=== PATIENT | male | born 1935 | race Caucasian/White ===

== ENCOUNTER 2017-02-16 17:35 | Inpatient (IN) | payer MEDICARE ==
[2017-02-16] MEDS: BUDESONIDE 0.5 MG/2 ML NEBU INHALATION SCH (20:48)
[2017-02-16] MEDS: IPRATROPIUM-ALBUTEROL 3 ML NEB INHALATION SCH (20:48)
[2017-02-16] MEDS: MORPHINE SULFATE 2 MG/ML SYRINGE IVP PRN (22:01)
[2017-02-16] MEDS: AMPICILLIN-SULBACTAM 1.5 GM in SODIUM CHLORIDE 0.9% 50 ML IVPB SCH (23:38)
[2017-02-16] MEDS ORDERED: LISINOPRIL 2.5 MG TAB PO SCH (23:45)
[2017-02-17] MEDS: oxyCODONE-APAP 5-325MG 1 EACH TAB PO PRN ×3 (00:27→14:47)
[2017-02-17] MEDS: METOPROLOL TARTRATE 50 MG TAB PO SCH ×3 (01:00→22:00)
[2017-02-17] MEDS: ATORVASTATIN 10 MG TAB PO SCH ×2 (01:01→22:00)
[2017-02-17] MEDS: MORPHINE SULFATE 2 MG/ML SYRINGE IVP PRN ×2 (03:51→11:17)
[2017-02-17 06:02] LABS: Basophils % (A) 0 %; CH 32.1; CHCM 33.6; Eosinophils # (A) 0.1 k/uL (0-0.7); Eosinophils % (A) 1 %; HCT 27.4 % (39.0-53.0); HDW 2.57; HGB 9.2 gm/dL (13.0-17.5); Luc # (Auto) 0.11; Luc % (Auto) 1; Lymphocytes # (A) 1.2 k/uL (1.0-4.8); Lymphocytes % (A) 11 %; MCH 32.2 pg (25.0-35.0); MCHC 33.5 g/dL (31.0-37.0); Mean Platelet Volume 7.8; Monocytes # (A) 0.9 k/uL (0-1.0); Monocytes % (A) 8 %; Neutrophils # (A) 8.5 k/uL (1.3-7.7); Neutrophils % (A) 79 %; RBC 2.86 m/uL (4.30-5.90); RDW 13.5 % (11.5-15.5); WBC 10.8 k/uL (3.8-10.6); WBC (Perox) 10.77
[2017-02-17 06:15] LABS: Anion Gap 4 mmol/L; Blood Urea Nitrogen 28 mg/dL (9-20); Calcium 8.6 mg/dL (8.4-10.2); Carbon Dioxide 31 mmol/L (22-30); Chloride 101 mmol/L (98-107); Glucose 85 mg/dL (74-99); Magnesium 1.6 mg/dL (1.6-2.3); Non-African American GFR(MDRD) 58 (>60 ml/min/1.73 sqM); Phosphorous 3.1 mg/dL (2.5-4.5); Potassium 3.8 mmol/L (3.5-5.1); Sodium 136 mmol/L (137-145)
[2017-02-17 06:27] LABS: Glucose,Whole Blood 91 mg/dL (75-99)
[2017-02-17] MEDS: INSULIN LISPRO (humaLOG) 300 UNIT/3 ML VIAL SQ SCH ×4 (06:52→22:01)
[2017-02-17] MEDS: BUDESONIDE 0.5 MG/2 ML NEBU INHALATION SCH ×2 (07:58→20:16)
[2017-02-17] MEDS: IPRATROPIUM-ALBUTEROL 3 ML NEB INHALATION SCH ×4 (07:59→20:16)
[2017-02-17] MEDS: LIDOCAINE 5% PATCH TOPICAL SCH (08:54)
[2017-02-17] MEDS: AMPICILLIN-SULBACTAM 1.5 GM in SODIUM CHLORIDE 0.9% 50 ML IVPB SCH ×3 (08:54→23:12)
[2017-02-17] MEDS: methylPREDNISolone SOD SUCCI 40 MG/ML 1 ML VIAL IV SCH ×2 (08:55→22:01)
[2017-02-17] MEDS: LISINOPRIL 5 MG TAB PO SCH ×2 (08:55→22:00)
[2017-02-17] MEDS ORDERED: ENOXAPARIN 40 MG/0.4 ML SYRINGE SQ SCH (09:00)
--- NOTE | 2017-02-17 09:45 | XR ---
EXAMINATION TYPE: XR chest 2V DATE OF EXAM: 02/17/2017 9:25 AM COMPARISON: NONE HISTORY: Pneumothorax. TECHNIQUE: Frontal and lateral views of the chest are obtained. FINDINGS: There is right-sided small pneumothorax estimated approximately 15%. There is small right- sided pleural fluid collection or hydropneumothorax noted. There is patchy bibasilar atelectasis. No mediastinal shift is seen. The cardiac silhouette size is within normal limits. There are multiple di splaced posterior lateral right rib fractures. Flail chest is suspected with at least 3 consecutive r ibs fractured in 2 or more locations. There is partial visualization of surgical change in the mid eli mbar spine. IMPRESSION: Small right hydropneumothorax estimated 15%. No mediastinal shift. Bibasilar atelectasis is noted. Flail chest appearance strongly suspected. Results communicated to patient's nurse via telephone. Small right pneumothorax is noted on transfer from outside institution.
[2017-02-17] MEDS ORDERED: DEXTROSE 50%-WATER 50 ML SYRINGE IVP ONE (11:58)
[2017-02-17 12:16] LABS: Glucose,Whole Blood 65 mg/dL (75-99)
[2017-02-17 12:22] LABS: Glucose,Whole Blood 73 mg/dL (75-99)
[2017-02-17] MEDS: DEXTROSE 5% IN WATER 1,000 ML IV SCH (12:29)
--- NOTE | 2017-02-17 13:59 | P.CNPUL ---
History of Present Illness Consult date: 02/17/17 Reason for consult: pneumothorax Chief complaint: Pneumothorax History of present illness: This is an 81-year-old male who was transferred to [facility] from [facility]. The patient was admitted on 02/09/2017. He had a fall at home and had multiple right-sided rib fractures with flail chest. The patient underwent DTs during his hospital stay there. He is currently awake and alert and oriented. The patient did have a right-sided pneumothorax after which a pigtail catheter was placed. With improvement of the pneumothorax. After the catheter was removed the pneumothorax recurred. The patient was subsequently transferred to [facility] for thoracic surgery evaluation for possible pleurodesis. Review of Systems All systems: negative Past Medical History Past Medical History: COPD, GERD/Reflux, Renal Disease, Respiratory Disorder History of Any Multi-Drug Resistant Organisms: None Reported Past Surgical History: Back Surgery, Orthopedic Surgery Additional Past Surgical History / Comment(s): 5 back surgies, b/L shoulder surgies, Past Anesthesia/Blood Transfusion Reactions: No Reported Reaction Past Psychological History: No Psychological Hx Reported Smoking Status: Current every day smoker Past Alcohol Use History: Abuse Past Drug Use History: None Reported - Past Family History Father Family Medical History: No Reported History Mother Family Medical History: Unable to Obtain Medications and Allergies Home Medications Medication Instructions Recorded Confirmed Type Albuterol Inhaler [Ventolin Hfa 1 - 2 puff INHALATION RT-Q6H PRN 02/16/17 History Inhaler] Amitriptyline HCl [Elavil] 100 mg PO HS 02/16/17 02/16/17 History Lisinopril [Zestril] 5 mg PO BID 02/16/17 02/16/17 History Metoprolol Tartrate [Lopressor] 50 mg PO BID 02/16/17 02/16/17 History Omeprazole 40 mg PO DAILY 02/16/17 02/16/17 History Simvastatin [Zocor] 20 mg PO HS 02/16/17 02/16/17 History Terazosin HCl [Hytrin] 10 mg PO HS 02/16/17 02/16/17 History oxyCODONE-APAP 10-325MG [Percocet 1 tab PO Q4H PRN 02/16/17 02/16/17 History 10-325 mg] Allergies Allergy/AdvReac Type Severity Reaction Status Date / Time No Known Allergies Allergy Unverified 02/16/17 19:59 Physical Exam Osteopathic Statement: *. No significant issues noted on an osteopathic structural exam other than those noted in the History and Physical/Consult. Vitals: Vital Signs Temp Pulse Pulse Resp BP BP Pulse Ox 02/17/17 11:21 98.8 F 68 14 172/87 96 02/17/17 08:20 68 02/17/17 08:05 68 96 02/17/17 08:00 98.8 F 68 16 144/81 95 02/17/17 04:00 99.2 F 67 18 194/91 211/93 98 02/17/17 00:00 100.1 F H 78 18 195/89 96 02/16/17 20:49 80 02/16/17 20:39 80 02/16/17 20:13 100.0 F H 84 18 199/91 97 Intake and Output 02/16/17 02/17/17 02/17/17 22:59 06:59 14:59 Intake Total 50 Output Total 1175 100 Balance -1125 -100 Intake: Intake, IV Titration 50 Amount Ampicillin-Sulbactam 1.5 50 gm In Sodium Chloride 0.9 % 50 ml @ 100 mls/hr IVPB Q8HR [facility] Rx#:[id number] Output: Urine 1175 100 Other: Voiding Method Urinal Urinal # Bowel Movements 0 Weight 65.6 kg 58 kg Gen.: Patient is alert and oriented 3, no acute distress Cardiovascular: Regular rate and rhythm, S1/S2 Lungs: Coarse breath sounds bilaterally Abdomen: Soft nontender nondistended positive bowel sounds Extremities: No edema Results - Laboratory Findings CBC and BMP: 02/17/17 05:44 02/17/17 05:44 Abnormal lab findings: Abnormal Labs 02/17/17 02/17/17 02/17/17 05:44 05:44 11:55 WBC 10.8 H RBC 2.86 L Hgb 9.2 L Hct 27.4 L Neutrophils # 8.5 H Sodium 136 L Carbon Dioxide 31 H BUN 28 H POC Glucose (mg/dL) 65 L 02/17/17 12:18 WBC RBC Hgb Hct Neutrophils # Sodium Carbon Dioxide BUN POC Glucose (mg/dL) 73 L - Diagnostic Findings Chest x-ray: report reviewed, image reviewed Assessment and Plan Plan: Status post fall with multiple right-sided rib fractures Flail chest Right [place]-pneumothorax Acute exacerbation of COPD Acute hypoxic respiratory failure Aspiration pneumonia, now improving Elevated right hemidiaphragm Chronic kidney disease stage III Alcoholism Active tobacco abuse Anemia Hyponatremia O2 to maintain saturation greater than or equal to 90% Pain control Consult thoracic surgery for possible pleurodesis Consideration for possible rib plating Pulmicort Steroid taper Duo nebs PT and OT Incentive spirometry and pulmonary hygiene GI and DVT prophylaxis Thank you for this consultation we'll continue to follow along
--- NOTE | 2017-02-17 15:44 | P.GSCN ---
History of Present Illness Consult date: 02/17/17 Reason for Consult: right hydropneumothorax status post right sided rib fractures Requesting physician: Marbin Garcia History of present illness: patient is an 81 years old gentleman transferred from [facility]. He was admitted there on 02/09/2017 status post mechanical fall at home with resultant multiple right-sided rib fractures. Patient at some point required a right-sided pigtail catheter for a right-sided pneumothorax with good expansion of the lung, however the right pneumothorax reformed after removing the catheter and patient was transferred to [facility] for further management. Patient clinically is stable. His O2 saturation is anywhere between 94-96% on 3 L. His vitals are stable with slight elevated blood pressure. He is giving a good cough without excessive pain. He is using his incentive spirometer with a level at around 800 mL at this point. Review of Systems - Cardiovascular Reports dyspnea on exertion - Respiratory Reports cough, Reports dyspnea, Reports pain on inspiration - Gastrointestinal Reports heartburn - Musculoskeletal Reports gait dysfunction - Neurological Reports balance difficulties Past Medical History Past Medical History: COPD, GERD/Reflux, Renal Disease, Respiratory Disorder History of Any Multi-Drug Resistant Organisms: None Reported Past Surgical History: Back Surgery, Orthopedic Surgery Additional Past Surgical History / Comment(s): 5 back surgies, b/L shoulder surgies, Past Anesthesia/Blood Transfusion Reactions: No Reported Reaction Past Psychological History: No Psychological Hx Reported Smoking Status: Current every day smoker Past Alcohol Use History: Abuse Past Drug Use History: None Reported - Past Family History Father Family Medical History: No Reported History Mother Family Medical History: Unable to Obtain Medications and Allergies Home Medications Medication Instructions Recorded Confirmed Type Albuterol Inhaler [Ventolin Hfa 1 - 2 puff INHALATION RT-Q6H PRN 02/16/17 History Inhaler] Amitriptyline HCl [Elavil] 100 mg PO HS 02/16/17 02/16/17 History Lisinopril [Zestril] 5 mg PO BID 02/16/17 02/16/17 History Metoprolol Tartrate [Lopressor] 50 mg PO BID 02/16/17 02/16/17 History Omeprazole 40 mg PO DAILY 02/16/17 02/16/17 History Simvastatin [Zocor] 20 mg PO HS 02/16/17 02/16/17 History Terazosin HCl [Hytrin] 10 mg PO HS 02/16/17 02/16/17 History oxyCODONE-APAP 10-325MG [Percocet 1 tab PO Q4H PRN 02/16/17 02/16/17 History 10-325 mg] Allergies Allergy/AdvReac Type Severity Reaction Status Date / Time No Known Allergies Allergy Unverified 02/16/17 19:59 Surgical - Exam Vital Signs Temp Pulse Resp BP Pulse Ox 100.0 F H 84 18 199/91 97 02/16/17 20:13 02/16/17 20:13 02/16/17 20:13 02/16/17 20:13 02/16/17 20:13 - General no distress - Respiratory right: dullness - Cardiovascular Heart Sounds: normal: S1, S2 - Abdomen Abdomen: soft, non tender, no guarding, no rigid, no rebound - Genitourinary deferred - Rectum deferred - Musculoskeletal uses a cane to walk Results - Labs 02/17/17 05:44 02/17/17 05:44 Abnormal Lab Results - Last 24 Hours (Table) 02/17/17 02/17/17 02/17/17 Range/Units 05:44 05:44 11:55 WBC 10.8 H (3.8-10.6) k/uL RBC 2.86 L (4.30-5.90) m/uL Hgb 9.2 L (13.0-17.5) gm/dL Hct 27.4 L (39.0-53.0) % Neutrophils # 8.5 H (1.3-7.7) k/uL Sodium 136 L (137-145) mmol/L Carbon Dioxide 31 H (22-30) mmol/L BUN 28 H (9-20) mg/dL POC Glucose (mg/dL) 65 L (75-99) mg/dL 02/17/17 Range/Units 12:18 WBC (3.8-10.6) k/uL RBC (4.30-5.90) m/uL Hgb (13.0-17.5) gm/dL Hct (39.0-53.0) % Neutrophils # (1.3-7.7) k/uL Sodium (137-145) mmol/L Carbon Dioxide (22-30) mmol/L BUN (9-20) mg/dL POC Glucose (mg/dL) 73 L (75-99) mg/dL Diabetes panel 02/17/17 Range/Units 05:44 Sodium 136 L (137-145) mmol/L Potassium 3.8 (3.5-5.1) mmol/L Chloride 101 (98-107) mmol/L Carbon Dioxide 31 H (22-30) mmol/L BUN 28 H (9-20) mg/dL Creatinine 1.20 (0.66-1.25) mg/dL Glucose 85 (74-99) mg/dL Calcium 8.6 (8.4-10.2) mg/dL Calcium panel 02/17/17 Range/Units 05:44 Calcium 8.6 (8.4-10.2) mg/dL Phosphorus 3.1 (2.5-4.5) mg/dL Pituitary panel 02/17/17 Range/Units 05:44 Sodium 136 L (137-145) mmol/L Potassium 3.8 (3.5-5.1) mmol/L Chloride 101 (98-107) mmol/L Carbon Dioxide 31 H (22-30) mmol/L BUN 28 H (9-20) mg/dL Creatinine 1.20 (0.66-1.25) mg/dL Glucose 85 (74-99) mg/dL Calcium 8.6 (8.4-10.2) mg/dL Adrenal panel 02/17/17 Range/Units 05:44 Sodium 136 L (137-145) mmol/L Potassium 3.8 (3.5-5.1) mmol/L Chloride 101 (98-107) mmol/L Carbon Dioxide 31 H (22-30) mmol/L BUN 28 H (9-20) mg/dL Creatinine 1.20 (0.66-1.25) mg/dL Glucose 85 (74-99) mg/dL Calcium 8.6 (8.4-10.2) mg/dL - Imaging Chest x-ray: report reviewed, image reviewed Assessment and Plan Plan: 81 years old gentleman active smoker status post mechanical fall on 02/09/2017 with resultant multiple right-sided rib fractures. Currently there is a right pneumothorax with some right-sided effusion status post removal of pigtail catheter. It is relatively comfortable on low oxygen more than 1 week after his fall and see no indication for rib fixation. As far as the right hydropneumothorax, I would with a repeat x-ray tomorrow and make a decision accordingly. Meanwhile patient should continue using his incentive spirometer along with medical therapy to optimize his lungs. We'll be following the patient closely with you. Thank you for the privilege of this consult
[2017-02-17 16:52] LABS: Glucose,Whole Blood 149 mg/dL (75-99)
--- NOTE | 2017-02-17 17:10 | P.HPIM ---
History of Present Illness H&P Date: 02/17/17 81-year-old gentleman who was admitted to Dr. Atkinson's service wasn't seen in cross coverage at [facility]. Patient apparently had sustained a fall as well as rib fractures noted on the right side initially thereafter patient was noted to have a pneumothorax on the right side. He shouldn't was started on a Thora vent which was discontinued on 02/15/2017. A repeat chest x- ray after removal of the catheter did not note any pneumothorax. Patient was seen on my service on 02/16/2017 appeared to have some difficulty breathing. Up obtained a repeat chest x-ray was noted to have a 15-20% pneumothorax. Patient was also having significant amount of pain with no significant progression after 5 days patient was triaged to [facility] for evaluation by thoracic surgeon. Today patient appears to be doing well states that his breathing is stable denies having headaches, blurry vision, nausea, vomiting, diarrhea. Off note patient's reason for fall was attribute it to a mechanical reason and patient also having a significant amount of alcohol intake. Review of Systems All systems: negative (Noted in HPI) Past Medical History Past Medical History: COPD, GERD/Reflux, Renal Disease, Respiratory Disorder History of Any Multi-Drug Resistant Organisms: None Reported Past Surgical History: Back Surgery, Orthopedic Surgery Additional Past Surgical History / Comment(s): 5 back surgies, b/L shoulder surgies, Past Anesthesia/Blood Transfusion Reactions: No Reported Reaction Past Psychological History: No Psychological Hx Reported Smoking Status: Current every day smoker Past Alcohol Use History: Abuse Past Drug Use History: None Reported - Past Family History Father Family Medical History: No Reported History Mother Family Medical History: Unable to Obtain Medications and Allergies Home Medications Medication Instructions Recorded Confirmed Type Albuterol Inhaler [Ventolin Hfa 1 - 2 puff INHALATION RT-Q6H PRN 02/16/17 History Inhaler] Amitriptyline HCl [Elavil] 100 mg PO HS 02/16/17 02/16/17 History Lisinopril [Zestril] 5 mg PO BID 02/16/17 02/16/17 History Metoprolol Tartrate [Lopressor] 50 mg PO BID 02/16/17 02/16/17 History Omeprazole 40 mg PO DAILY 02/16/17 02/16/17 History Simvastatin [Zocor] 20 mg PO HS 02/16/17 02/16/17 History Terazosin HCl [Hytrin] 10 mg PO HS 02/16/17 02/16/17 History oxyCODONE-APAP 10-325MG [Percocet 1 tab PO Q4H PRN 02/16/17 02/16/17 History 10-325 mg] Allergies Allergy/AdvReac Type Severity Reaction Status Date / Time No Known Allergies Allergy Unverified 02/16/17 19:59 Physical Exam Vitals: Vital Signs Temp Pulse Pulse Resp BP BP Pulse Ox 02/17/17 16:11 76 02/17/17 16:01 80 02/17/17 15:27 98.8 F 91 16 148/74 94 L 02/17/17 11:21 98.8 F 68 14 172/87 96 02/17/17 08:20 68 02/17/17 08:05 68 96 02/17/17 08:00 98.8 F 68 16 144/81 95 02/17/17 04:00 99.2 F 67 18 194/91 211/93 98 02/17/17 00:00 100.1 F H 78 18 195/89 96 02/16/17 20:49 80 02/16/17 20:39 80 02/16/17 20:13 100.0 F H 84 18 199/91 97 Intake and Output 02/17/17 02/17/17 02/17/17 06:59 14:59 22:59 Intake Total 50 200 Output Total 1175 600 100 Balance -1125 -400 -100 Intake: Intake, IV Titration 50 200 Amount Ampicillin-Sulbactam 1.5 50 50 gm In Sodium Chloride 0.9 % 50 ml @ 100 mls/hr IVPB Q8HR [facility] Rx#:[id number] Dextrose 5% in Water 1, 150 000 ml @ 75 mls/hr IV . [id number] [facility] Rx#:[id number] Output: Urine 1175 600 100 Other: Voiding Method Urinal Urinal Urinal # Bowel Movements 0 Weight 58 kg Physical exam Gen. appearance oriented 3 in no distress Neck is supple no JVD Lungs diminished breath sounds no significant wheezing rhonchi or crackles Heart S1-S2 heard regular rate and rhythm no murmurs appreciated Abdomen is soft nontender no organomegaly bowel sounds are intact Neurologically cranial nerves II-12 grossly intact no focal motor or sensory deficits noted Unstable gait Skin no abnormalities appreciated Results CBC & Chem 7: 02/17/17 05:44 02/17/17 05:44 Labs: Abnormal Lab Results - Last 24 Hours (Table) 02/17/17 02/17/17 02/17/17 Range/Units 05:44 05:44 11:55 WBC 10.8 H (3.8-10.6) k/uL RBC 2.86 L (4.30-5.90) m/uL Hgb 9.2 L (13.0-17.5) gm/dL Hct 27.4 L (39.0-53.0) % Neutrophils # 8.5 H (1.3-7.7) k/uL Sodium 136 L (137-145) mmol/L Carbon Dioxide 31 H (22-30) mmol/L BUN 28 H (9-20) mg/dL POC Glucose (mg/dL) 65 L (75-99) mg/dL 02/17/17 02/17/17 Range/Units 12:18 16:45 WBC (3.8-10.6) k/uL RBC (4.30-5.90) m/uL Hgb (13.0-17.5) gm/dL Hct (39.0-53.0) % Neutrophils # (1.3-7.7) k/uL Sodium (137-145) mmol/L Carbon Dioxide (22-30) mmol/L BUN (9-20) mg/dL POC Glucose (mg/dL) 73 L 149 H (75-99) mg/dL Thrombosis Risk Factor Assmnt - Choose All That Apply Any of the Below Risk Factors Present?: Yes Each Factor Represents 1 point: Abnormal pulmonary function (COPD), Medical pt on bed rest Each Risk Factor Represents 3 Points: Age 75 years or older Other congenital or acquired thrombophilia - If yes, enter type in comment: No Each Risk Factor Represents 5 Points: Multiple trauma (< 1 month) Thrombosis Risk Factor Assessment Total Risk Factor Score: 10 Thrombosis Risk Factor Assessment Level: High Risk Assessment and Plan Plan: Right-sided pneumothorax secondary to a traumatic fall causing right-sided rib fractures #2 history of hypertension #3 alcohol abuse. #4 CK D stage III #5 COPD #6 GERD #7 chronic opioid dependency #8 acute tracheobronchitis with some suspicion for an aspiration pneumonia Plan Discussed the case with the CT surgery and the pulmonology team. Continue ongoing care will continue with antibiotics. Patient's blood pressure medications were appropriately reconciled. In regards to patient's alcohol use will obtain a Folic acid and B12 levels as well PT OT should be consulted tomorrow. Will continue monitoring as per discussion with the thoracic surgery Repeat labs in a.m. DVT prophylaxis.
[2017-02-17] MEDS: HEPARIN SODIUM,PORCINE 5,000 UNIT/ML 1 ML VIAL SQ SCH ×2 (17:43→23:13)
[2017-02-17 21:42] LABS: Glucose,Whole Blood 200 mg/dL (75-99)
[2017-02-18] MEDS: DEXTROSE 5% IN WATER 1,000 ML IV SCH ×2 (02:34→15:45)
[2017-02-18 06:37] LABS: Glucose,Whole Blood 125 mg/dL (75-99)
[2017-02-18] MEDS: INSULIN LISPRO (humaLOG) 300 UNIT/3 ML VIAL SQ SCH ×4 (06:37→21:18)
[2017-02-18] MEDS: PANTOPRAZOLE 40 MG TABLET PO SCH (06:43)
[2017-02-18 07:13] LABS: Basophils % (A) 0 %; CH 31.9; CHCM 32.9; Eosinophils % (A) 0 %; HCT 28.8 % (39.0-53.0); HGB 9.4 gm/dL (13.0-17.5); Luc % (Auto) 1; Lymphocytes # (A) 0.7 k/uL (1.0-4.8); Lymphocytes % (A) 7 %; MCH 31.9 pg (25.0-35.0); MCHC 32.7 g/dL (31.0-37.0); MCV 97.4 fL (80.0-100.0); Mean Platelet Volume 7.1; Monocytes # (A) 0.6 k/uL (0-1.0); Monocytes % (A) 6 %; Neutrophils # (A) 8.6 k/uL (1.3-7.7); Neutrophils % (A) 86 %; RBC 2.96 m/uL (4.30-5.90); RDW 13.5 % (11.5-15.5); WBC (Perox) 10.14
[2017-02-18 07:22] LABS: ALT 28 U/L (21-72); AST 22 U/L (17-59); Alkaline Phosphatase 50 U/L (38-126); Anion Gap 9 mmol/L; Blood Urea Nitrogen 31 mg/dL (9-20); Calcium 8.6 mg/dL (8.4-10.2); Carbon Dioxide 28 mmol/L (22-30); Chloride 99 mmol/L (98-107); Glucose 113 mg/dL (74-99); Non-African American GFR(MDRD) >60 (>60 ml/min/1.73 sqM); Potassium 4.2 mmol/L (3.5-5.1); Sodium 136 mmol/L (137-145); Total Bilirubin 0.7 mg/dL (0.2-1.3); Total Protein 5.9 g/dL (6.3-8.2)
--- NOTE | 2017-02-18 07:27 | XR ---
EXAMINATION TYPE: XR chest 2V DATE OF EXAM: 02/18/2017 6:30 AM COMPARISON: 02/17/2017 HISTORY: Shortness of breath TECHNIQUE: Frontal and lateral views of the chest are obtained. FINDINGS: Right-sided pneumothorax persists and appears to have enlarged in the interval. Measurement from the chest wall to the pleural alignment currently is 3.3 cm versus 1.8 cm previously. Multiple right-sided ribs noted which are displaced both reflect flail chest. No evidence for infiltrate. Right-sided basilar atelectasis noted. Heart size is stable. Mediastinal structures are stable and grossly unremarkable. No evidence for hilar prominence. Degenerative changes dorsal spine. IMPRESSION: 1. Progression of right-sided pneumothorax estimated at 20-25%. 2. Multiple right-sided rib fractures with flail chest appearance. A Yellow message has been communicated to Linda Ramirez via the [employer] Critical Result system on 02/18/2017 7:24 AM, Message ID [id number].
--- NOTE | 2017-02-18 08:01 | P.PN ---
Subjective Principal diagnosis: pneumothorax This is a continue progress note an 81-year-old white male essentially transferred from [facility] with history of trauma resulting in rib fractures. Possible flail chest was considered. He seems stable at this time. He would like to go home. He has an underlying history of DJD with COPD otherwise. Objective - Vital Signs Vital signs: Vital Signs Temp 99.5 F 02/17/17 20:00 Pulse 98 02/18/17 04:00 Resp 20 02/18/17 04:00 BP 181/97 02/18/17 04:00 Pulse Ox 96 02/18/17 04:00 Intake & Output 02/17/17 02/18/17 02/18/17 18:59 06:59 18:59 Intake Total 200 Output Total 700 450 Balance -500 -450 Weight 58 kg Intake: Intake, IV Titration 200 Amount Ampicillin-Sulbactam 1.5 50 gm In Sodium Chloride 0.9 % 50 ml @ 100 mls/hr IVPB Q8HR [facility] Rx#:[id number] Dextrose 5% in Water 1, 150 000 ml @ 75 mls/hr IV . [id number] [facility] Rx#:[id number] Output: Urine 700 450 Other: Voiding Method Urinal # Bowel Movements 0 - Constitutional General appearance: Present: thin - EENT Eyes: Absent: abnormal pupil - Respiratory Respiratory: bilateral: diminished - Cardiovascular Rhythm: regular - Gastrointestinal General gastrointestinal: Present: soft. Absent: tenderness - Integumentary Integumentary: Absent: cyanotic - Labs CBC & Chem 7: 02/18/17 06:36 02/18/17 06:36 Labs: Abnormal Lab Results - Last 24 Hours (Table) 02/17/17 02/17/17 02/17/17 Range/Units 11:55 12:18 16:45 RBC (4.30-5.90) m/uL Hgb (13.0-17.5) gm/dL Hct (39.0-53.0) % Neutrophils # (1.3-7.7) k/uL Lymphocytes # (1.0-4.8) k/uL Sodium (137-145) mmol/L BUN (9-20) mg/dL Glucose (74-99) mg/dL POC Glucose (mg/dL) 65 L 73 L 149 H (75-99) mg/dL Total Protein (6.3-8.2) g/dL Albumin (3.5-5.0) g/dL 02/17/17 02/18/17 02/18/17 Range/Units 21:13 06:33 06:36 RBC 2.96 L (4.30-5.90) m/uL Hgb 9.4 L (13.0-17.5) gm/dL Hct 28.8 L (39.0-53.0) % Neutrophils # 8.6 H (1.3-7.7) k/uL Lymphocytes # 0.7 L (1.0-4.8) k/uL Sodium (137-145) mmol/L BUN (9-20) mg/dL Glucose (74-99) mg/dL POC Glucose (mg/dL) 200 H 125 H (75-99) mg/dL Total Protein (6.3-8.2) g/dL Albumin (3.5-5.0) g/dL 02/18/17 Range/Units 06:36 RBC (4.30-5.90) m/uL Hgb (13.0-17.5) gm/dL Hct (39.0-53.0) % Neutrophils # (1.3-7.7) k/uL Lymphocytes # (1.0-4.8) k/uL Sodium 136 L (137-145) mmol/L BUN 31 H (9-20) mg/dL Glucose 113 H (74-99) mg/dL POC Glucose (mg/dL) (75-99) mg/dL Total Protein 5.9 L (6.3-8.2) g/dL Albumin 3.2 L (3.5-5.0) g/dL Assessment and Plan (1) Pneumothorax Status: Acute (2) Rib fracture Status: Acute (3) Opiate dependence Status: Acute (4) COPD (chronic obstructive pulmonary disease) Status: Acute (5) DJD (degenerative joint disease) Status: Acute Plan: await decision from thoracic surgery for treatment. Continue to follow with pulmonology. See orders otherwise. Time with Patient: Greater than 30
[2017-02-18] MEDS: METOPROLOL TARTRATE 50 MG TAB PO SCH ×2 (08:57→21:35)
[2017-02-18] MEDS: LIDOCAINE 5% PATCH TOPICAL SCH (08:57)
[2017-02-18] MEDS: LISINOPRIL 5 MG TAB PO SCH ×2 (08:58→21:35)
[2017-02-18] MEDS: HEPARIN SODIUM,PORCINE 5,000 UNIT/ML 1 ML VIAL SQ SCH ×2 (08:58→15:52)
[2017-02-18] MEDS: methylPREDNISolone SOD SUCCI 40 MG/ML 1 ML VIAL IV SCH ×2 (08:58→21:35)
[2017-02-18] MEDS: BUDESONIDE 0.5 MG/2 ML NEBU INHALATION SCH ×2 (09:03→21:10)
[2017-02-18] MEDS: IPRATROPIUM-ALBUTEROL 3 ML NEB INHALATION SCH ×4 (09:03→21:10)
[2017-02-18] MEDS: oxyCODONE-APAP 5-325MG 1 EACH TAB PO PRN (09:21)
--- NOTE | 2017-02-18 10:55 | P.PN ---
Subjective Principal diagnosis: Right pneumothorax Patient seen and examined. Patient states he does not feel well today. He states he is having more shortness of breath. He is unable to cough and expectorate his sputum. He states his pain is "extremely bad." Objective - Vital Signs Vital signs: Vital Signs Temp 97.3 F L 02/18/17 08:00 Pulse 96 02/18/17 09:28 Resp 20 02/18/17 08:00 BP 192/100 02/18/17 08:00 Pulse Ox 94 L 02/18/17 08:00 Intake & Output 02/17/17 02/18/17 02/18/17 18:59 06:59 18:59 Intake Total 200 50 Output Total 700 450 Balance -500 -450 50 Weight 58 kg Intake: Intake, IV Titration 200 50 Amount Ampicillin-Sulbactam 1.5 50 50 gm In Sodium Chloride 0.9 % 50 ml @ 100 mls/hr IVPB Q8HR [facility] Rx#:[id number] Dextrose 5% in Water 1, 150 000 ml @ 75 mls/hr IV . [id number] [facility] Rx#:[id number] Output: Urine 700 450 Other: Voiding Method Urinal Urinal # Bowel Movements 0 - Exam Gen.: Patient is alert and oriented 3, no acute distress Cardiovascular: Regular rate and rhythm, S1/S2 Lungs: Coarse breath sounds bilaterally Abdomen: Soft nontender nondistended positive bowel sounds Extremities: No edema - Labs CBC & Chem 7: 02/18/17 06:36 02/18/17 06:36 Labs: Abnormal Lab Results - Last 24 Hours (Table) 02/17/17 02/17/17 02/17/17 Range/Units 11:55 12:18 16:45 RBC (4.30-5.90) m/uL Hgb (13.0-17.5) gm/dL Hct (39.0-53.0) % Neutrophils # (1.3-7.7) k/uL Lymphocytes # (1.0-4.8) k/uL Sodium (137-145) mmol/L BUN (9-20) mg/dL Glucose (74-99) mg/dL POC Glucose (mg/dL) 65 L 73 L 149 H (75-99) mg/dL Total Protein (6.3-8.2) g/dL Albumin (3.5-5.0) g/dL 02/17/17 02/18/17 02/18/17 Range/Units 21:13 06:33 06:36 RBC 2.96 L (4.30-5.90) m/uL Hgb 9.4 L (13.0-17.5) gm/dL Hct 28.8 L (39.0-53.0) % Neutrophils # 8.6 H (1.3-7.7) k/uL Lymphocytes # 0.7 L (1.0-4.8) k/uL Sodium (137-145) mmol/L BUN (9-20) mg/dL Glucose (74-99) mg/dL POC Glucose (mg/dL) 200 H 125 H (75-99) mg/dL Total Protein (6.3-8.2) g/dL Albumin (3.5-5.0) g/dL 02/18/17 Range/Units 06:36 RBC (4.30-5.90) m/uL Hgb (13.0-17.5) gm/dL Hct (39.0-53.0) % Neutrophils # (1.3-7.7) k/uL Lymphocytes # (1.0-4.8) k/uL Sodium 136 L (137-145) mmol/L BUN 31 H (9-20) mg/dL Glucose 113 H (74-99) mg/dL POC Glucose (mg/dL) (75-99) mg/dL Total Protein 5.9 L (6.3-8.2) g/dL Albumin 3.2 L (3.5-5.0) g/dL Assessment and Plan Plan: Status post fall with multiple right-sided rib fractures Flail chest Right [place]-pneumothorax Acute exacerbation of COPD Acute hypoxic respiratory failure Aspiration pneumonia, now improving Elevated right hemidiaphragm Chronic kidney disease stage III Alcoholism Active tobacco abuse Anemia Hyponatremia O2 to maintain saturation greater than or equal to 90% Pain control Thoracic surgery for possible pleurodesis Consideration for possible rib plating Pulmicort Steroid taper Duo nebs PT and OT Incentive spirometry and pulmonary hygiene GI and DVT prophylaxis
[2017-02-18] MEDS: AMPICILLIN-SULBACTAM 1.5 GM in SODIUM CHLORIDE 0.9% 50 ML IVPB SCH ×2 (11:28→17:34)
[2017-02-18 11:38] LABS: Glucose,Whole Blood 81 mg/dL (75-99)
[2017-02-18] MEDS: MORPHINE SULFATE 2 MG/ML SYRINGE IVP PRN ×3 (11:38→21:36)
--- NOTE | 2017-02-18 12:44 | P.PN ---
Subjective Principal diagnosis: Right hydropneumothorax, status post right sided rib fractures, status post right pleural chest tube removal at [facility]. Patient currently sitting up in bed in no apparent distress. States he feels no significant shortness of breath. Objective - Vital Signs Vital signs: Vital Signs Temp 97.3 F L 02/18/17 08:00 Pulse 96 02/18/17 09:28 Resp 20 02/18/17 08:00 BP 192/100 02/18/17 08:00 Pulse Ox 94 L 02/18/17 08:00 Intake & Output 02/17/17 02/18/17 02/18/17 18:59 06:59 18:59 Intake Total 200 50 Output Total 700 450 201 Balance -500 -450 -151 Weight 58 kg Intake: Intake, IV Titration 200 50 Amount Ampicillin-Sulbactam 1.5 50 50 gm In Sodium Chloride 0.9 % 50 ml @ 100 mls/hr IVPB Q8HR [facility] Rx#:[id number] Dextrose 5% in Water 1, 150 000 ml @ 75 mls/hr IV . [id number] [facility] Rx#:[id number] Output: Urine 700 450 200 Stool 1 Other: Voiding Method Urinal Urinal # Bowel Movements 0 - Constitutional General appearance: Present: cooperative, no acute distress - Respiratory Details: Lungs sounds diminished bilaterally. Respirations even, nonlabored. Currently on 3 L nasal cannula with oxygen saturations in the mid to high 90s. Able to achieve 500 mL on incentive spirometry. - Cardiovascular Details: S1, S2 present. Regular rate and rhythm, normal sinus rhythm on telemetry. No edema present. - Gastrointestinal Gastrointestinal Comment(s): Abdomen soft, nontender, nondistended. Active bowel sounds 4 quadrants. Tolerating diet. - Genitourinary Genitourinary Comment(s): Voiding clear, yellow urine. - Musculoskeletal Musculoskeletal: Present: generalized weakness, strength equal bilaterally - Psychiatric Psychiatric: Present: A&O x's 3, appropriate affect, intact judgment & insight - Allied health notes Allied health notes reviewed: nursing - Labs CBC & Chem 7: 02/18/17 06:36 02/18/17 06:36 Labs: Abnormal Lab Results - Last 24 Hours (Table) 02/17/17 02/17/17 02/18/17 Range/Units 16:45 21:13 06:33 RBC (4.30-5.90) m/uL Hgb (13.0-17.5) gm/dL Hct (39.0-53.0) % Neutrophils # (1.3-7.7) k/uL Lymphocytes # (1.0-4.8) k/uL Sodium (137-145) mmol/L BUN (9-20) mg/dL Glucose (74-99) mg/dL POC Glucose (mg/dL) 149 H 200 H 125 H (75-99) mg/dL Total Protein (6.3-8.2) g/dL Albumin (3.5-5.0) g/dL 02/18/17 02/18/17 Range/Units 06:36 06:36 RBC 2.96 L (4.30-5.90) m/uL Hgb 9.4 L (13.0-17.5) gm/dL Hct 28.8 L (39.0-53.0) % Neutrophils # 8.6 H (1.3-7.7) k/uL Lymphocytes # 0.7 L (1.0-4.8) k/uL Sodium 136 L (137-145) mmol/L BUN 31 H (9-20) mg/dL Glucose 113 H (74-99) mg/dL POC Glucose (mg/dL) (75-99) mg/dL Total Protein 5.9 L (6.3-8.2) g/dL Albumin 3.2 L (3.5-5.0) g/dL - Imaging and Cardiology Chest x-ray: report reviewed, image reviewed Assessment and Plan (1) Pneumothorax, right Status: Acute (2) Tobacco dependence Status: Acute (3) Rib fracture Status: Acute Plan: 1. Sequential chest x-rays reviewed. Patient is in no distress. Will continue to monitor, no surgical intervention at this time. 2. Encourage incentive spirometry use. 3. Encourage smoking cessation. 4. Increase activity, ambulate in hallway. 5. GI for/DVT prophylaxis. 6. Antibiotic/steroid management per pulmonology. 7. Comorbid medical conditions to be treated per primary service. 8. Repeat chest x-ray in the morning. Time with Patient: Greater than 30
[2017-02-18 16:48] LABS: Glucose,Whole Blood 108 mg/dL (75-99)
--- NOTE | 2017-02-18 17:08 | P.GSCN ---
History of Present Illness Consult date: 02/18/17 Reason for Consult: Flail chest History of present illness: This 81-year-old male admitted to Dr. Atkinson service. Patient was transferred from [facility]. Apparently he sustained a fall and had a pneumothorax the right chest with multiple rib fractures suggestive of a flail chest. Patient was transferred to [facility]. He was originally admitted to Dr. Atkinson service. Cardiac surgery was consult as well as internal medicine. Patient is currently resting in bed. He states he has right chest wall pain. His initial injury was sustained when he fell in the bathroom. It is unclear if he hit his chest against the toilet. Review of Systems - Constitutional Reports as per HPI Past Medical History Past Medical History: COPD, GERD/Reflux, Renal Disease, Respiratory Disorder History of Any Multi-Drug Resistant Organisms: None Reported Past Surgical History: Back Surgery, Orthopedic Surgery Additional Past Surgical History / Comment(s): 5 back surgies, b/L shoulder surgies, Past Anesthesia/Blood Transfusion Reactions: No Reported Reaction Past Psychological History: No Psychological Hx Reported Smoking Status: Current every day smoker Past Alcohol Use History: Abuse Past Drug Use History: None Reported - Past Family History Father Family Medical History: No Reported History Mother Family Medical History: Unable to Obtain Medications and Allergies Home Medications Medication Instructions Recorded Confirmed Type Albuterol Inhaler [Ventolin Hfa 1 - 2 puff INHALATION RT-Q6H PRN 02/16/17 History Inhaler] Amitriptyline HCl [Elavil] 100 mg PO HS 02/16/17 02/16/17 History Lisinopril [Zestril] 5 mg PO BID 02/16/17 02/16/17 History Metoprolol Tartrate [Lopressor] 50 mg PO BID 02/16/17 02/16/17 History Omeprazole 40 mg PO DAILY 02/16/17 02/16/17 History Simvastatin [Zocor] 20 mg PO HS 02/16/17 02/16/17 History Terazosin HCl [Hytrin] 10 mg PO HS 02/16/17 02/16/17 History oxyCODONE-APAP 10-325MG [Percocet 1 tab PO Q4H PRN 02/16/17 02/16/17 History 10-325 mg] Allergies Allergy/AdvReac Type Severity Reaction Status Date / Time No Known Allergies Allergy Unverified 02/16/17 19:59 Surgical - Exam Vital Signs Temp Pulse Resp BP Pulse Ox 100.0 F H 84 18 199/91 97 02/16/17 20:13 02/16/17 20:13 02/16/17 20:13 02/16/17 20:13 02/16/17 20:13 - General well developed, no distress - Eyes PERRL - ENT normal pinna - Neck no masses - Respiratory tender right chest wall normal expansion - Cardiovascular Rhythm: regular - Abdomen Abdomen: soft, non tender Results - Labs 02/18/17 06:36 02/18/17 06:36 Abnormal Lab Results - Last 24 Hours (Table) 02/17/17 02/18/17 02/18/17 Range/Units 21:13 06:33 06:36 RBC 2.96 L (4.30-5.90) m/uL Hgb 9.4 L (13.0-17.5) gm/dL Hct 28.8 L (39.0-53.0) % Neutrophils # 8.6 H (1.3-7.7) k/uL Lymphocytes # 0.7 L (1.0-4.8) k/uL Sodium (137-145) mmol/L BUN (9-20) mg/dL Glucose (74-99) mg/dL POC Glucose (mg/dL) 200 H 125 H (75-99) mg/dL Total Protein (6.3-8.2) g/dL Albumin (3.5-5.0) g/dL 02/18/17 02/18/17 Range/Units 06:36 16:31 RBC (4.30-5.90) m/uL Hgb (13.0-17.5) gm/dL Hct (39.0-53.0) % Neutrophils # (1.3-7.7) k/uL Lymphocytes # (1.0-4.8) k/uL Sodium 136 L (137-145) mmol/L BUN 31 H (9-20) mg/dL Glucose 113 H (74-99) mg/dL POC Glucose (mg/dL) 108 H (75-99) mg/dL Total Protein 5.9 L (6.3-8.2) g/dL Albumin 3.2 L (3.5-5.0) g/dL Diabetes panel 02/18/17 Range/Units 06:36 Sodium 136 L (137-145) mmol/L Potassium 4.2 (3.5-5.1) mmol/L Chloride 99 (98-107) mmol/L Carbon Dioxide 28 (22-30) mmol/L BUN 31 H (9-20) mg/dL Creatinine 1.04 (0.66-1.25) mg/dL Glucose 113 H (74-99) mg/dL Calcium 8.6 (8.4-10.2) mg/dL AST 22 (17-59) U/L ALT 28 (21-72) U/L Alkaline Phosphatase 50 (38-126) U/L Total Protein 5.9 L (6.3-8.2) g/dL Albumin 3.2 L (3.5-5.0) g/dL Calcium panel 02/18/17 Range/Units 06:36 Calcium 8.6 (8.4-10.2) mg/dL Albumin 3.2 L (3.5-5.0) g/dL Pituitary panel 02/18/17 Range/Units 06:36 Sodium 136 L (137-145) mmol/L Potassium 4.2 (3.5-5.1) mmol/L Chloride 99 (98-107) mmol/L Carbon Dioxide 28 (22-30) mmol/L BUN 31 H (9-20) mg/dL Creatinine 1.04 (0.66-1.25) mg/dL Glucose 113 H (74-99) mg/dL Calcium 8.6 (8.4-10.2) mg/dL Adrenal panel 02/18/17 Range/Units 06:36 Sodium 136 L (137-145) mmol/L Potassium 4.2 (3.5-5.1) mmol/L Chloride 99 (98-107) mmol/L Carbon Dioxide 28 (22-30) mmol/L BUN 31 H (9-20) mg/dL Creatinine 1.04 (0.66-1.25) mg/dL Glucose 113 H (74-99) mg/dL Calcium 8.6 (8.4-10.2) mg/dL Total Bilirubin 0.7 (0.2-1.3) mg/dL AST 22 (17-59) U/L ALT 28 (21-72) U/L Alkaline Phosphatase 50 (38-126) U/L Total Protein 5.9 L (6.3-8.2) g/dL Albumin 3.2 L (3.5-5.0) g/dL - Imaging Chest x-ray: report reviewed Assessment and Plan Plan: Fall with multiple right rib fractures and right hemopneumothorax. Patient is being followed by cardiovascular thoracic surgery and pulmonology. He may require reinsertion of his chest tube.
[2017-02-18 20:46] LABS: Glucose,Whole Blood 128 mg/dL (75-99)
[2017-02-18] MEDS: ATORVASTATIN 10 MG TAB PO SCH (21:35)
[2017-02-19] MEDS: HEPARIN SODIUM,PORCINE 5,000 UNIT/ML 1 ML VIAL SQ SCH ×4 (00:01→23:51)
[2017-02-19] MEDS: AMPICILLIN-SULBACTAM 1.5 GM in SODIUM CHLORIDE 0.9% 50 ML IVPB SCH ×5 (00:05→23:49)
[2017-02-19] MEDS: MORPHINE SULFATE 2 MG/ML SYRINGE IVP PRN ×6 (01:46→23:51)
[2017-02-19] MEDS: DEXTROSE 5% IN WATER 1,000 ML IV SCH ×2 (03:56→19:46)
[2017-02-19 06:43] LABS: Basophils % (A) 0 %; CH 31.2; CHCM 31.7; Eosinophils % (A) 0 %; HCT 26.3 % (39.0-53.0); HDW 2.45; HGB 8.2 gm/dL (13.0-17.5); Luc # (Auto) 0.15; Luc % (Auto) 1; Lymphocytes # (A) 0.6 k/uL (1.0-4.8); Lymphocytes % (A) 5 %; MCH 30.8 pg (25.0-35.0); MCHC 31.1 g/dL (31.0-37.0); MCV 99.1 fL (80.0-100.0); Mean Platelet Volume 6.8; Monocytes # (A) 0.7 k/uL (0-1.0); Monocytes % (A) 6 %; Neutrophils # (A) 9.5 k/uL (1.3-7.7); Neutrophils % (A) 87 %; RBC 2.65 m/uL (4.30-5.90); RDW 13.6 % (11.5-15.5); WBC 10.8 k/uL (3.8-10.6); WBC (Perox) 11.27
[2017-02-19] MEDS: INSULIN LISPRO (humaLOG) 300 UNIT/3 ML VIAL SQ SCH ×4 (06:52→20:03)
[2017-02-19 06:53] LABS: Anion Gap 8 mmol/L; Blood Urea Nitrogen 28 mg/dL (9-20); Calcium 8.4 mg/dL (8.4-10.2); Carbon Dioxide 25 mmol/L (22-30); Chloride 101 mmol/L (98-107); Glucose 117 mg/dL (74-99); Non-African American GFR(MDRD) >60 (>60 ml/min/1.73 sqM); Potassium 4.5 mmol/L (3.5-5.1); Sodium 134 mmol/L (137-145)
[2017-02-19] MEDS: PANTOPRAZOLE 40 MG TABLET PO SCH (06:53)
[2017-02-19 06:58] LABS: Glucose,Whole Blood 120 mg/dL (75-99)
--- NOTE | 2017-02-19 07:48 | XR ---
EXAMINATION TYPE: XR chest 2V DATE OF EXAM: 02/19/2017 7:23 AM COMPARISON: Chest x-ray from yesterday. HISTORY: Pneumothorax progress study. TECHNIQUE: Frontal and lateral views of the chest are obtained. FINDINGS: There is persistent moderate right-sided pneumothorax felt continued increased in size as is more prominent laterally versus prior. There is persistent right-sided pleural fluid component als o more prominent. There is increasing right basilar opacity consistent with worsening atelectasis and /or infiltrate. There is persistent patchy left basilar atelectasis and/or infiltrate. No mediastinal shift is seen. Cardiac silhouette size is stable and within normal limits without reflect thoracic a leobardo. Slight S-shaped scoliosis is present. Multiple right-sided rib fractures redemonstrated. IMPRESSION: Right-sided hydropneumothorax continued to increase in size estimated approximately 35%. Worsening right basilar atelectasis and/or infiltrate is noted. A Yellow message has been communicated to Linda Ramirez via the [facility] Result system on 02/19/2017 7:45 AM, Message ID [id number].
--- NOTE | 2017-02-19 08:21 | P.PN ---
Subjective Principal diagnosis: Pneumothorax continuing care This is a continue present 81-year-old white male essentially admitted status post fall with multiple fractures and pneumothorax. Chest x-ray shows increasing size of 35% volume. Question need to reinsert chest tube today. Appreciate surgery with thoracic/cardiac arrest with surgery consult. Objective - Vital Signs Vital signs: Vital Signs Temp 98.4 F 02/19/17 04:00 Pulse 73 02/19/17 04:00 Resp 20 02/19/17 04:00 BP 179/77 02/19/17 04:00 Pulse Ox 97 02/19/17 04:00 Intake & Output 02/18/17 02/19/17 02/19/17 18:59 06:59 18:59 Intake Total 287 Output Total 451 325 Balance -164 -325 Weight 58 kg 55.9 kg Intake: Intake, IV Titration 50 Amount Ampicillin-Sulbactam 1.5 50 gm In Sodium Chloride 0.9 % 50 ml @ 100 mls/hr IVPB Q8HR [facility] Rx#:[id number] Oral 237 Output: Urine 450 325 Stool 1 Other: Voiding Method Urinal # Voids 1 - Constitutional General appearance: Present: average body habitus, no acute distress - Respiratory Respiratory: bilateral: rhonchi - Cardiovascular Rhythm: irregularly irregular Heart sounds: normal: S1, S2 - Gastrointestinal General gastrointestinal: Present: soft. Absent: tenderness - Labs CBC & Chem 7: 02/19/17 05:47 02/19/17 05:47 Labs: Abnormal Lab Results - Last 24 Hours (Table) 02/18/17 02/18/17 02/19/17 Range/Units 16:31 20:45 05:47 WBC 10.8 H (3.8-10.6) k/uL RBC 2.65 L (4.30-5.90) m/uL Hgb 8.2 L (13.0-17.5) gm/dL Hct 26.3 L (39.0-53.0) % Neutrophils # 9.5 H (1.3-7.7) k/uL Lymphocytes # 0.6 L (1.0-4.8) k/uL Sodium (137-145) mmol/L BUN (9-20) mg/dL Glucose (74-99) mg/dL POC Glucose (mg/dL) 108 H 128 H (75-99) mg/dL 02/19/17 02/19/17 Range/Units 05:47 06:49 WBC (3.8-10.6) k/uL RBC (4.30-5.90) m/uL Hgb (13.0-17.5) gm/dL Hct (39.0-53.0) % Neutrophils # (1.3-7.7) k/uL Lymphocytes # (1.0-4.8) k/uL Sodium 134 L (137-145) mmol/L BUN 28 H (9-20) mg/dL Glucose 117 H (74-99) mg/dL POC Glucose (mg/dL) 120 H (75-99) mg/dL Assessment and Plan (1) Pneumothorax Status: Acute (2) Rib fracture Status: Acute (3) Opiate dependence Status: Acute (4) COPD (chronic obstructive pulmonary disease) Status: Acute (5) DJD (degenerative joint disease) Status: Acute Plan: Continue to follow. Again, question need for chest tube insertion. Time with Patient: Less than 30
[2017-02-19] MEDS ORDERED: LIDOCAINE 2% INJ 20 MG/ML (20 ML MDV) ONE (08:39)
[2017-02-19] MEDS: IPRATROPIUM-ALBUTEROL 3 ML NEB INHALATION SCH ×4 (08:45→19:18)
[2017-02-19] MEDS: BUDESONIDE 0.5 MG/2 ML NEBU INHALATION SCH ×2 (08:45→19:18)
--- NOTE | 2017-02-19 09:44 | XR ---
EXAMINATION TYPE: XR chest 1V portable DATE OF EXAM: 02/19/2017 9:37 AM CLINICAL HISTORY: Post Thora vent chest tube placement. TECHNIQUE: Single AP portable upright view of the chest is obtained. COMPARISON: Chest x-ray from earlier today FINDINGS: There is interval placement of small caliber chest tube projecting towards right apex with reexpansion of right lung. There is persistent right basilar opacity felt to reflect small to modera te-sized right pleural fluid collection and associated right basilar atelectasis and/or infiltrate. F ryao chest with multiple rib fractures mid lung level and at least 2 points is redemonstrated. Left l chelsie is clear. Cardiac silhouette size is difficult to assess is silhouetting of right heart border re indira present. No mediastinal shift is clearly seen. There is atherosclerotic change in aortic knob. There is anterior fusion plate in the lower cervical spine. IMPRESSION: Interval placement of small caliber chest tube with reexpansion of right lung, no sizable pneumothorax is evident. There is persistent small to moderate-sized right pleural effusion or fluid collection, possible hemothorax with associated right basilar atelectasis and/or infiltrate and mult iple right-sided rib fractures all redemonstrated.
[2017-02-19] MEDS: methylPREDNISolone SOD SUCCI 40 MG/ML 1 ML VIAL IV SCH ×2 (10:03→20:36)
[2017-02-19] MEDS: LISINOPRIL 5 MG TAB PO SCH ×2 (10:04→20:36)
[2017-02-19] MEDS: oxyCODONE-APAP 5-325MG 1 EACH TAB PO PRN (10:06)
[2017-02-19] MEDS: METOPROLOL TARTRATE 50 MG TAB PO SCH ×2 (10:06→20:36)
[2017-02-19] MEDS: LIDOCAINE 5% PATCH TOPICAL SCH (10:08)
[2017-02-19 12:10] LABS: Glucose,Whole Blood 107 mg/dL (75-99)
--- NOTE | 2017-02-19 13:17 | P.PN ---
Progress Note - Text The patient is resting comfortably in his bed. He had a thoracotomy then placed earlier this morning. His chest x-ray shows resolution of his pneumothorax. On exam his vital signs are stable. His right chest wall is tender. His abdomen is soft nontender. Full chest with right-sided pneumothorax. The pneumothorax appears to resolve with the thoracentesis system. Patient will be monitored by cardiothoracic surgery service.
--- NOTE | 2017-02-19 15:54 | P.PN ---
Subjective Principal diagnosis: Right hydropneumothorax, status post right sided rib fractures, status post right pleural chest tube removal at [facility]. Placement of right pleural thoravent this morning secondary to increasing pneumothorax Patient currently sitting up in bed in no apparent distress. States he feels no significant shortness of breath. Objective - Vital Signs Vital signs: Vital Signs Temp 98.4 F 02/19/17 04:00 Pulse 72 02/19/17 12:00 Resp 16 02/19/17 12:00 BP 153/70 02/19/17 12:00 Pulse Ox 100 02/19/17 12:00 Intake & Output 02/18/17 02/19/17 02/19/17 18:59 06:59 18:59 Intake Total 287 180 Output Total 451 525 2 Balance -164 -345 -2 Weight 58 kg 55.9 kg 55.9 kg Intake: Intake, IV Titration 50 Amount Ampicillin-Sulbactam 1.5 50 gm In Sodium Chloride 0.9 % 50 ml @ 100 mls/hr IVPB Q8HR [facility] Rx#:[id number] Oral 237 180 Output: Urine 450 525 Stool 1 2 Other: Voiding Method Urinal Urinal # Voids 1 1 - Constitutional General appearance: Present: cooperative, no acute distress - Respiratory Details: Lungs sounds diminished bilaterally, right greater than left. Respirations even , nonlabored. Currently on 3 L nasal cannula with oxygen saturation 97%. Did have right pleural thoravent placed today with [facility] connected to -20 cm continuous wall suction. - Cardiovascular Details: S1, S2 present. Regular rate and rhythm, normal sinus rhythm on telemetry. - Gastrointestinal Gastrointestinal Comment(s): Abdomen soft, nontender, nondistended. Active bowel sounds 4 quadrants. Tolerating diet. - Genitourinary Genitourinary Comment(s): Continues to void clear, yellow urine. - Musculoskeletal Musculoskeletal: Present: generalized weakness - Psychiatric Psychiatric: Present: A&O x's 3, appropriate affect, intact judgment & insight - Allied health notes Allied health notes reviewed: nursing - Labs CBC & Chem 7: 02/19/17 05:47 02/19/17 05:47 Labs: Abnormal Lab Results - Last 24 Hours (Table) 02/18/17 02/18/17 02/19/17 Range/Units 16:31 20:45 05:47 WBC 10.8 H (3.8-10.6) k/uL RBC 2.65 L (4.30-5.90) m/uL Hgb 8.2 L (13.0-17.5) gm/dL Hct 26.3 L (39.0-53.0) % Neutrophils # 9.5 H (1.3-7.7) k/uL Lymphocytes # 0.6 L (1.0-4.8) k/uL Sodium (137-145) mmol/L BUN (9-20) mg/dL Glucose (74-99) mg/dL POC Glucose (mg/dL) 108 H 128 H (75-99) mg/dL 02/19/17 02/19/17 02/19/17 Range/Units 05:47 06:49 11:41 WBC (3.8-10.6) k/uL RBC (4.30-5.90) m/uL Hgb (13.0-17.5) gm/dL Hct (39.0-53.0) % Neutrophils # (1.3-7.7) k/uL Lymphocytes # (1.0-4.8) k/uL Sodium 134 L (137-145) mmol/L BUN 28 H (9-20) mg/dL Glucose 117 H (74-99) mg/dL POC Glucose (mg/dL) 120 H 107 H (75-99) mg/dL - Imaging and Cardiology Chest x-ray: report reviewed, image reviewed Assessment and Plan (1) Pneumothorax, right Status: Acute (2) Tobacco dependence Status: Acute (3) Rib fracture Status: Acute Plan: 1. Sequential chest x-rays reviewed. Increasing pneumothorax. Right pleural pleura vent placed this morning. Repeat chest x-ray in the morning. If significant drainage continues, will consult interventional radiology for thoracentesis. 2. Encourage incentive spirometry use. 3. Encourage smoking cessation. 4. Increase activity, but to chair. 5. GI for/DVT prophylaxis. 6. Antibiotic/steroid management per pulmonology. 7. Comorbid medical conditions to be treated per primary service. 8. More recommendations as patient progresses. Time with Patient: Greater than 30
[2017-02-19 17:13] LABS: Glucose,Whole Blood 75 mg/dL (75-99)
[2017-02-19 19:25] LABS: Glucose,Whole Blood 96 mg/dL (75-99)
--- NOTE | 2017-02-19 19:36 | PN ---
DATE OF SERVICE: 02/19/2017 Patient is an 81-year-old male who is seen sitting up in bed. Patient is awake and alert. Thoracic Surgery did put a chest tube back in this morning for recurring right pneumothorax. Patient is still complaining of problems with pain to that rib area. He is not short of breath at rest. Patient is afebrile, hemodynamically stable, in no acute distress. On physical exam, vital signs are temperature 98.4, heart rate 72, respiratory rate 16, blood pressure 153/70. Oxygen saturation is 100% on 5 L oxygen via nasal cannula. HEENT: Head is normocephalic, atraumatic. NECK: Supple. Trachea is midline. LUNGS: Decreased breath sounds HEART: S1, S2 heard. Not tachycardic. ABDOMEN: Soft. Bowel sounds are heard. EXTREMITIES: No edema. NEUROLOGIC: Patient is awake, alert, oriented. LABS: White count is 10.8, hemoglobin 8.2, hematocrit 26.3 with 329,000 platelets. Sodium is 134, potassium 4.5, chloride 101. CO2 is 25. Anion gap is 8. BUN is 28, creatinine 0.99. Glucose is 117. Calcium is 8.4. Chest x-ray done status post chest tube showed interval placement of small-caliber chest tube with re-expansion of right lung. No sizable pneumothorax is evident. There is persistent small- to moderate-sized right pleural effusion or fluid collection, possible hemothorax, with associated right basilar atelectasis and/or infiltrate, and multiple right-sided rib fractures redemonstrated. ASSESSMENT: 1. Status post fall with multiple right-sided rib fractures. 2. Flail chest. 3. Right hydropneumothorax, status post chest tube placement. 4. Acute exacerbation of chronic obstructive pulmonary disease. 5. Acute hypoxic respiratory failure. 6. Aspiration pneumonia, now improving. 7. Elevated right hemidiaphragm. 8. Chronic kidney disease, stage III. 9. Alcoholism. 10. Active tobacco abuse. 11. Anemia. 12. Hyponatremia. PLAN: Continue oxygen to maintain saturations greater than or equal to 90%. Continue current medications, which have been reviewed. Continue pain control. Continue recommendations and chest tube per Thoracic Surgery. Continue bronchodilators and aerosolized steroids with steroid taper. Continue PT and OT. Continue incentive spirometry with pulmonary hygiene. Continue GI and DVT prophylaxis. We will follow patient closely with you, making further changes as necessary.
[2017-02-19] MEDS: ATORVASTATIN 10 MG TAB PO SCH (20:36)
[2017-02-19 21:27] LABS: Glucose,Whole Blood 85 mg/dL (75-99)
[2017-02-20] MEDS: MORPHINE SULFATE 2 MG/ML SYRINGE IVP PRN ×3 (02:25→17:08)
[2017-02-20 06:30] LABS: Glucose,Whole Blood 108 mg/dL (75-99)
[2017-02-20] MEDS: INSULIN LISPRO (humaLOG) 300 UNIT/3 ML VIAL SQ SCH ×4 (06:32→21:21)
[2017-02-20] MEDS: DEXTROSE 5% IN WATER 1,000 ML IV SCH ×2 (06:32→21:47)
[2017-02-20] MEDS: PANTOPRAZOLE 40 MG TABLET PO SCH (06:35)
[2017-02-20] MEDS: IPRATROPIUM-ALBUTEROL 3 ML NEB INHALATION SCH ×4 (07:21→21:11)
[2017-02-20] MEDS: BUDESONIDE 0.5 MG/2 ML NEBU INHALATION SCH ×2 (07:21→21:11)
--- NOTE | 2017-02-20 08:25 | XR ---
EXAMINATION TYPE: XR chest 1V portable DATE OF EXAM: 02/20/2017 7:21 AM Comparison: 02/19/2017 Clinical History: 81-year-old male follow-up pneumothorax Findings: Right heart margin obscured by adjacent pleural parenchymal disease. Right-sided pleural drain is pre sent with the moderate right pleural effusion and adjacent right basilar opacity. Right posterior six th and seventh rib fractures are again demonstrated. There is interval development of a right apical and lateral pneumothorax estimated at 15%. ACDF hardware. Strandy atelectasis at the left base. Subcu taneous emphysema along the right hemithorax. Impression: 1. Right-sided rib fractures with continued moderate right pleural effusion with adjacent atelectasis and/or consolidation. 2. A small right-sided pleural catheter remains in place with interval development of a small right a pical and lateral pneumothorax. Findings called to nurse Mckeon on 6SEL at 8:22 AM.
--- NOTE | 2017-02-20 08:34 | P.PN ---
Subjective Principal diagnosis: Pneumothorax. Rib fractures. This is a continue progress note a 1-year-old white male essentially status post fall resulting in multiple fractures and pneumothorax. X-ray yesterday did show increasing pneumothorax status post chest tube removal. The patient had pleuravent then placed. The patient is otherwise stable. Chest x-ray this morning is pending. Question need for thoracentesis and more invasive procedure secondary to element of COPD, probable blebs are noted Objective - Vital Signs Vital signs: Vital Signs Temp 99.0 F 02/20/17 04:00 Pulse 80 02/20/17 07:36 Resp 18 02/20/17 04:00 BP 182/83 02/20/17 04:00 Pulse Ox 100 02/20/17 04:00 Intake & Output 02/19/17 02/20/17 02/20/17 18:59 06:59 18:59 Intake Total 100 Output Total 568 1325 Balance -568 -1325 100 Weight 55.9 kg 57.2 kg Intake: Oral 100 Output: Chest Tube Drainage 190 Thora-Vent Right Upper 190 Anterior Chest Urine 375 1325 Stool 3 Other: Voiding Method Urinal # Voids 1 1 - Constitutional General appearance: Absent: average body habitus - Respiratory Respiratory: bilateral: diminished - Cardiovascular Heart sounds: normal: S1, S2 - Gastrointestinal General gastrointestinal: Absent: tenderness - Psychiatric Psychiatric: Present: A&O x's 3 - Labs CBC & Chem 7: 02/19/17 05:47 02/19/17 05:47 Labs: Abnormal Lab Results - Last 24 Hours (Table) 02/19/17 02/20/17 Range/Units 11:41 06:28 POC Glucose (mg/dL) 107 H 108 H (75-99) mg/dL Assessment and Plan (1) Pneumothorax Status: Acute (2) Rib fracture Status: Acute (3) Opiate dependence Status: Acute (4) COPD (chronic obstructive pulmonary disease) Status: Acute (5) DJD (degenerative joint disease) Status: Acute Plan: Worsening pneumothorax. COPD. Await hopeful improvement with replacement tube. Appreciate thoracic input. See orders otherwise Time with Patient: Less than 30
[2017-02-20] MEDS: LISINOPRIL 5 MG TAB PO SCH (09:00)
[2017-02-20] MEDS: methylPREDNISolone SOD SUCCI 40 MG/ML 1 ML VIAL IV SCH (09:00)
[2017-02-20] MEDS: HEPARIN SODIUM,PORCINE 5,000 UNIT/ML 1 ML VIAL SQ SCH ×2 (09:00→20:15)
[2017-02-20] MEDS: LIDOCAINE 5% PATCH TOPICAL SCH (09:00)
[2017-02-20] MEDS: METOPROLOL TARTRATE 50 MG TAB PO SCH ×2 (09:00→21:20)
[2017-02-20 11:24] LABS: Basophils % (A) 0 %; CH 31.5; CHCM 31.6; Eosinophils % (A) 0 %; HCT 23.2 % (39.0-53.0); HGB 7.2 gm/dL (13.0-17.5); Luc # (Auto) 0.14; Luc % (Auto) 2; Lymphocytes # (A) 0.4 k/uL (1.0-4.8); Lymphocytes % (A) 4 %; MCH 31.2 pg (25.0-35.0); MCHC 31.1 g/dL (31.0-37.0); MCV 100.1 fL (80.0-100.0); Mean Platelet Volume 6.7; Monocytes # (A) 0.4 k/uL (0-1.0); Monocytes % (A) 4 %; Neutrophils # (A) 8.5 k/uL (1.3-7.7); Neutrophils % (A) 91 %; RBC 2.32 m/uL (4.30-5.90); RDW 13.8 % (11.5-15.5); WBC 9.4 k/uL (3.8-10.6); WBC (Perox) 10.04
[2017-02-20 11:35] LABS: Glucose,Whole Blood 163 mg/dL (75-99)
[2017-02-20 11:41] LABS: INR 1.1 (<1.1); Prothrombin Time 10.8 sec (9.0-12.0)
[2017-02-20 11:42] LABS: Anion Gap 5 mmol/L; Blood Urea Nitrogen 26 mg/dL (9-20); Carbon Dioxide 30 mmol/L (22-30); Chloride 100 mmol/L (98-107); Glucose 198 mg/dL (74-99); Non-African American GFR(MDRD) >60 (>60 ml/min/1.73 sqM); Potassium 3.9 mmol/L (3.5-5.1); Sodium 135 mmol/L (137-145)
[2017-02-20] MEDS: AMPICILLIN-SULBACTAM 1.5 GM in SODIUM CHLORIDE 0.9% 50 ML IVPB SCH (12:35)
--- NOTE | 2017-02-20 13:41 | P.PN ---
Subjective Principal diagnosis: Pneumothorax Patient seen and examined. Patient states his breathing is better today. He is feeling good overall. He is still having pain. He is sitting in bed eating lunch. Objective - Vital Signs Vital signs: Vital Signs Temp 99.0 F 02/20/17 04:00 Pulse 76 02/20/17 12:20 Resp 18 02/20/17 04:00 BP 182/83 02/20/17 04:00 Pulse Ox 100 02/20/17 04:00 Intake & Output 02/19/17 02/20/17 02/20/17 18:59 06:59 18:59 Intake Total 300 Output Total 568 1325 325 Balance -568 -1325 -25 Weight 55.9 kg 57.2 kg Intake: Oral 300 Output: Chest Tube Drainage 190 Thora-Vent Right Upper 190 Anterior Chest Urine 375 1325 325 Stool 3 Other: Voiding Method Urinal # Voids 1 1 - Exam Gen.: Patient is alert and oriented 3, no acute distress Cardiovascular: Regular rate and rhythm, S1/S2 Lungs: Coarse breath sounds bilaterally, right thoravent in place Abdomen: Soft nontender nondistended positive bowel sounds Extremities: No edema - Labs CBC & Chem 7: 02/20/17 11:08 02/20/17 11:08 Labs: Abnormal Lab Results - Last 24 Hours (Table) 02/20/17 02/20/17 02/20/17 Range/Units 06:28 11:08 11:08 RBC 2.32 L (4.30-5.90) m/uL Hgb 7.2 L (13.0-17.5) gm/dL Hct 23.2 L (39.0-53.0) % MCV 100.1 H (80.0-100.0) fL Neutrophils # 8.5 H (1.3-7.7) k/uL Lymphocytes # 0.4 L (1.0-4.8) k/uL Sodium 135 L (137-145) mmol/L BUN 26 H (9-20) mg/dL Glucose 198 H (74-99) mg/dL POC Glucose (mg/dL) 108 H (75-99) mg/dL Calcium 8.0 L (8.4-10.2) mg/dL 02/20/17 Range/Units 11:33 RBC (4.30-5.90) m/uL Hgb (13.0-17.5) gm/dL Hct (39.0-53.0) % MCV (80.0-100.0) fL Neutrophils # (1.3-7.7) k/uL Lymphocytes # (1.0-4.8) k/uL Sodium (137-145) mmol/L BUN (9-20) mg/dL Glucose (74-99) mg/dL POC Glucose (mg/dL) 163 H (75-99) mg/dL Calcium (8.4-10.2) mg/dL Assessment and Plan Plan: Status post fall with multiple right-sided rib fractures Flail chest Right [place]-pneumothorax Acute exacerbation of COPD Acute hypoxic respiratory failure Aspiration pneumonia, now improving Elevated right hemidiaphragm Chronic kidney disease stage III Alcoholism Active tobacco abuse Anemia Hyponatremia O2 to maintain saturation greater than or equal to 90% Pain control Thoravent per thoracic surgery Pulmicort Steroid taper Duo nebs PT and OT Incentive spirometry and pulmonary hygiene GI and DVT prophylaxis
[2017-02-20 16:36] LABS: Glucose,Whole Blood 114 mg/dL (75-99)
[2017-02-20] MEDS: amLODIPine 5 MG TAB PO SCH (16:43)
--- NOTE | 2017-02-20 16:52 | P.PN ---
<Ernie Dorado L - Last Filed: 02/20/17 16:30> Progress Note - Text CV Surgery Nursing Principal diagnosis: Right hydropneumothorax, status post right sided rib fractures, status post right pleural chest tube removal at [facility]. S/P day #1 Placement of right pleural thoravent, secondary to increasing pneumothorax. Patient awake and alert, no distress noted, no specific complaints. Positive subcutaneous emphysema to his right chest Vital Signs: Afebrile Vital Signs - 24 hr 02/19/17 02/20/17 02/20/17 20:00 00:00 04:00 Temperature 99.5 F 99.0 F Pulse Rate Pulse Rate [ 84 69 71 Pulse Oximetery ] Respiratory 18 20 18 Rate Blood Pressure 182/86 182/83 [Left Arm] Blood Pressure 190/90 [Right Arm] O2 Sat by Pulse 93 L 98 100 Oximetry 02/20/17 02/20/17 02/20/17 07:21 07:36 08:00 Temperature Pulse Rate 72 80 Pulse Rate [ 68 Pulse Oximetery ] Respiratory 18 Rate Blood Pressure 136/89 [Left Arm] Blood Pressure [Right Arm] O2 Sat by Pulse 92 L Oximetry 02/20/17 02/20/17 02/20/17 12:00 12:13 12:20 Temperature Pulse Rate 76 76 Pulse Rate [ 56 L Pulse Oximetery ] Respiratory 18 Rate Blood Pressure 198/86 [Left Arm] Blood Pressure [Right Arm] O2 Sat by Pulse 85 L Oximetry 02/20/17 02/20/17 15:10 15:24 Temperature Pulse Rate 72 72 Pulse Rate [ Pulse Oximetery ] Respiratory 16 Rate Blood Pressure [Left Arm] Blood Pressure [Right Arm] O2 Sat by Pulse Oximetry Labs: Short CBC 02/20/17 Range/Units 11:08 WBC 9.4 (3.8-10.6) k/uL Hgb 7.2 L (13.0-17.5) gm/dL Hct 23.2 L (39.0-53.0) % Plt Count 279 (150-450) k/uL Neutrophils # 8.5 H (1.3-7.7) k/uL BMP 02/20/17 11:08 Sodium 135 L Potassium 3.9 Chloride 100 Carbon Dioxide 30 BUN 26 H Creatinine 1.08 Glucose 198 H Calcium 8.0 L PT/INR, D-dimer PT 10.8 sec (9.0-12.0) 02/20/17 11:08 INR 1.1 (<1.1) 02/20/17 11:08 IV Fluids: D5W at 75 mL per hour. Lungs: Scattered rhonchi throughout, diminished right lower lobe. Respirations are symmetrical and unlabored. Positive subcutaneous emphysema to his right chest. O2 sat: 94% on 4 L nasal cannula. I/S: 750 mL, reviewed with the patient important of using his incentive spirometry every hour while awake. The patient did give a good return demonstration on his incentive spirometry. Heart: S1S2, regular rhythm and rate, negative for S3, gallop or murmur. Remote telemetry showing normal sinus rhythm at 73. Abdomen: Soft, Positive bowel sounds present in all 4 quadrants, CBGs: 85-163 g/dL in the last 24 hours U/O: Adequate. 1325 mL output in the last hours. Chest tubes: Right anterior chest Thoravent intact, intermittent air leak. Draining serosanguineous drainage. 480 mL output in the last 24 hours. 24 hr Total: Intake & Output 02/18/17 02/19/17 02/20/17 02/21/17 06:59 06:59 06:59 06:59 Intake Total 200 467 300 Output Total 0385 194 2386 326 Balance -950 -509 -1893 -26 Weight 58 kg 55.9 kg 57.2 kg Active Medications Albuterol/Ipratropium (Duoneb 0.5 Mg-3 Mg/3 Ml Soln) 3 ml INHALATION RT-QID PRN PRN Reason: Shortness Of Breath Or Wheezing Albuterol/Ipratropium (Duoneb 0.5 Mg-3 Mg/3 Ml Soln) 3 ml INHALATION RT-QID [facility] Last Admin: 02/20/17 15:10 Dose: 3 ml Amlodipine Besylate (Norvasc) 5 mg PO DAILY [facility] Atorvastatin Calcium (Lipitor) 10 mg PO HS [facility] Last Admin: 02/19/17 20:36 Dose: 10 mg Budesonide (Pulmicort) 0.5 mg INHALATION RT-BID [facility] Last Admin: 02/20/17 07:21 Dose: 0.5 mg Heparin Sodium (Porcine) (Heparin) 5,000 unit SQ Q8HR [facility] Last Admin: 02/20/17 09:00 Dose: 5,000 unit Ampicillin Sodium/Sulbactam (Sodium 1.5 gm/ Sodium Chloride) 50 mls @ 100 mls/ hr IVPB Q8HR [facility] Last Admin: 02/20/17 12:35 Dose: 100 mls/hr Dextrose/Water (Dextrose 5%-Water Iv Soln) 1,000 mls @ 75 mls/hr IV .[id number] [facility] Last Admin: 02/20/17 06:32 Dose: Not Given Insulin Human Lispro (Humalog) 0 unit SQ ACHS [facility] PRN Reason: Protocol Last Admin: 02/20/17 12:54 Dose: 3 unit Lidocaine (Lidoderm) 1 patch TOPICAL DAILY [facility] Last Admin: 02/20/17 09:00 Dose: 1 patch Lisinopril (Zestril) 10 mg PO BID [facility] Metoprolol Tartrate (Lopressor) 50 mg PO BID [facility] Last Admin: 02/20/17 09:00 Dose: 50 mg Morphine Sulfate (Morphine Sulfate (Inj)) 2 mg IVP Q2H PRN PRN Reason: Pain Last Admin: 02/20/17 12:46 Dose: 2 mg Oxycodone/Acetaminophen (Percocet 5-325) 1 each PO Q4HR PRN PRN Reason: Pain Last Admin: 02/19/17 10:06 Dose: 1 each Pantoprazole Sodium (Protonix) 40 mg PO AC-BRKFST [facility] Last Admin: 02/20/17 06:35 Dose: 40 mg Prednisone () 60 mg PO DAILY [facility] Plan: 1. Right pleural Thoravent draining serosanguineous drainage. Thoravent to Pleur-evac and low continuous suction. This a.m.'s x-ray demonstrates 15% right pneumothorax and a moderate right pleural effusion. Interventional radiology will be consult for a right thoracentesis. 2. Encourage incentive spirometry use. 3. His heparin subcutaneous will be placed on hold at this time and he will be transfused for 1 unit of packed red blood cells for hemoglobin of 7.2. 4. Increase activity as tolerated with assistance. 5. GI for/DVT prophylaxis. 6. Antibiotic/steroid management per pulmonology. 7. Comorbid medical conditions to be treated per primary service. 8. More recommendations as patient progresses. <Des Lange - Last Filed: 02/20/17 16:57> Progress Note - Text The patient was seen and examined. I agree with the above assessment and plan. His thoravent continues to drain bloody fluid. His hemoglobin this afternoon was 7.2. We will transfuse 1 unit of blood. We will see if interventional radiology can Ultrasound his right chest and place a drain if appropriate.
--- NOTE | 2017-02-20 17:21 | US ---
EXAMINATION TYPE: US CHEST DATE OF EXAM: 02/20/2017 5:02 PM COMPARISON: X-ray February 20, 2017 CLINICAL HISTORY: right pneumothorax/pleural effusion with markings . EXAM MEASUREMENTS: Right Pleural Effusion fluid pocket: 2.8 cm free fluid area Right skin to fluid thickness: 2.8 cm Left Pleural Effusion fluid pocket: no pleural effusion is seen Right chest was not marked as complex fluid area seen by US with small free fluid area measured both superior and inferior posterior chest. Pulmonologists are able to review the images in the patient?s EMR. IMPRESSION: RIGHT PLEURAL EFFUSION.
[2017-02-20 21:00] LABS: Glucose,Whole Blood 136 mg/dL (75-99)
[2017-02-20] MEDS: LISINOPRIL 10 MG TAB PO SCH (21:20)
[2017-02-20] MEDS: ATORVASTATIN 10 MG TAB PO SCH (21:20)
[2017-02-20] MEDS: oxyCODONE-APAP 5-325MG 1 EACH TAB PO PRN (21:54)
[2017-02-21] MEDS: AMPICILLIN-SULBACTAM 1.5 GM in SODIUM CHLORIDE 0.9% 50 ML IVPB SCH ×4 (01:36→23:08)
[2017-02-21] MEDS: oxyCODONE-APAP 5-325MG 1 EACH TAB PO PRN ×4 (03:12→20:05)
[2017-02-21 06:09] LABS: Glucose,Whole Blood 77 mg/dL (75-99)
[2017-02-21] MEDS: DEXTROSE 5% IN WATER 1,000 ML IV SCH ×2 (06:26→20:53)
[2017-02-21] MEDS: PANTOPRAZOLE 40 MG TABLET PO SCH (06:27)
[2017-02-21] MEDS: INSULIN LISPRO (humaLOG) 300 UNIT/3 ML VIAL SQ SCH ×4 (06:27→21:12)
[2017-02-21 06:31] LABS: Anion Gap 5 mmol/L; Blood Urea Nitrogen 25 mg/dL (9-20); Calcium 8.7 mg/dL (8.4-10.2); Carbon Dioxide 30 mmol/L (22-30); Chloride 101 mmol/L (98-107); Glucose 89 mg/dL (74-99); Magnesium 1.7 mg/dL (1.6-2.3); Non-African American GFR(MDRD) >60 (>60 ml/min/1.73 sqM); Potassium 3.9 mmol/L (3.5-5.1); Sodium 136 mmol/L (137-145)
[2017-02-21 07:17] LABS: Basophils % (A) 0 %; CH 31.7; CHCM 32.7; Eosinophils # (A) 0.1 k/uL (0-0.7); Eosinophils % (A) 1 %; HCT 28.2 % (39.0-53.0); HDW 3.04; Luc # (Auto) 0.16; Luc % (Auto) 2; Lymphocytes # (A) 1.4 k/uL (1.0-4.8); Lymphocytes % (A) 13 %; MCH 32.2 pg (25.0-35.0); MCV 97.6 fL (80.0-100.0); Mean Platelet Volume 6.7; Monocytes # (A) 0.7 k/uL (0-1.0); Monocytes % (A) 6 %; Neutrophils # (A) 8.1 k/uL (1.3-7.7); Neutrophils % (A) 78 %; RBC 2.89 m/uL (4.30-5.90); RDW 14.8 % (11.5-15.5); WBC 10.4 k/uL (3.8-10.6); WBC (Perox) 10.22
[2017-02-21 07:19] LABS: HGB 9.3 gm/dL (13.0-17.5)
--- NOTE | 2017-02-21 07:47 | XR ---
EXAMINATION TYPE: XR chest 1V portable DATE OF EXAM: 02/21/2017 7:32 AM HISTORY: Shortness of breath. COMPARISON: 03/19/2017 TECHNIQUE: Single view of the chest is submitted. FINDINGS: Right basilar pleural catheter is in place. There is been reexpansion of the right lung with improvem ent in previously noted pneumothorax. Suspect tiny right apical component. There is continued subcuta neous emphysema along the right chest wall. The left lung is clear. Right-sided rib fractures again s een. Elevation right hemidiaphragm. Demonstrated are scattered senescent parenchymal change. The heart is stable. Hilar and mediastinal structures are within normal limits. Degenerative changes are seen of the dorsal spine. IMPRESSION: 1. There is been reexpansion of the right lung with improvement in previously noted pneumothorax. [place] spect tiny right apical component.
--- NOTE | 2017-02-21 08:08 | P.PN ---
Subjective Principal diagnosis: Pneumothorax. Rib fractures. This is a continue progress note an 81-year-old white male essentially admitted for rib fracture and recurrent pneumothorax. Interventional radiology has been consulted for thoracentesis. Appreciate pulmonology and thoracic vascular input. He sitting comfortably oriented mental pain is noted. Objective - Vital Signs Vital signs: Vital Signs Temp 98.6 F 02/21/17 03:44 Pulse 59 L 02/21/17 03:44 Resp 16 02/21/17 03:44 BP 154/75 02/21/17 03:44 Pulse Ox 94 L 02/21/17 03:44 Intake & Output 02/20/17 02/21/17 02/21/17 18:59 06:59 18:59 Intake Total 360 1710 Output Total 817 880 Balance -457 830 Weight 56.2 kg Intake: IV 1400 0.9% NS @ 75 mL/hr 1200 Ampicillin-Sulbactam 1.5 200 gm In Sodium Chloride 0.9 % 50 ml @ 100 mls/hr IVPB Q8HR [facility] Rx#:[id number] Oral 360 Blood Product 310 Rc As-3 Unit 310 [id number] Output: Chest Tube Drainage 490 130 Thora-Vent Right Upper 490 130 Anterior Chest Urine 325 750 Stool 2 Other: Voiding Method Urinal Urinal - Constitutional General appearance: Present: thin - EENT Eyes: Absent: abnormal pupil - Respiratory Respiratory: bilateral: rhonchi - Cardiovascular Rhythm: irregularly irregular Heart sounds: normal: S1, S2 - Gastrointestinal General gastrointestinal: Present: soft. Absent: tenderness - Labs CBC & Chem 7: 02/21/17 05:22 02/21/17 05:22 Labs: Abnormal Lab Results - Last 24 Hours (Table) 02/20/17 02/20/17 02/20/17 Range/Units 11:08 11:08 11:33 RBC 2.32 L (4.30-5.90) m/uL Hgb 7.2 L (13.0-17.5) gm/dL Hct 23.2 L (39.0-53.0) % MCV 100.1 H (80.0-100.0) fL Neutrophils # 8.5 H (1.3-7.7) k/uL Lymphocytes # 0.4 L (1.0-4.8) k/uL Sodium 135 L (137-145) mmol/L BUN 26 H (9-20) mg/dL Glucose 198 H (74-99) mg/dL POC Glucose (mg/dL) 163 H (75-99) mg/dL Calcium 8.0 L (8.4-10.2) mg/dL Crossmatch 02/20/17 02/20/17 02/20/17 Range/Units 16:33 16:53 20:59 RBC (4.30-5.90) m/uL Hgb (13.0-17.5) gm/dL Hct (39.0-53.0) % MCV (80.0-100.0) fL Neutrophils # (1.3-7.7) k/uL Lymphocytes # (1.0-4.8) k/uL Sodium (137-145) mmol/L BUN (9-20) mg/dL Glucose (74-99) mg/dL POC Glucose (mg/dL) 114 H 136 H (75-99) mg/dL Calcium (8.4-10.2) mg/dL Crossmatch See Detail 02/21/17 02/21/17 Range/Units 05:22 05:22 RBC 2.89 L (4.30-5.90) m/uL Hgb 9.3 L D (13.0-17.5) gm/dL Hct 28.2 L (39.0-53.0) % MCV (80.0-100.0) fL Neutrophils # 8.1 H (1.3-7.7) k/uL Lymphocytes # (1.0-4.8) k/uL Sodium 136 L (137-145) mmol/L BUN 25 H (9-20) mg/dL Glucose (74-99) mg/dL POC Glucose (mg/dL) (75-99) mg/dL Calcium (8.4-10.2) mg/dL Crossmatch Assessment and Plan (1) Pneumothorax Status: Acute (2) Rib fracture Status: Acute (3) Opiate dependence Status: Acute (4) COPD (chronic obstructive pulmonary disease) Status: Acute (5) DJD (degenerative joint disease) Status: Acute Plan: Await radiology input. Continue current treatment otherwise. We'll continue to follow with consultants. Check CBC and CMP in a.m. Time with Patient: Less than 30
[2017-02-21] MEDS: IPRATROPIUM-ALBUTEROL 3 ML NEB INHALATION SCH ×4 (08:36→19:38)
[2017-02-21] MEDS: BUDESONIDE 0.5 MG/2 ML NEBU INHALATION SCH ×2 (08:36→19:38)
[2017-02-21] MEDS: LISINOPRIL 10 MG TAB PO SCH ×2 (09:47→20:05)
[2017-02-21] MEDS: METOPROLOL TARTRATE 50 MG TAB PO SCH ×2 (09:47→20:05)
[2017-02-21] MEDS: amLODIPine 5 MG TAB PO SCH (09:47)
[2017-02-21] MEDS: predniSONE 20 MG TAB PO SCH (09:47)
[2017-02-21] MEDS: LIDOCAINE 5% PATCH TOPICAL SCH (09:47)
--- NOTE | 2017-02-21 10:06 | P.PN ---
Progress Note - Text CV Surgery Nursing Principal diagnosis: Right hydropneumothorax, status post right sided rib fractures, status post right pleural chest tube removal at [facility]. S/P day #2 Placement of right pleural thoravent, secondary to increasing pneumothorax. Patient awake and alert, no distress noted, no specific complaints. Positive subcutaneous emphysema to his right chest. The patient is oriented [address] Reoriented patient to time. Vital Signs: Afebrile Vital Signs - 24 hr 02/20/17 02/20/17 02/20/17 12:00 12:13 12:20 Temperature Pulse Rate 76 76 Pulse Rate [ 56 L Pulse Oximetery ] Respiratory 18 Rate Blood Pressure Blood Pressure 198/86 [Left Arm] O2 Sat by Pulse 85 L Oximetry 02/20/17 02/20/17 02/20/17 15:10 15:24 16:00 Temperature Pulse Rate 72 72 Pulse Rate [ 80 Pulse Oximetery ] Respiratory 16 16 Rate Blood Pressure Blood Pressure 186/92 [Left Arm] O2 Sat by Pulse 100 Oximetry 02/20/17 02/20/17 02/20/17 20:00 21:12 21:22 Temperature 98.9 F Pulse Rate 80 80 Pulse Rate [ 78 Pulse Oximetery ] Respiratory 16 Rate Blood Pressure Blood Pressure 164/75 [Left Arm] O2 Sat by Pulse 100 Oximetry 02/20/17 02/20/17 02/20/17 21:44 21:54 22:24 Temperature 97.8 F 99 F 98.1 F Pulse Rate 88 90 62 Pulse Rate [ Pulse Oximetery ] Respiratory 16 18 16 Rate Blood Pressure 185/84 153/81 153/76 Blood Pressure [Left Arm] O2 Sat by Pulse 100 100 100 Oximetry 02/21/17 02/21/17 02/21/17 01:26 03:44 08:00 Temperature 97.3 F L 98.6 F 98.0 F Pulse Rate 59 L Pulse Rate [ 59 L 88 Pulse Oximetery ] Respiratory 18 16 20 Rate Blood Pressure 177/71 Blood Pressure 154/75 169/105 [Left Arm] O2 Sat by Pulse 100 94 L 98 Oximetry 02/21/17 02/21/17 08:36 08:46 Temperature Pulse Rate 88 88 Pulse Rate [ Pulse Oximetery ] Respiratory Rate Blood Pressure Blood Pressure [Left Arm] O2 Sat by Pulse Oximetry Labs: Short CBC 02/20/17 02/21/17 Range/Units 11:08 05:22 WBC 9.4 10.4 (3.8-10.6) k/uL Hgb 7.2 L 9.3 L D (13.0-17.5) gm/dL Hct 23.2 L 28.2 L (39.0-53.0) % Plt Count 279 293 (150-450) k/uL Neutrophils # 8.5 H 8.1 H (1.3-7.7) k/uL BMP 02/20/17 02/21/17 11:08 05:22 Sodium 135 L 136 L Potassium 3.9 3.9 Chloride 100 101 Carbon Dioxide 30 30 BUN 26 H 25 H Creatinine 1.08 1.00 Glucose 198 H 89 Calcium 8.0 L 8.7 Lungs: Coarse rhonchi throughout, diminished bilateral bases right greater than left. Respirations are symmetrical and unlabored. Patient has positive subcu emphysema to his right chest. O2 sat: 94% on 4 L nasal cannula. I/S: 750 mL, reviewed with the patient important of using his incentive spirometry every hour while awake. The patient did give a good return demonstration on his incentive spirometry but will need further coaching and encouragement. Heart: S1S2, regular rhythm and rate, negative for S3, gallop or murmur. Remote telemetry showing normal sinus rhythm heart rate 89. Abdomen: Soft, Positive bowel sounds present in all 4 quadrants. CBGs: 77-136 kg/dL in the last 24 hours. U/O: Adequate, 800 mL output in the last 8 hours. Chest Tubes: Right chest Thoravent in place without air leak. Remains to [place] drainage system, draining thin serosanguineous drainage. 190 mL output the last 8 hours, 370 mL output in the last 24 hours. 24 hr Total: Intake & Output 02/19/17 02/20/17 02/21/17 02/22/17 06:59 06:59 06:59 06:59 Intake Total 467 9210 180 Output Total 704 2267 6791 953 Balance -509 -6420 373 -491 Weight 55.9 kg 57.2 kg 56.2 kg Active Medications Albuterol/Ipratropium (Duoneb 0.5 Mg-3 Mg/3 Ml Soln) 3 ml INHALATION RT-QID PRN PRN Reason: Shortness Of Breath Or Wheezing Albuterol/Ipratropium (Duoneb 0.5 Mg-3 Mg/3 Ml Soln) 3 ml INHALATION RT-QID [facility] Last Admin: 02/21/17 08:36 Dose: 3 ml Amlodipine Besylate (Norvasc) 5 mg PO DAILY [facility] Last Admin: 02/21/17 09:47 Dose: 5 mg Atorvastatin Calcium (Lipitor) 10 mg PO HS [facility] Last Admin: 02/20/17 21:20 Dose: 10 mg Budesonide (Pulmicort) 0.5 mg INHALATION RT-BID [facility] Last Admin: 02/21/17 08:36 Dose: 0.5 mg Ampicillin Sodium/Sulbactam (Sodium 1.5 gm/ Sodium Chloride) 50 mls @ 100 mls/ hr IVPB Q8HR [facility] Last Admin: 02/21/17 09:43 Dose: 100 mls/hr Dextrose/Water (Dextrose 5%-Water Iv Soln) 1,000 mls @ 75 mls/hr IV .[id number] [facility] Last Admin: 02/21/17 06:26 Dose: 75 mls/hr Insulin Human Lispro (Humalog) 0 unit SQ ACHS [facility] PRN Reason: Protocol Last Admin: 02/21/17 06:27 Dose: Not Given Lidocaine (Lidoderm) 1 patch TOPICAL DAILY [facility] Last Admin: 02/21/17 09:47 Dose: 1 patch Lisinopril (Zestril) 10 mg PO BID [facility] Last Admin: 02/21/17 09:47 Dose: 10 mg Metoprolol Tartrate (Lopressor) 50 mg PO BID [facility] Last Admin: 02/21/17 09:47 Dose: 50 mg Morphine Sulfate (Morphine Sulfate (Inj)) 2 mg IVP Q2H PRN PRN Reason: Pain Last Admin: 02/20/17 17:08 Dose: 2 mg Oxycodone/Acetaminophen (Percocet 5-325) 1 each PO Q4HR PRN PRN Reason: Pain Last Admin: 02/21/17 03:12 Dose: 1 each Pantoprazole Sodium (Protonix) 40 mg PO AC-BRKFST [facility] Last Admin: 02/21/17 06:27 Dose: 40 mg Prednisone () 60 mg PO DAILY [facility] Last Admin: 02/21/17 09:47 Dose: 60 mg Plan: 1. Right pleural Thoravent draining serosanguineous drainage. Thoravent will remain to Pleur-evac and low continuous suction. 2. Encourage incentive spirometry use every hour while awake. 3. His heparin subcutaneous will be restarted this a.m. 4. Increase activity as tolerated with assistance. 5. GI for/DVT prophylaxis. 6. Antibiotic/steroid management per pulmonology. 7. Comorbid medical conditions to be treated per primary service. 8. CBC, BMP and chest x-ray in a.m. 9. More recommendations as patient progresses.
[2017-02-21] MEDS: MAGNESIUM SULFATE-D5W PMX 1 GM in DEXTROSE/WATER 1 100ML.BAG IVPB SCH ×2 (10:32→11:39)
--- NOTE | 2017-02-21 11:49 | CDI ---
In responding to this query, please exercise your independent professional judgment. The [facility] Coding Staff and Clinical Documentation Specialists appreciate your assistance in clarifying documentation, maintaining compliance with coding guidelines, accurately documenting patients condition and capturing severity of illness. The fact that a question is asked does not imply that any particular answer is desired or expected. Communication forms are a method of clarifying documentation and are not made part of the Legal Health Record. Thank you in advance for your clarification. Last Revision, August 2015 David Becerril [address] [facility] [place] [address] Documentation Clarification Form Date: 02/21/2017 11:39:00 AM From: Nieves Silva RN, CDS Admit Date: 02/16/2017 7:27:00 PM Patient Name: Antony Jacob Visit Number: [id number] Dr. Giuseppe Atkinson, Patient admitted for Right Pneumothorax from fall. Chest tube inserted on 02/19/17 A diagnosis of anemia lacks specificity to accurately reflect your patients severity of condition and clarification is needed. Patient history/risk factors: Clinical Indicators: H/H 7.2/23.2 on 02/20/17, post transfusion o H/H 9.3/28. Anemia documented in Pulmonary note on 02/19/17 Treatment: 1 Unit Packed /red Blood Cells In order to capture the severity of condition, please clarify the type of anemia and etiology if known: Acute blood loss anemia Iron deficiency anemia Anemia of chronic kidney disease Unable to determine Other, please specify Please document in your progress notes and discharge summary in order to capture severity of illness and risk of mortality. Include clinical findings that support your diagnosis. FYI: Press F11 to launch patient chart. Place X here if this finding has no clinical significance, is not applicable or if you are not able to provide any additional documentation. RAJ
[2017-02-21 11:55] LABS: Glucose,Whole Blood 104 mg/dL (75-99)
[2017-02-21] MEDS: HEPARIN SODIUM,PORCINE 5,000 UNIT/ML 1 ML VIAL SQ SCH ×2 (16:24→23:05)
[2017-02-21 17:01] LABS: Glucose,Whole Blood 174 mg/dL (75-99)
--- NOTE | 2017-02-21 17:14 | PN ---
DATE OF SERVICE: 02/21/2017 Patient is an 81-year-old male who is status post chest tube for reccurring pneumothorax after multiple rib fractures. Patient is sitting up in bed. He is awake and alert. Denies any worsening shortness of breath or pain. Patient is afebrile, hemodynamically stable, in no acute distress. On physical exam, vital signs are temperature 98.1, heart rate 76, respiratory rate 16. Blood pressure is on the high side at 179/80. Oxygen saturations are 94% on 4 L oxygen via nasal cannula. HEENT: Head is normocephalic, atraumatic. NECK: Supple. Trachea is midline. LUNGS: Coarse breath sounds on the right, decreased at the right base. Left lung sounds clear. HEART: S1 and S2 are heard, irregular, which may be leading to an irregular blood pressure as well. Recommend they check that manually. ABDOMEN: Soft. Bowel sounds are heard. EXTREMITIES: No edema. NEUROLOGIC: Patient is awake and alert. LABS: White count is 10.4, hemoglobin 9.3, hematocrit 28.2 with 293,000 platelets. Sodium is 136, potassium 3.9, chloride 101. CO2 is 30. Anion gap is 5. BUN is 25, creatinine 1.0. Glucose is 89. Calcium is 8.7. Magnesium is 1.7. Chest x-ray done this a.m. shows re-expansion of the right lung with improvement in previously noted pneumothorax; suspect tiny right apical component. IMPRESSION: 1. Status post fall with multiple right-sided rib fractures. 2. Flail chest. 3. Right hydropneumothorax. 4. Acute exacerbation of chronic obstructive pulmonary disease. 5. Acute hypoxic respiratory failure. 6. Aspiration pneumonia, improving. 7. Elevated right hemidiaphragm. 8. Chronic kidney disease, stage III. 9. Alcoholism. 10. Active tobacco abuse. 11. Anemia. 12. Hyponatremia. PLAN: Continue oxygen to maintain saturations greater than or equal to 90%. Continue with pain control. Continue Thora-Vent per Thoracic Surgery. Continue bronchodilators and aerosolized steroids with steroid taper. Continue incentive spirometry and pulmonary hygiene. Continue GI and DVT prophylaxis. Will follow patient closely with you, making further changes as necessary.
[2017-02-21] MEDS: MORPHINE SULFATE 2 MG/ML SYRINGE IVP PRN (17:50)
[2017-02-21] MEDS: ATORVASTATIN 10 MG TAB PO SCH (20:05)
[2017-02-21 21:07] LABS: Glucose,Whole Blood 133 mg/dL (75-99)
[2017-02-21] MEDS ORDERED: MAGNESIUM HYDROXIDE 2,400 MG/10 ML CUP PO PRN (21:21)
[2017-02-22] MEDS: oxyCODONE-APAP 5-325MG 1 EACH TAB PO PRN ×4 (04:49→18:51)
[2017-02-22] MEDS: INSULIN LISPRO (humaLOG) 300 UNIT/3 ML VIAL SQ SCH ×4 (06:42→21:14)
[2017-02-22] MEDS: PANTOPRAZOLE 40 MG TABLET PO SCH (06:44)
[2017-02-22 06:53] LABS: Glucose,Whole Blood 67 mg/dL (75-99)
[2017-02-22 07:00] LABS: Glucose,Whole Blood 45 mg/dL (75-99)
[2017-02-22 07:25] LABS: CH 31.4; CHCM 32.3; HCT 26.5 % (39.0-53.0); HDW 2.93; HGB 8.4 gm/dL (13.0-17.5); MCH 30.9 pg (25.0-35.0); MCHC 31.6 g/dL (31.0-37.0); MCV 97.9 fL (80.0-100.0); Mean Platelet Volume 6.8; RDW 14.4 % (11.5-15.5); WBC 12.1 k/uL (3.8-10.6)
[2017-02-22 07:32] LABS: ALT 33 U/L (21-72); AST 20 U/L (17-59); Alkaline Phosphatase 46 U/L (38-126); Anion Gap 5 mmol/L; Blood Urea Nitrogen 26 mg/dL (9-20); Calcium 8.1 mg/dL (8.4-10.2); Carbon Dioxide 30 mmol/L (22-30); Chloride 101 mmol/L (98-107); Glucose 95 mg/dL (74-99); Non-African American GFR(MDRD) >60 (>60 ml/min/1.73 sqM); Potassium 4.1 mmol/L (3.5-5.1); Sodium 136 mmol/L (137-145); Total Bilirubin 0.5 mg/dL (0.2-1.3); Total Protein 5.2 g/dL (6.3-8.2)
[2017-02-22 07:38] LABS: Glucose,Whole Blood 94 mg/dL (75-99)
[2017-02-22] MEDS: AMPICILLIN-SULBACTAM 1.5 GM in SODIUM CHLORIDE 0.9% 50 ML IVPB SCH ×3 (07:39→23:13)
[2017-02-22] MEDS: DOCUSATE 100 MG CAP PO SCH (07:43)
[2017-02-22] MEDS: predniSONE 20 MG TAB PO SCH (07:43)
[2017-02-22] MEDS: HEPARIN SODIUM,PORCINE 5,000 UNIT/ML 1 ML VIAL SQ SCH ×3 (07:43→23:13)
[2017-02-22] MEDS: amLODIPine 5 MG TAB PO SCH (07:43)
[2017-02-22] MEDS: LIDOCAINE 5% PATCH TOPICAL SCH (07:43)
[2017-02-22] MEDS: LISINOPRIL 10 MG TAB PO SCH ×2 (07:44→21:12)
[2017-02-22] MEDS: METOPROLOL TARTRATE 50 MG TAB PO SCH ×2 (07:44→21:13)
--- NOTE | 2017-02-22 07:55 | P.PN ---
Subjective Principal diagnosis: This is a continue progress note for continuing care. This is a continue pressure 81-year-old white male with known history of atrial fibrillation and COPD who had status post fall with pneumothorax. Reexpansion long after reinsertion of chest tube has been done. The patient is stabilizing. He states minimal pain. Objective - Vital Signs Vital signs: Vital Signs Temp 99.1 F 02/22/17 04:00 Pulse 62 02/22/17 04:00 Resp 16 02/22/17 04:00 BP 171/74 02/22/17 05:43 Pulse Ox 100 02/22/17 04:00 Intake & Output 02/21/17 02/22/17 02/22/17 18:59 06:59 18:59 Intake Total 1670 1300 Output Total 1523 1170 Balance 147 130 Weight 55.9 kg Intake: IV 950 1300 0.9% NS @ 75 mL/hr 900 1200 Ampicillin-Sulbactam 1.5 50 100 gm In Sodium Chloride 0.9 % 50 ml @ 100 mls/hr IVPB Q8HR [facility] Rx#:[id number] Intake, IV Titration 200 Amount Magnesium Sulfate-D5w Pmx 200 1 gm In Dextrose/Water 1 100ml.bag @ 100 mls/hr IVPB Q1H [facility] Rx#: [id number] Oral 520 Output: Chest Tube Drainage 170 70 Thora-Vent Right Upper 170 70 Anterior Chest Urine 1350 1100 Stool 3 Other: Voiding Method Urinal # Voids 1 2 - Constitutional General appearance: Present: thin - Neck Neck: Absent: lymphadenopathy - Respiratory Respiratory: bilateral: rhonchi - Cardiovascular Rhythm: regular Heart sounds: normal: S1, S2 - Gastrointestinal General gastrointestinal: Present: soft. Absent: tenderness - Neurologic Neurologic: Present: CNII-XII intact - Musculoskeletal Musculoskeletal: Present: generalized weakness - Psychiatric Psychiatric: Present: A&O x's 3 - Labs CBC & Chem 7: 02/21/17 05:22 02/21/17 05:22 Labs: Abnormal Lab Results - Last 24 Hours (Table) 02/21/17 02/21/17 02/21/17 Range/Units 11:46 16:57 21:05 POC Glucose (mg/dL) 104 H 174 H 133 H (75-99) mg/dL 02/22/17 02/22/17 Range/Units 06:33 06:58 POC Glucose (mg/dL) 67 L 45 L (75-99) mg/dL Assessment and Plan (1) Pneumothorax Status: Acute (2) Rib fracture Status: Acute (3) Opiate dependence Status: Acute (4) COPD (chronic obstructive pulmonary disease) Status: Acute (5) DJD (degenerative joint disease) Status: Acute Plan: We'll continue to follow. Hopeful chest tube removal per thoracic vascular surgery. Otherwise we'll continue to follow. Prognosis is guarded secondary to his multiple comorbidities who Dr. Chowdhury's group was covering for the weekend. If his pneumothorax is stabilizing, hopefully we can discharge in next 24-48 hours Time with Patient: Less than 30
[2017-02-22] MEDS ORDERED: BISACODYL 10 MG SUPP RECTAL STA (08:28)
[2017-02-22] MEDS: BUDESONIDE 0.5 MG/2 ML NEBU INHALATION SCH ×2 (08:41→19:43)
[2017-02-22] MEDS: IPRATROPIUM-ALBUTEROL 3 ML NEB INHALATION SCH ×4 (08:42→19:43)
[2017-02-22] MEDS: DEXTROSE 5% IN WATER 1,000 ML IV SCH (10:01)
--- NOTE | 2017-02-22 11:17 | P.PN ---
Subjective Principal diagnosis: Right hydropneumothorax, status post right sided rib fractures, status post right pleural chest tube removal at [facility]. POD #3 placement of right pleural thoravent secondary to increasing pneumothorax Patient currently sitting up in bed in no apparent distress. Denies significant shortness of breath. Objective - Vital Signs Vital signs: Vital Signs Temp 97.8 F 02/22/17 07:52 Pulse 72 02/22/17 08:55 Resp 20 02/22/17 07:53 BP 172/98 02/22/17 07:52 Pulse Ox 95 02/22/17 07:52 Intake & Output 02/21/17 02/22/17 02/22/17 18:59 06:59 18:59 Intake Total 1670 1300 180 Output Total 1523 1170 325 Balance 147 130 -145 Weight 55.9 kg Intake: IV 950 1300 0.9% NS @ 75 mL/hr 900 1200 Ampicillin-Sulbactam 1.5 50 100 gm In Sodium Chloride 0.9 % 50 ml @ 100 mls/hr IVPB Q8HR [facility] Rx#:[id number] Intake, IV Titration 200 Amount Magnesium Sulfate-D5w Pmx 200 1 gm In Dextrose/Water 1 100ml.bag @ 100 mls/hr IVPB Q1H [facility] Rx#: [id number] Oral 520 180 Output: Chest Tube Drainage 170 70 50 Thora-Vent Right Upper 170 70 50 Anterior Chest Urine 1350 1100 275 Stool 3 Other: Voiding Method Urinal Urinal # Voids 1 2 1 # Bowel Movements 1 - Constitutional General appearance: Present: cooperative, no acute distress - Respiratory Details: Lung sounds diminished marlena, coarse breath sounds on the right. Resp even/non- labored, currently on 4 LNC with O2 sats 100%. Able to achieve 750 ml on IS. Right thoravent w/ 60 ml bloody drainage overnight, 190 ml in last 24 hours. No air leak present. - Cardiovascular Details: S1/S2 present. Reg rate/rhythm, NSR on telemetry. No edema present. - Gastrointestinal Gastrointestinal Comment(s): Abd soft/NT/ND. Active BS. Frank diet. - Musculoskeletal Musculoskeletal: Present: strength equal bilaterally - Psychiatric Psychiatric: Present: A&O x's 3, appropriate affect, intact judgment & insight - Allied health notes Allied health notes reviewed: nursing - Labs CBC & Chem 7: 02/22/17 07:06 02/22/17 07:06 Labs: Abnormal Lab Results - Last 24 Hours (Table) 02/21/17 02/21/17 02/21/17 Range/Units 11:46 16:57 21:05 WBC (3.8-10.6) k/uL RBC (4.30-5.90) m/uL Hgb (13.0-17.5) gm/dL Hct (39.0-53.0) % Sodium (137-145) mmol/L BUN (9-20) mg/dL POC Glucose (mg/dL) 104 H 174 H 133 H (75-99) mg/dL Calcium (8.4-10.2) mg/dL Total Protein (6.3-8.2) g/dL Albumin (3.5-5.0) g/dL 02/22/17 02/22/17 02/22/17 Range/Units 06:33 06:58 07:06 WBC (3.8-10.6) k/uL RBC (4.30-5.90) m/uL Hgb (13.0-17.5) gm/dL Hct (39.0-53.0) % Sodium 136 L (137-145) mmol/L BUN 26 H (9-20) mg/dL POC Glucose (mg/dL) 67 L 45 L (75-99) mg/dL Calcium 8.1 L (8.4-10.2) mg/dL Total Protein 5.2 L (6.3-8.2) g/dL Albumin 2.7 L (3.5-5.0) g/dL 02/22/17 Range/Units 07:06 WBC 12.1 H (3.8-10.6) k/uL RBC 2.70 L (4.30-5.90) m/uL Hgb 8.4 L (13.0-17.5) gm/dL Hct 26.5 L (39.0-53.0) % Sodium (137-145) mmol/L BUN (9-20) mg/dL POC Glucose (mg/dL) (75-99) mg/dL Calcium (8.4-10.2) mg/dL Total Protein (6.3-8.2) g/dL Albumin (3.5-5.0) g/dL - Imaging and Cardiology Chest x-ray: report reviewed, image reviewed Assessment and Plan (1) Pneumothorax, right Status: Acute (2) Tobacco dependence Status: Acute (3) Rib fracture Status: Acute Plan: 1. CT placed to water seal. Repeat CXR in AM. 2. Encourage incentive spirometry use. 3. Encourage smoking cessation. 4. Increase activity, but to chair. 5. GI for/DVT prophylaxis. 6. Antibiotic/steroid management per pulmonology. 7. Comorbid medical conditions to be treated per primary service. 8. More recommendations as patient progresses. Time with Patient: Greater than 30
[2017-02-22] MEDS: MORPHINE SULFATE 2 MG/ML SYRINGE IVP PRN (11:31)
[2017-02-22 12:04] LABS: Glucose,Whole Blood 97 mg/dL (75-99)
--- NOTE | 2017-02-22 12:59 | P.PN ---
Subjective Principal diagnosis: Right pneumothorax Patient seen and examined. Patient states he is still having right-sided pain especially when he moves. The patient states his breathing is much better. Objective - Vital Signs Vital signs: Vital Signs Temp 98.5 F 02/22/17 11:39 Pulse 76 02/22/17 11:39 Resp 18 02/22/17 11:39 BP 178/69 02/22/17 11:39 Pulse Ox 97 02/22/17 11:39 Intake & Output 02/21/17 02/22/17 02/22/17 18:59 06:59 18:59 Intake Total 1670 1300 180 Output Total 1523 1170 326 Balance 147 130 -146 Weight 55.9 kg 55.9 kg Intake: IV 950 1300 0.9% NS @ 75 mL/hr 900 1200 Ampicillin-Sulbactam 1.5 50 100 gm In Sodium Chloride 0.9 % 50 ml @ 100 mls/hr IVPB Q8HR [facility] Rx#:[id number] Intake, IV Titration 200 Amount Magnesium Sulfate-D5w Pmx 200 1 gm In Dextrose/Water 1 100ml.bag @ 100 mls/hr IVPB Q1H [facility] Rx#: [id number] Oral 520 180 Output: Chest Tube Drainage 170 70 50 Thora-Vent Right Upper 170 70 50 Anterior Chest Urine 1350 1100 275 Stool 3 1 Other: Voiding Method Urinal Urinal # Voids 1 2 1 # Bowel Movements 1 - Exam Gen.: Patient is alert and oriented 3, no acute distress Cardiovascular: Regular rate and rhythm, S1/S2 Lungs: Coarse breath sounds bilaterally, right thoravent in place Abdomen: Soft nontender nondistended positive bowel sounds Extremities: No edema - Labs CBC & Chem 7: 02/22/17 07:06 02/22/17 07:06 Labs: Abnormal Lab Results - Last 24 Hours (Table) 02/21/17 02/21/17 02/22/17 Range/Units 16:57 21:05 06:33 WBC (3.8-10.6) k/uL RBC (4.30-5.90) m/uL Hgb (13.0-17.5) gm/dL Hct (39.0-53.0) % Sodium (137-145) mmol/L BUN (9-20) mg/dL POC Glucose (mg/dL) 174 H 133 H 67 L (75-99) mg/dL Calcium (8.4-10.2) mg/dL Total Protein (6.3-8.2) g/dL Albumin (3.5-5.0) g/dL 02/22/17 02/22/17 02/22/17 Range/Units 06:58 07:06 07:06 WBC 12.1 H (3.8-10.6) k/uL RBC 2.70 L (4.30-5.90) m/uL Hgb 8.4 L (13.0-17.5) gm/dL Hct 26.5 L (39.0-53.0) % Sodium 136 L (137-145) mmol/L BUN 26 H (9-20) mg/dL POC Glucose (mg/dL) 45 L (75-99) mg/dL Calcium 8.1 L (8.4-10.2) mg/dL Total Protein 5.2 L (6.3-8.2) g/dL Albumin 2.7 L (3.5-5.0) g/dL Assessment and Plan Plan: Status post fall with multiple right-sided rib fractures Flail chest Right [place]-pneumothorax - complex Acute exacerbation of COPD Acute hypoxic respiratory failure Aspiration pneumonia, now improving Elevated right hemidiaphragm Chronic kidney disease stage III Alcoholism Active tobacco abuse Anemia Hyponatremia O2 to maintain saturation greater than or equal to 90% Pain control Thoravent per thoracic surgery Pulmicort Steroid taper Duo nebs PT and OT Incentive spirometry and pulmonary hygiene GI and DVT prophylaxis
--- NOTE | 2017-02-22 16:41 | XR ---
EXAMINATION TYPE: XR chest 1V portable DATE OF EXAM: 02/22/2017 7:23 AM HISTORY: pneumothorax/ Thoravent. REFERENCE: Previous study dated 02/21/2017. FINDINGS: There is significant subcutaneous emphysema on the right. There is a pleural drain in place on the right. No definite pneumothorax is seen this time. There is volume loss in the right lung. Th ere is atelectasis at the left lung base. Heart size is obscured. I suspect small, bilateral effusion s. IMPRESSION: 1. NO EVIDENCE OF PNEUMOTHORAX THIS TIME. 2. VOLUME LOSS, RIGHT LUNG. 3. I SUSPECT SMALL, BILATERAL EFFUSIONS
[2017-02-22 17:23] LABS: Glucose,Whole Blood 183 mg/dL (75-99)
[2017-02-22 20:45] LABS: Glucose,Whole Blood 219 mg/dL (75-99)
[2017-02-22] MEDS: ATORVASTATIN 10 MG TAB PO SCH (21:12)
[2017-02-23] MEDS: DEXTROSE 5% IN WATER 1,000 ML IV SCH ×2 (00:01→16:30)
[2017-02-23 02:24] LABS: Glucose,Whole Blood 66 mg/dL (75-99)
[2017-02-23 02:28] LABS: Glucose,Whole Blood 75 mg/dL (75-99)
[2017-02-23] MEDS: oxyCODONE-APAP 5-325MG 1 EACH TAB PO PRN ×4 (03:48→23:22)
[2017-02-23] MEDS: INSULIN LISPRO (humaLOG) 300 UNIT/3 ML VIAL SQ SCH ×4 (06:28→21:25)
[2017-02-23] MEDS: PANTOPRAZOLE 40 MG TABLET PO SCH (06:30)
[2017-02-23 06:35] LABS: Glucose,Whole Blood 86 mg/dL (75-99)
[2017-02-23] MEDS: AMPICILLIN-SULBACTAM 1.5 GM in SODIUM CHLORIDE 0.9% 50 ML IVPB SCH ×3 (07:46→23:23)
[2017-02-23] MEDS: MORPHINE SULFATE 2 MG/ML SYRINGE IVP PRN (07:46)
[2017-02-23] MEDS: LIDOCAINE 5% PATCH TOPICAL SCH (07:47)
[2017-02-23] MEDS: HEPARIN SODIUM,PORCINE 5,000 UNIT/ML 1 ML VIAL SQ SCH ×3 (07:47→23:23)
[2017-02-23] MEDS: predniSONE 20 MG TAB PO SCH (07:48)
[2017-02-23] MEDS: DOCUSATE 100 MG CAP PO SCH (07:48)
[2017-02-23] MEDS: LISINOPRIL 10 MG TAB PO SCH ×2 (07:48→20:42)
[2017-02-23] MEDS: amLODIPine 5 MG TAB PO SCH (07:48)
[2017-02-23] MEDS: METOPROLOL TARTRATE 50 MG TAB PO SCH ×2 (07:48→20:42)
--- NOTE | 2017-02-23 08:41 | XR ---
EXAMINATION TYPE: XR chest 1V portable DATE OF EXAM: 02/23/2017 7:17 AM COMPARISON: Prior chest x-ray 22 Feb 2017 HISTORY: Chest tube TECHNIQUE: Single frontal view of the chest is obtained. FINDINGS: Right-sided thoracic vent tubing is in place, there is subcutaneous emphysema which may be somewhat improved. Patient is rotated. Bibasilar increased density is noted. No sizable pneumothorax . Cardiac mediastinal silhouette, pulmonary vascularity and denisse not significantly changed. IMPRESSION: Rotated exam. Right lower lobe atelectasis and effusion. Minimal left basilar atelectasi s.
[2017-02-23] MEDS: BUDESONIDE 0.5 MG/2 ML NEBU INHALATION SCH ×2 (10:02→20:34)
[2017-02-23] MEDS: IPRATROPIUM-ALBUTEROL 3 ML NEB INHALATION SCH ×4 (10:02→20:34)
--- NOTE | 2017-02-23 11:31 | P.PN ---
<Ernie Dorado - Last Filed: 02/23/17 11:15> Progress Note - Text CV Surgery Nursing Principal diagnosis: Right hydropneumothorax, status post right sided rib fractures, status post right pleural chest tube removal at [facility]. Status post day #4 placement of right pleural thoravent secondary to increasing pneumothorax Patient awake and alert, no distress noted, no specific complaints. Vital Signs: Afebrile Vital Signs - 24 hr 02/22/17 02/22/17 02/22/17 11:21 11:39 12:15 Temperature 98.5 F Pulse Rate 72 Pulse Rate [ 89 76 Pulse Oximetery ] Respiratory 20 18 Rate Blood Pressure 178/69 [Left Arm] Blood Pressure [Right Arm] O2 Sat by Pulse 97 Oximetry 02/22/17 02/22/17 02/22/17 12:25 15:38 15:53 Temperature Pulse Rate 84 80 76 Pulse Rate [ Pulse Oximetery ] Respiratory Rate Blood Pressure [Left Arm] Blood Pressure [Right Arm] O2 Sat by Pulse Oximetry 02/22/17 02/22/17 02/22/17 16:00 19:45 19:55 Temperature 98.1 F Pulse Rate 68 72 Pulse Rate [ 63 Pulse Oximetery ] Respiratory 18 Rate Blood Pressure 141/80 [Left Arm] Blood Pressure [Right Arm] O2 Sat by Pulse 98 Oximetry 02/22/17 02/23/17 02/23/17 20:00 00:00 04:00 Temperature 98.1 F 97.3 F L 98.7 F Pulse Rate Pulse Rate [ 88 60 75 Pulse Oximetery ] Respiratory 18 18 18 Rate Blood Pressure 145/73 165/73 [Left Arm] Blood Pressure 135/72 [Right Arm] O2 Sat by Pulse 99 95 97 Oximetry 02/23/17 02/23/17 07:40 07:41 Temperature 98.5 F Pulse Rate Pulse Rate [ 78 78 Pulse Oximetery ] Respiratory 20 20 Rate Blood Pressure 152/86 [Left Arm] Blood Pressure [Right Arm] O2 Sat by Pulse 99 Oximetry Labs: No new labs this a.m. IV Fluids: D5 W at 75 mL per hour. Lungs: Scattered rhonchi throughout, diminished bilateral bases right greater than left. Respirations are symmetrical and unlabored. O2 sat: 99% on 2 L nasal cannula. I/S: 750 mL, reviewed with the patient important of using his incentive spirometry every hour while awake. The patient did give a good return demonstration on his incentive spirometry with but will need a lot of coaching with his incentive spirometry. Heart: S1S2, regular rhythm and rate, negative for S3, gallop or murmur. Remote telemetry showing normal sinus rhythm heart rate 62. Right anterior chest Thoravent intact, some serous fluid leaking around insertion site. No airleak noted. 30 mL of output in the last 8 hours, 140 mL output in the last 24 hours. Abdomen: Soft, Positive bowel sounds present in all 4 quadrant. CBGs: 75-219 mg/dL in the last 24 hours. U/O: Adequate, 24 hr Total: Intake & Output 02/21/17 02/22/17 02/23/17 02/24/17 06:59 06:59 06:59 06:59 Intake Total 2070 2970 1430 1060 Output Total 1697 2693 1137 100 Balance 373 277 293 960 Weight 56.2 kg 55.9 kg 56.2 kg Active Medications Albuterol/Ipratropium (Duoneb 0.5 Mg-3 Mg/3 Ml Soln) 3 ml INHALATION RT-QID PRN PRN Reason: Shortness Of Breath Or Wheezing Albuterol/Ipratropium (Duoneb 0.5 Mg-3 Mg/3 Ml Soln) 3 ml INHALATION RT-QID [facility] Last Admin: 02/23/17 10:02 Dose: Not Given Amlodipine Besylate (Norvasc) 5 mg PO DAILY [facility] Last Admin: 02/23/17 07:48 Dose: 5 mg Atorvastatin Calcium (Lipitor) 10 mg PO HS [facility] Last Admin: 02/22/17 21:12 Dose: 10 mg Budesonide (Pulmicort) 0.5 mg INHALATION RT-BID [facility] Last Admin: 02/23/17 10:02 Dose: Not Given Docusate Sodium (Colace) 100 mg PO DAILY [facility] Last Admin: 02/23/17 07:48 Dose: 100 mg Heparin Sodium (Porcine) (Heparin) 5,000 unit SQ Q8HR [facility] Last Admin: 02/23/17 07:47 Dose: 5,000 unit Ampicillin Sodium/Sulbactam (Sodium 1.5 gm/ Sodium Chloride) 50 mls @ 100 mls/ hr IVPB Q8HR [facility] Last Admin: 02/23/17 07:46 Dose: 100 mls/hr Dextrose/Water (Dextrose 5%-Water Iv Soln) 1,000 mls @ 75 mls/hr IV .[id number] [facility] Last Admin: 02/23/17 00:01 Dose: 75 mls/hr Insulin Human Lispro (Humalog) 0 unit SQ ACHS [facility] PRN Reason: Protocol Last Admin: 02/23/17 06:28 Dose: Not Given Lidocaine (Lidoderm) 1 patch TOPICAL DAILY [facility] Last Admin: 02/23/17 07:47 Dose: 1 patch Lisinopril (Zestril) 10 mg PO BID [facility] Last Admin: 02/23/17 07:48 Dose: 10 mg Magnesium Hydroxide (Milk Of Magnesia) 2,400 mg PO ONCE PRN PRN Reason: Constipation Last Admin: 02/21/17 23:05 Dose: 2,400 mg Metoprolol Tartrate (Lopressor) 50 mg PO BID [facility] Last Admin: 02/23/17 07:48 Dose: 50 mg Morphine Sulfate (Morphine Sulfate (Inj)) 2 mg IVP Q2H PRN PRN Reason: Pain Last Admin: 02/23/17 07:46 Dose: 2 mg Oxycodone/Acetaminophen (Percocet 5-325) 1 each PO Q4HR PRN PRN Reason: Pain Last Admin: 02/23/17 11:18 Dose: 1 each Pantoprazole Sodium (Protonix) 40 mg PO [id number]-[id number] [facility] Last Admin: 02/23/17 06:30 Dose: 40 mg Prednisone () 60 mg PO DAILY [facility] Last Admin: 02/23/17 07:48 Dose: 60 mg Plan: 1. CT placed to water seal yesterday 02/22/2017, we will clamp his Thoravent today and repeat CXR in AM. 2. Encourage incentive spirometry use. 3. Encourage smoking cessation. 4. Increase activity, but to chair. 5. GI for/DVT prophylaxis. 6. Antibiotic/steroid management per pulmonology. 7. Comorbid medical conditions to be treated per primary service. 8. More recommendations as patient progresses. <Des Lange - Last Filed: 02/23/17 14:41> Progress Note - Text The patient was seen and examined. I agree with the above assessment and plan. Chest x-ray was reviewed. Lung appears to be expanded. Right hemidiaphragm is elevated as seen on the previous studies. He may have a small residual effusion. His Thoravent is currently clamped. We'll obtain a follow up chest x -ray in the morning.
[2017-02-23 12:09] LABS: Glucose,Whole Blood 111 mg/dL (75-99)
--- NOTE | 2017-02-23 16:57 | PN ---
He was seen on 02/23/2017. He continues to have some shortness of breath and pain in his right chest. On physical examination, respiratory rate is 20, pulse rate of 90, temperature 98.3, blood pressure 179/94, O2 sat on room air is 94%. HEENT is unremarkable. Chest reveals decreased breath sounds on the right with chest tube in place. Cardiovascular system reveals an S1, S2. Abdomen is soft. There is no pedal edema. IMPRESSION AT THIS TIME: Right sided flail chest with multiple rib fractures and pneumothorax. At this point in time, continue chest tube with close cardiothoracic surgery followup. Consult Dr. Helio Jacobo from physical medicine and rehab as he is quite weak and may benefit from inpatient rehab. Continue incentive spirometry. Increase his activity level. His prognosis at this time is fair.
--- NOTE | 2017-02-23 16:57 | P.PN ---
Subjective 81-year-old gentleman is admitted to the hospital after sustaining a fall causing a pneumothorax patient was transferred from [facility] to this facility. Patient has had a thoravent place in the right second intercostal space. Today patient states he is able to ambulate. is currently off suction Take his pain is controlled denies having any new complaints Objective - Vital Signs Vital signs: Vital Signs Temp 97.1 F L 02/23/17 16:00 Pulse 76 02/23/17 16:00 Resp 18 02/23/17 16:00 BP 160/83 02/23/17 16:00 Pulse Ox 97 02/23/17 16:00 Intake & Output 02/22/17 02/23/17 02/23/17 18:59 06:59 18:59 Intake Total 1380 50 1140 Output Total 1077 60 800 Balance 303 -10 340 Weight 55.9 kg 56.2 kg 56.2 kg Intake: IV 50 1000 Ampicillin-Sulbactam 1.5 50 100 gm In Sodium Chloride 0.9 % 50 ml @ 100 mls/hr IVPB Q8HR [facility] Rx#:[id number] Dextrose 5% in Water 1, 900 000 ml @ 75 mls/hr IV . [id number] [facility] Rx#:[id number] Intake, IV Titration 1000 Amount Ampicillin-Sulbactam 1.5 100 gm In Sodium Chloride 0.9 % 50 ml @ 100 mls/hr IVPB Q8HR [facility] Rx#:[id number] Dextrose 5% in Water 1, 900 000 ml @ 75 mls/hr IV . [id number] [facility] Rx#:[id number] Oral 380 140 Output: Chest Tube Drainage 50 60 100 Thora-Vent Right Upper 50 60 100 Anterior Chest Urine 1025 700 Stool 2 Other: Voiding Method Urinal Urinal Urinal # Voids 1 1 # Bowel Movements 1 - Exam Lungs air movement is appreciated diminished breath sounds on the right no rhonchi or wheezing or crackles Heart S1-S2 heard regular rate and rhythm no murmurs appreciated Abdomen is soft nontender organomegaly Lower extremities no edema noted At is atraumatic normal self the pupils equal round and reactive light and accommodation - Labs CBC & Chem 7: 02/22/17 07:06 02/22/17 07:06 Labs: Abnormal Lab Results - Last 24 Hours (Table) 02/22/17 02/22/1717 Range/Units 17:19 20:25 02:05 POC Glucose (mg/dL) 183 H 219 H 66 L (75-99) mg/dL 02/23/17 Range/Units 11:52 POC Glucose (mg/dL) 111 H (75-99) mg/dL Assessment and Plan Plan: Right-sided pneumothorax secondary to a traumatic fall causing right-sided rib fractures #2 history of hypertension #3 alcohol abuse. #4 CKD stage III #5 COPD #6 GERD #7 chronic opioid dependency #8 acute tracheobronchitis Plan Current management. Currently off suction continue pain control Bowel care. Breathing treatments Oral steroids DVT prophylaxis.
[2017-02-23 16:59] LABS: Glucose,Whole Blood 156 mg/dL (75-99)
[2017-02-23] MEDS: ATORVASTATIN 10 MG TAB PO SCH (20:42)
[2017-02-23 21:08] LABS: Glucose,Whole Blood 173 mg/dL (75-99)
[2017-02-24 02:58] LABS: Glucose,Whole Blood 89 mg/dL (75-99)
[2017-02-24] MEDS: oxyCODONE-APAP 5-325MG 1 EACH TAB PO PRN ×4 (05:01→21:49)
[2017-02-24] MEDS: DEXTROSE 5% IN WATER 1,000 ML IV SCH ×2 (05:03→18:22)
[2017-02-24] MEDS: INSULIN LISPRO (humaLOG) 300 UNIT/3 ML VIAL SQ SCH ×4 (06:23→21:52)
[2017-02-24 06:29] LABS: Glucose,Whole Blood 79 mg/dL (75-99)
[2017-02-24] MEDS: PANTOPRAZOLE 40 MG TABLET PO SCH (06:42)
[2017-02-24] MEDS: IPRATROPIUM-ALBUTEROL 3 ML NEB INHALATION SCH ×4 (08:25→20:17)
[2017-02-24] MEDS: BUDESONIDE 0.5 MG/2 ML NEBU INHALATION SCH ×2 (08:25→20:17)
--- NOTE | 2017-02-24 08:35 | XR ---
EXAMINATION TYPE: XR chest 1V portable DATE OF EXAM: 02/24/2017 7:09 AM COMPARISON: 02/23/2017 HISTORY: Pneumothorax TECHNIQUE: Single frontal view of the chest is obtained. FINDINGS: Right-sided thoracostomy tube has been repositioned with its distal tip angulated towards t he right cardiophrenic angle. There is right hemidiaphragm elevation. Multiple right rib fractures ar e noted with a moderate degree of right chest wall subcutaneous emphysema. No sizable residual pneumo thorax. Minimal left basilar atelectasis is again noted. IMPRESSION: 1. Repositioning of the thoracostomy tube/pleural drain with no sizable residual pneumothorax visuali zed. 2. Multiple right rib fractures and unchanged moderate subcutaneous emphysema on the right chest wall . 3. Right hemidiaphragm elevation and bibasilar atelectasis, similar in degree to the prior exam.
[2017-02-24] MEDS: AMPICILLIN-SULBACTAM 1.5 GM in SODIUM CHLORIDE 0.9% 50 ML IVPB SCH ×3 (09:00→23:40)
[2017-02-24] MEDS: predniSONE 20 MG TAB PO SCH (09:00)
[2017-02-24] MEDS: LIDOCAINE 5% PATCH TOPICAL SCH (09:00)
[2017-02-24] MEDS: amLODIPine 5 MG TAB PO SCH (09:01)
[2017-02-24] MEDS: METOPROLOL TARTRATE 50 MG TAB PO SCH ×2 (09:01→21:49)
[2017-02-24] MEDS: LISINOPRIL 10 MG TAB PO SCH ×2 (09:01→21:49)
[2017-02-24] MEDS: DOCUSATE 100 MG CAP PO SCH (09:01)
[2017-02-24] MEDS: HEPARIN SODIUM,PORCINE 5,000 UNIT/ML 1 ML VIAL SQ SCH ×3 (09:01→23:41)
--- NOTE | 2017-02-24 11:13 | P.PN ---
<Ernie Dorado - Last Filed: 02/24/17 11:04> Progress Note - Text CV Surgery Nursing Principal diagnosis: Right hydropneumothorax, status post right sided rib fractures, status post right pleural chest tube removal at [facility]. Status post day #5 placement of right pleural thoravent secondary to increasing pneumothorax Patient awake and alert, no distress noted, no specific complaints. Patient states he ambulated in the hallway with assistance chest her day 2 Vital Signs: Afebrile Vital Signs - 24 hr 02/23/17 02/23/17 02/23/17 11:24 11:50 12:00 Temperature 98.3 F Pulse Rate 74 76 Pulse Rate [ 90 Pulse Oximetery ] Respiratory 20 Rate Blood Pressure [Left Arm] Blood Pressure 179/94 [Right Arm] O2 Sat by Pulse 94 L Oximetry 02/23/17 02/23/17 02/23/17 15:41 15:52 16:00 Temperature 97.1 F L Pulse Rate 78 78 Pulse Rate [ 76 Pulse Oximetery ] Respiratory 18 Rate Blood Pressure [Left Arm] Blood Pressure 160/83 [Right Arm] O2 Sat by Pulse 97 Oximetry 02/23/17 02/23/17 02/23/17 20:00 20:34 20:48 Temperature 98.2 F Pulse Rate 80 82 Pulse Rate [ 85 Pulse Oximetery ] Respiratory 18 Rate Blood Pressure 137/74 [Left Arm] Blood Pressure [Right Arm] O2 Sat by Pulse 96 Oximetry 02/24/17 02/24/17 02/24/17 00:00 04:00 08:00 Temperature 98.4 F 98.0 F 97.6 F Pulse Rate Pulse Rate [ 64 86 90 Pulse Oximetery ] Respiratory 18 18 16 Rate Blood Pressure 169/78 159/83 163/84 [Left Arm] Blood Pressure [Right Arm] O2 Sat by Pulse 98 98 95 Oximetry 02/24/17 02/24/17 02/24/17 08:25 08:36 11:04 Temperature Pulse Rate 80 80 Pulse Rate [ 90 Pulse Oximetery ] Respiratory 16 16 Rate Blood Pressure [Left Arm] Blood Pressure [Right Arm] O2 Sat by Pulse 93 L Oximetry Labs: No new lab results. IV Fluids: D5W 75 mL per hour. Lungs: Few scattered crackles throughout, diminished bilateral bases right greater than left. Positive subcutaneous emphysema to his right chest. Respirations are symmetrical and unlabored. O2 sat: 93% on room air. I/S: 750 mL, reviewed with the patient important of using his incentive spirometry every hour while awake. The patient did give a good return demonstration on his incentive spirometry. Heart: S1S2, regular rhythm and rate, negative for S3, gallop or murmur. Remote telemetry showing normal sinus rhythm heart rate 85. Right anterior chest Thoravent intact. The Thoravent was clamped the last 24 hours. It drained 50 mL of thin serosanguineous drainage in the last 24 hours, prior to it being clamped. The Thoravent was unclamped this a.m. with no airleak noted. No drainage noted after the Thoravent was unclamped. Scattered ecchymosis to his right chest and right lower abdomen. Abdomen: Soft, Positive bowel sounds present in all 4 quadrants. Last bowel movement was on 02/22/2017. CBGs: 79-173 mg/dL in the last 24 hours. U/O: Adequate. 24 hr Total: Intake & Output 02/22/17 02/23/17 02/24/17 02/25/17 06:59 06:59 06:59 06:59 Intake Total 2970 1430 2115 100 Output Total 2693 1137 4750 1 Balance 277 293 -2635 99 Weight 55.9 kg 56.2 kg 56.3 kg Active Medications Albuterol/Ipratropium (Duoneb 0.5 Mg-3 Mg/3 Ml Soln) 3 ml INHALATION RT-QID PRN PRN Reason: Shortness Of Breath Or Wheezing Albuterol/Ipratropium (Duoneb 0.5 Mg-3 Mg/3 Ml Soln) 3 ml INHALATION RT-QID [facility] Last Admin: 02/24/17 08:25 Dose: 3 ml Amlodipine Besylate (Norvasc) 5 mg PO DAILY [facility] Last Admin: 02/24/17 09:01 Dose: 5 mg Atorvastatin Calcium (Lipitor) 10 mg PO [facility] Last Admin: 02/23/17 20:42 Dose: 10 mg Budesonide (Pulmicort) 0.5 mg INHALATION RT-BID [facility] Last Admin: 02/24/17 08:25 Dose: 0.5 mg Docusate Sodium (Colace) 100 mg PO DAILY [facility] Last Admin: 02/24/17 09:01 Dose: 100 mg Heparin Sodium (Porcine) (Heparin) 5,000 unit SQ Q8HR [facility] Last Admin: 02/24/17 09:01 Dose: 5,000 unit Ampicillin Sodium/Sulbactam (Sodium 1.5 gm/ Sodium Chloride) 50 mls @ 100 mls/ hr IVPB Q8HR [facility] Last Admin: 02/24/17 09:00 Dose: 100 mls/hr Dextrose/Water (Dextrose 5%-Water Iv Soln) 1,000 mls @ 75 mls/hr IV .[id number] [facility] Last Admin: 02/24/17 05:03 Dose: Not Given Insulin Human Lispro (Humalog) 0 unit SQ ACHS [facility] PRN Reason: Protocol Last Admin: 02/24/17 06:23 Dose: Not Given Lidocaine (Lidoderm) 1 patch TOPICAL DAILY [facility] Last Admin: 02/24/17 09:00 Dose: 1 patch Lisinopril (Zestril) 10 mg PO BID [facility] Last Admin: 02/24/17 09:01 Dose: 10 mg Magnesium Hydroxide (Milk Of Magnesia) 2,400 mg PO ONCE PRN PRN Reason: Constipation Last Admin: 02/21/17 23:05 Dose: 2,400 mg Metoprolol Tartrate (Lopressor) 50 mg PO BID [facility] Last Admin: 02/24/17 09:01 Dose: 50 mg Morphine Sulfate (Morphine Sulfate (Inj)) 2 mg IVP Q2H PRN PRN Reason: Pain Last Admin: 02/23/17 07:46 Dose: 2 mg Oxycodone/Acetaminophen (Percocet 5-325) 1 each PO Q4HR PRN PRN Reason: Pain Last Admin: 02/24/17 09:00 Dose: 1 each Pantoprazole Sodium (Protonix) 40 mg PO AC-BRKFST [facility] Last Admin: 02/24/17 06:42 Dose: 40 mg Prednisone () 60 mg PO DAILY [facility] Last Admin: 02/24/17 09:00 Dose: 60 mg Plan: 1. The Thoravent will be discontinued today repeat chest x-ray in 1 hour after removal and repeat chest x-ray in the a.m. 2. Encourage incentive spirometry use every hour while awake. 3. Encourage smoking cessation. 4. Increase activity, ambulating in the hallway with assistance. 5. GI for/DVT prophylaxis. 6. Antibiotic/steroid management per pulmonology. 7. Comorbid medical conditions to be treated per primary service. 8. More recommendations as patient progresses. Right chest Thoravent removed without incident, dressing applied with using 4 x 4 gauze, 4 x 4 impregnated Vaseline gauze and secured with tape. <Des Lange - Last Filed: 02/24/17 16:03> Progress Note - Text The patient was seen and examined. I agree with the above assessment and plan. His thoravent was removed without incident. Follow-up chest x-ray does not reveal any obvious pneumothorax. We will repeat a chest x-ray in the morning.
--- NOTE | 2017-02-24 11:41 | P.PN ---
Subjective 81-year-old gentleman is admitted to the hospital after sustaining a fall causing a pneumothorax patient was transferred from [facility] to this facility. Patient has had a thoravent place in the right second intercostal space. Today patient states he is able to ambulate. is currently off suction Take his pain is controlled denies having any new complaints 02/24/2017 No new overnight events. Patient denies having any chest pain headaches blurry vision nausea vomiting is tolerating diet Objective - Vital Signs Vital signs: Vital Signs Temp 97.0 F L 02/24/17 11:10 Pulse 84 02/24/17 11:10 Resp 16 02/24/17 11:10 BP 176/93 02/24/17 11:10 Pulse Ox 95 02/24/17 11:10 Intake & Output 02/23/17 02/24/17 02/24/17 18:59 06:59 18:59 Intake Total 1140 975 100 Output Total 2150 2600 1 Balance -1010 -1625 99 Weight 56.2 kg 56.3 kg Intake: IV 1000 875 Ampicillin-Sulbactam 1.5 100 50 gm In Sodium Chloride 0.9 % 50 ml @ 100 mls/hr IVPB Q8HR [facility] Rx#:[id number] Dextrose 5% in Water 1, 900 825 000 ml @ 75 mls/hr IV . [id number] [facility] Rx#:[id number] Oral 140 100 100 Output: Chest Tube Drainage 100 Thora-Vent Right Upper 100 Anterior Chest Urine 2050 2600 Stool 1 Other: Voiding Method Urinal Urinal Urinal # Voids 1 3 - Exam Lungs air movement is appreciated diminished breath sounds on the right no rhonchi or wheezing or crackles ThoraVAC is removed Heart S1-S2 heard regular rate and rhythm no murmurs appreciated Abdomen is soft nontender organomegaly Lower extremities no edema noted HEad atraumatic normal self the pupils equal round and reactive light and accommodation Skin large bruise on the right flank - Labs CBC & Chem 7: 02/22/17 07:06 02/22/17 07:06 Labs: Abnormal Lab Results - Last 24 Hours (Table) 02/23/17 02/23/17 02/23/17 Range/Units 11:52 16:45 21:07 POC Glucose (mg/dL) 111 H 156 H 173 H (75-99) mg/dL Assessment and Plan Plan: Right-sided pneumothorax secondary to a traumatic fall causing right-sided rib fractures #2 history of hypertension #3 alcohol abuse. #4 CKD stage III #5 COPD #6 GERD #7 chronic opioid dependency #8 acute tracheobronchitis Plan Repeat chest x-ray. Patient be seen by Dr. Atkinson tomorrow would benefit from likely a discharged to a rehab/residential Bowel care. Breathing treatments Oral steroids DVT prophylaxis.
[2017-02-24 12:18] LABS: Glucose,Whole Blood 117 mg/dL (75-99)
--- NOTE | 2017-02-24 12:26 | PN ---
DATE OF SERVICE: 02/24/2017 He has been hemodynamically stable. He is less short of breath. On physical examination, blood pressure 176/93, respiratory rate 16, pulse 84, temperature 97. O2 sat on room air is 95%. HEENT is unremarkable. Chest reveals right chest tube in place. Decreased breath sounds at the right side. Cardiovascular system reveals an S1, S2. Abdomen is soft. There is no pedal edema. Chest x-ray shows no sizeable pneumothorax, multiple right-sided rib fractures with subcutaneous emphysema with right hemidiaphragm elevation. IMPRESSION: 1. Traumatic the right-sided pneumothorax with pleural effusion. 2. Medical debility. 3. Chronic obstructive pulmonary disease. 4. Alcoholism with recent delirium tremens. Increase the patient's activity level, encourage incentive spirometry. His prognosis at this time is guarded.
--- NOTE | 2017-02-24 13:25 | XR ---
EXAMINATION TYPE: XR chest 1V portable DATE OF EXAM: 02/24/2017 12:33 PM COMPARISON: Prior chest x-ray February 2017 at earlier time HISTORY: Status post chest tube removal TECHNIQUE: Single frontal view of the chest is obtained. FINDINGS: Posterior right-sided rib fractures are present, chest tube is absent. Right basilar effus ion and associated atelectasis noted, subcutaneous emphysema is present. No sizable pneumothorax is e vident. IMPRESSION: No evident complication status post chest tube removal.
[2017-02-24 16:58] LABS: Glucose,Whole Blood 169 mg/dL (75-99)
[2017-02-24 21:42] LABS: Glucose,Whole Blood 115 mg/dL (75-99)
[2017-02-24] MEDS: ATORVASTATIN 10 MG TAB PO SCH (21:48)
[2017-02-25 05:46] LABS: Glucose,Whole Blood 64 mg/dL (75-99)
[2017-02-25 05:58] LABS: Basophils % (A) 0 %; CH 31.8; CHCM 33.1; Eosinophils % (A) 0 %; HCT 29.9 % (39.0-53.0); HDW 2.53; HGB 9.7 gm/dL (13.0-17.5); Luc # (Auto) 0.09; Luc % (Auto) 1; Lymphocytes # (A) 0.4 k/uL (1.0-4.8); Lymphocytes % (A) 3 %; MCH 31.3 pg (25.0-35.0); MCHC 32.4 g/dL (31.0-37.0); MCV 96.5 fL (80.0-100.0); Mean Platelet Volume 6.8; Monocytes # (A) 0.6 k/uL (0-1.0); Monocytes % (A) 5 %; Neutrophils # (A) 11.6 k/uL (1.3-7.7); Neutrophils % (A) 91 %; RDW 14.1 % (11.5-15.5); WBC 12.7 k/uL (3.8-10.6); WBC (Perox) 12.43
[2017-02-25 06:17] LABS: ALT 42 U/L (21-72); AST 30 U/L (17-59); Alkaline Phosphatase 68 U/L (38-126); Anion Gap 9 mmol/L; Blood Urea Nitrogen 17 mg/dL (9-20); Calcium 8.9 mg/dL (8.4-10.2); Carbon Dioxide 30 mmol/L (22-30); Chloride 89 mmol/L (98-107); Glucose 84 mg/dL (74-99); Non-African American GFR(MDRD) >60 (>60 ml/min/1.73 sqM); Potassium 4.2 mmol/L (3.5-5.1); Sodium 128 mmol/L (137-145); Total Bilirubin 0.8 mg/dL (0.2-1.3); Total Protein 5.9 g/dL (6.3-8.2)
[2017-02-25 06:18] LABS: Glucose,Whole Blood 75 mg/dL (75-99)
--- NOTE | 2017-02-25 06:37 | P.CONS ---
History of Present Illness - Chief Complaint Medical debility - History of Present Illness I Had the opportunity to see patient for inpatient rehabilitation consultation with regard to medical debility. He was admitted to [facility] February 16. See my doctor Emerson for same. PT prescribed. I have added OT. Serial chest x-rays followed. Previous functional history, as elicited from patient: 81-year-old right-handed white male who is lives and 2 floor home with Marychuy Suero. History smoking doesn't smoke currently. Admits to alcohol. Describes independent with standing shower and gait with standard cane. does the cooking, laundry, driving. Review of Systems Review of systems: ENT: Denies sneezes or discharge. Eyes: Denies discharge or photophobia. Cardiac: Denies chest pain or palpitation. Pulmonary: Mild shortness of breath. Mild chest wall discomfort. Gastrointestinal: Denies nausea, emesis, constipation, diarrhea. Genitourinary: Denies discharge or frequency. Musculoskeletal: Denies muscle or bone aches. Neurologic: Denies motor or sensory change. Endocrine: Denies shakes or sweats. Oncology: Denies cancers. Dermatologic: Denies rash, itching, pruritus. ALLERGY/immunology: Denies sneezes, rashes. Past Medical History Past Medical History: COPD, GERD/Reflux, Renal Disease, Respiratory Disorder History of Any Multi-Drug Resistant Organisms: None Reported Past Surgical History: Back Surgery, Orthopedic Surgery Additional Past Surgical History / Comment(s): 5 back surgies, b/L shoulder surgies, Past Anesthesia/Blood Transfusion Reactions: No Reported Reaction Past Psychological History: No Psychological Hx Reported Smoking Status: Current every day smoker Past Alcohol Use History: Abuse Past Drug Use History: None Reported - Past Family History Father Family Medical History: No Reported History Mother Family Medical History: Unable to Obtain Medications and Allergies Home Medications Medication Instructions Recorded Confirmed Type Albuterol Inhaler [Ventolin Hfa 1 - 2 puff INHALATION RT-Q6H PRN 02/16/17 History Inhaler] Amitriptyline HCl [Elavil] 100 mg PO HS 02/16/17 02/16/17 History Lisinopril [Zestril] 5 mg PO BID 02/16/17 02/16/17 History Metoprolol Tartrate [Lopressor] 50 mg PO BID 02/16/17 02/16/17 History Omeprazole 40 mg PO DAILY 02/16/17 02/16/17 History Simvastatin [Zocor] 20 mg PO HS 02/16/17 02/16/17 History Terazosin HCl [Hytrin] 10 mg PO HS 02/16/17 02/16/17 History oxyCODONE-APAP 10-325MG [Percocet 1 tab PO Q4H PRN 02/16/17 02/16/17 History 10-325 mg] Allergies Allergy/AdvReac Type Severity Reaction Status Date / Time No Known Allergies Allergy Unverified 02/16/17 19:59 Physical Exam Vitals: Vital Signs Temp Pulse Pulse Resp BP Pulse Ox 02/25/17 04:00 99.2 F 77 18 156/94 96 02/25/17 00:00 98.6 F 81 18 139/93 95 02/24/17 20:27 88 02/24/17 20:17 84 02/24/17 20:00 99.0 F 106 H 18 177/92 96 02/24/17 15:43 97.6 F 86 18 163/76 98 02/24/17 15:22 84 16 02/24/17 12:05 84 02/24/17 11:55 84 02/24/17 11:10 97.0 F L 84 16 176/93 95 02/24/17 11:04 90 16 02/24/17 08:36 80 02/24/17 08:25 80 16 93 L 02/24/17 08:00 97.6 F 90 16 163/84 95 Intake and Output 02/24/17 02/24/17 02/25/17 14:59 22:59 06:59 Intake Total 1220 375 700 Output Total 1 2 1601 Balance 1219 373 -901 Intake: IV 1000 225 700 Ampicillin-Sulbactam 1.5 100 100 gm In Sodium Chloride 0.9 % 50 ml @ 100 mls/hr IVPB Q8HR [facility] Rx#:[id number] Dextrose 5% in Water 1, 900 225 600 000 ml @ 75 mls/hr IV . [id number] [facility] Rx#:[id number] Oral 220 150 Output: Urine 1600 Stool 1 2 1 Other: Voiding Method Urinal Urinal # Voids 2 Weight 52.8 kg Patient Weight 02/25/17 06:59 Weight 52.8 kg Skin: Atrophic, turgor. Skin and legs scaly. General: Medium build and comfortable appearance. Head: Normocephalic, atraumatic. Eyes: Symmetric. Pupils equal round. Ears: Symmetric. Hearing within normal limits. Mouth: Clear. Neck: Supple. Carotid without bruit. Cardiac: Regular rate and rhythm. Lungs: Clear anteriorly and posteriorly. Abdomen: Soft active nontender. Extremities: Normal tone. Seen in the limb. Neurological: Mental status: Alert, cooperative, pleasant. Cranial nerves: Symmetric facial tone and trapezius. Motor: Active movement throughout but at best 3 minus over 5. Sensation: Intact throughout. DTRs: Absent throughout. Mobility: Quite weak and did not attempt to sit or stand on my own. Results CBC & Chem 7: 02/25/17 05:02/25/17 05:31 Labs: Abnormal Lab Results - Last 24 Hours (Table) 02/24/17 02/24/17 02/24/17 Range/Units 12:03 16:19 21:31 WBC (3.8-10.6) k/uL RBC (4.30-5.90) m/uL Hgb (13.0-17.5) gm/dL Hct (39.0-53.0) % Neutrophils # (1.3-7.7) k/uL Lymphocytes # (1.0-4.8) k/uL Sodium (137-145) mmol/L Chloride (98-107) mmol/L POC Glucose (mg/dL) 117 H 169 H 115 H (75-99) mg/dL Total Protein (6.3-8.2) g/dL Albumin (3.5-5.0) g/dL 02/25/17 02/25/17 02/25/17 Range/Units 05:31 05:31 05:44 WBC 12.7 H (3.8-10.6) k/uL RBC 3.10 L (4.30-5.90) m/uL Hgb 9.7 L (13.0-17.5) gm/dL Hct 29.9 L (39.0-53.0) % Neutrophils # 11.6 H (1.3-7.7) k/uL Lymphocytes # 0.4 L (1.0-4.8) k/uL Sodium 128 L (137-145) mmol/L Chloride 89 L (98-107) mmol/L POC Glucose (mg/dL) 64 L (75-99) mg/dL Total Protein 5.9 L (6.3-8.2) g/dL Albumin 3.3 L (3.5-5.0) g/dL Chest x-ray: report reviewed (Serial chest x-rays followed for pneumothorax.) Assessment and Plan (1) Pneumothorax, right Status: Acute Plan: Impression: 1. Medical debility. 2. Right rib fractures with right pneumothorax. 3. Renal disease. 4. Respiratory disease. 5. COPD. Comments and plan: PT prescribed and I have added OT. Rehab prognosis currently guarded. We'll follow with yourself. At this time, would anticipate poor endurance.
[2017-02-25] MEDS: INSULIN LISPRO (humaLOG) 300 UNIT/3 ML VIAL SQ SCH ×4 (06:42→20:27)
[2017-02-25] MEDS: PANTOPRAZOLE 40 MG TABLET PO SCH (06:52)
[2017-02-25] MEDS: DEXTROSE 5% IN WATER 1,000 ML IV SCH (06:52)
--- NOTE | 2017-02-25 07:50 | P.PN ---
Subjective Principal diagnosis: This is a continue progress note for continuing care. Discontinue proximal known on a 1-year-old white male essentially admitted for recurrent pneumothorax. Patient has had Donaldson tube was continued. He sitting comfortably today. However, he's been having episodes of hypoglycemia with elements of atrial fibrillation, which is not new for the patient. No significant chest pain per se. No voiding difficulties otherwise stated. Significant generalized weakness Objective - Vital Signs Vital signs: Vital Signs Temp 99.2 F 02/25/17 04:00 Pulse 77 02/25/17 04:00 Resp 18 02/25/17 04:00 BP 156/94 02/25/17 04:00 Pulse Ox 96 02/25/17 04:00 Intake & Output 02/24/17 02/25/17 02/25/17 18:59 06:59 18:59 Intake Total 1370 925 Output Total 2 1602 Balance 1368 -677 Weight 52.8 kg Intake: IV 1000 925 Ampicillin-Sulbactam 1.5 100 100 gm In Sodium Chloride 0.9 % 50 ml @ 100 mls/hr IVPB Q8HR [facility] Rx#:[id number] Dextrose 5% in Water 1, 900 825 000 ml @ 75 mls/hr IV . [id number] [facility] Rx#:[id number] Oral 370 Output: Urine 1600 Stool 2 2 Other: Voiding Method Urinal Urinal # Voids 2 - Constitutional General appearance: Present: thin - EENT Eyes: Absent: abnormal pupil - Respiratory Respiratory: bilateral: rhonchi - Cardiovascular Rhythm: irregularly irregular Heart sounds: normal: S1, S2 - Gastrointestinal General gastrointestinal: Present: soft. Absent: tenderness - Labs CBC & Chem 7: 02/25/17 05:31 02/25/17 05:31 Labs: Abnormal Lab Results - Last 24 Hours (Table) 02/24/17 02/24/17 02/24/17 Range/Units 12:03 16:19 21:31 WBC (3.8-10.6) k/uL RBC (4.30-5.90) m/uL Hgb (13.0-17.5) gm/dL Hct (39.0-53.0) % Neutrophils # (1.3-7.7) k/uL Lymphocytes # (1.0-4.8) k/uL Sodium (137-145) mmol/L Chloride (98-107) mmol/L POC Glucose (mg/dL) 117 H 169 H 115 H (75-99) mg/dL Total Protein (6.3-8.2) g/dL Albumin (3.5-5.0) g/dL 02/25/17 02/25/17 02/25/17 Range/Units 05:31 05:31 05:44 WBC 12.7 H (3.8-10.6) k/uL RBC 3.10 L (4.30-5.90) m/uL Hgb 9.7 L (13.0-17.5) gm/dL Hct 29.9 L (39.0-53.0) % Neutrophils # 11.6 H (1.3-7.7) k/uL Lymphocytes # 0.4 L (1.0-4.8) k/uL Sodium 128 L (137-145) mmol/L Chloride 89 L (98-107) mmol/L POC Glucose (mg/dL) 64 L (75-99) mg/dL Total Protein 5.9 L (6.3-8.2) g/dL Albumin 3.3 L (3.5-5.0) g/dL Assessment and Plan (1) Pneumothorax Status: Acute (2) Rib fracture Status: Acute (3) Opiate dependence Status: Acute (4) COPD (chronic obstructive pulmonary disease) Status: Acute (5) DJD (degenerative joint disease) Status: Acute Plan: Discharge planning for possible rehab is noted. Element of COPD, which is slowly stabilizing. Generalized weakness. Atrial fibrillation with RVR CMP in a.m. Continue steroids with D5.
[2017-02-25] MEDS: oxyCODONE-APAP 5-325MG 1 EACH TAB PO PRN ×3 (08:28→20:22)
[2017-02-25] MEDS: HEPARIN SODIUM,PORCINE 5,000 UNIT/ML 1 ML VIAL SQ SCH ×3 (08:30→23:29)
[2017-02-25] MEDS: METOPROLOL TARTRATE 50 MG TAB PO SCH ×2 (08:30→20:22)
[2017-02-25] MEDS: LIDOCAINE 5% PATCH TOPICAL SCH (08:30)
[2017-02-25] MEDS: DOCUSATE 100 MG CAP PO SCH (08:30)
[2017-02-25] MEDS: LISINOPRIL 10 MG TAB PO SCH ×2 (08:31→20:22)
[2017-02-25] MEDS: amLODIPine 5 MG TAB PO SCH (08:32)
[2017-02-25] MEDS: IPRATROPIUM-ALBUTEROL 3 ML NEB INHALATION SCH ×4 (08:59→20:44)
[2017-02-25] MEDS: BUDESONIDE 0.5 MG/2 ML NEBU INHALATION SCH ×2 (08:59→20:44)
--- NOTE | 2017-02-25 09:04 | P.PN ---
Subjective Principal diagnosis: Right hydropneumothorax, status post right sided rib fractures, status post right pleural chest tube removal at [facility]. POD #6 placement of right pleural thoravent secondary to increasing pneumothorax , status post removal yesterday. Patient currently sitting up in bed in no apparent distress. Complains of mild shortness of breath. Objective - Vital Signs Vital signs: Vital Signs Temp 99.2 F 02/25/17 04:00 Pulse 77 02/25/17 04:00 Resp 18 02/25/17 04:00 BP 156/94 02/25/17 04:00 Pulse Ox 96 02/25/17 04:00 Intake & Output 02/24/17 02/25/17 02/25/17 18:59 06:59 18:59 Intake Total 1370 925 Output Total 2 1602 Balance 1368 -677 Weight 52.8 kg Intake: IV 1000 925 Ampicillin-Sulbactam 1.5 100 100 gm In Sodium Chloride 0.9 % 50 ml @ 100 mls/hr IVPB Q8HR [facility] Rx#:[id number] Dextrose 5% in Water 1, 900 825 000 ml @ 75 mls/hr IV . [id number] [facility] Rx#:[id number] Oral 370 Output: Urine 1600 Stool 2 2 Other: Voiding Method Urinal Urinal # Voids 2 - Constitutional General appearance: Present: cooperative, disheveled, no acute distress - Respiratory Details: Lungs sounds diminished bilaterally. Respirations even, nonlabored. Currently on room air with oxygen saturation 96%. - Cardiovascular Details: S1, S2 present. Irregular, tachycardia rate and rhythm currently. A. fib RVR on telemetry. Was normal sinus rhythm most of the night with bursts of A. fib RVR. - Gastrointestinal Gastrointestinal Comment(s): Abdomen soft, nontender, nondistended. Active bowel sounds 4 quadrants. Tolerating diet. - Genitourinary Genitourinary Comment(s): Voiding clear, yellow urine. - Integumentary Integumentary Comment(s): Anterior chest wall covered with dry intact dressing post Thora vent removal - Musculoskeletal Musculoskeletal: Present: gait normal, strength equal bilaterally - Psychiatric Psychiatric: Present: A&O x's 3, appropriate affect, intact judgment & insight - Allied health notes Allied health notes reviewed: nursing - Labs CBC & Chem 7: 02/25/17 05:31 02/25/17 05:31 Labs: Abnormal Lab Results - Last 24 Hours (Table) 02/24/17 02/24/17 02/24/17 Range/Units 12:03 16:19 21:31 WBC (3.8-10.6) k/uL RBC (4.30-5.90) m/uL Hgb (13.0-17.5) gm/dL Hct (39.0-53.0) % Neutrophils # (1.3-7.7) k/uL Lymphocytes # (1.0-4.8) k/uL Sodium (137-145) mmol/L Chloride (98-107) mmol/L POC Glucose (mg/dL) 117 H 169 H 115 H (75-99) mg/dL Total Protein (6.3-8.2) g/dL Albumin (3.5-5.0) g/dL 02/25/17 02/25/17 02/25/17 Range/Units 05:31 05:31 05:44 WBC 12.7 H (3.8-10.6) k/uL RBC 3.10 L (4.30-5.90) m/uL Hgb 9.7 L (13.0-17.5) gm/dL Hct 29.9 L (39.0-53.0) % Neutrophils # 11.6 H (1.3-7.7) k/uL Lymphocytes # 0.4 L (1.0-4.8) k/uL Sodium 128 L (137-145) mmol/L Chloride 89 L (98-107) mmol/L POC Glucose (mg/dL) 64 L (75-99) mg/dL Total Protein 5.9 L (6.3-8.2) g/dL Albumin 3.3 L (3.5-5.0) g/dL - Imaging and Cardiology Chest x-ray: report reviewed, image reviewed Assessment and Plan (1) Pneumothorax, right Status: Acute (2) Tobacco dependence Status: Acute (3) Rib fracture Status: Acute Plan: 1. Thoravent removed yesterday. Chest x-ray reviewed. 2. Encourage incentive spirometry use. 3. Encourage smoking cessation. 4. Increase activity, but to chair. 5. GI for/DVT prophylaxis. 6. Antibiotic/steroid management per pulmonology. 7. Comorbid medical conditions to be treated per primary service. Dr. Atkinson aware of A. fib RVR. 8. Will continue to see as needed. Time with Patient: Greater than 30
[2017-02-25] MEDS: DEXTROSE 5%-0.45% NACL 1,000 ML IV SCH ×2 (09:30→20:23)
[2017-02-25] MEDS: AMPICILLIN-SULBACTAM 1.5 GM in SODIUM CHLORIDE 0.9% 50 ML IVPB SCH ×3 (09:50→23:29)
[2017-02-25] MEDS: predniSONE 20 MG TAB PO SCH (10:52)
[2017-02-25 12:11] LABS: Glucose,Whole Blood 101 mg/dL (75-99)
--- NOTE | 2017-02-25 14:06 | P.PN ---
Subjective Principal diagnosis: Pneumothorax, flail chest Patient seen and examined. Patient states his breathing is a little bit better. He is still having significant pain with exertion. He states his appetite has decreased and he has not been eating very much. He states he did get out of bed today to the chair. Objective - Vital Signs Vital signs: Vital Signs Temp 101 F H 02/25/17 10:58 Pulse 88 02/25/17 12:19 Resp 18 02/25/17 10:58 BP 156/71 02/25/17 10:58 Pulse Ox 98 02/25/17 10:58 Intake & Output 02/24/17 02/25/17 02/25/17 18:59 06:59 18:59 Intake Total 1370 925 Output Total 2 1602 Balance 1368 -677 Weight 52.8 kg Intake: IV 1000 925 Ampicillin-Sulbactam 1.5 100 100 gm In Sodium Chloride 0.9 % 50 ml @ 100 mls/hr IVPB Q8HR [facility] Rx#:[id number] Dextrose 5% in Water 1, 900 825 000 ml @ 75 mls/hr IV . [id number] [facility] Rx#:[id number] Oral 370 Output: Urine 1600 Stool 2 2 Other: Voiding Method Urinal Urinal Urinal # Voids 2 - Exam Gen.: Patient is alert and oriented 3, no acute distress Cardiovascular: Regular rate and rhythm, S1/S2 Lungs: Coarse breath sounds bilaterally Abdomen: Soft nontender nondistended positive bowel sounds Extremities: No edema - Labs CBC & Chem 7: 02/25/17 05:31 02/25/17 05:31 Labs: Abnormal Lab Results - Last 24 Hours (Table) 02/24/17 02/24/17 02/25/17 Range/Units 16:19 21:31 05:31 WBC 12.7 H (3.8-10.6) k/uL RBC 3.10 L (4.30-5.90) m/uL Hgb 9.7 L (13.0-17.5) gm/dL Hct 29.9 L (39.0-53.0) % Neutrophils # 11.6 H (1.3-7.7) k/uL Lymphocytes # 0.4 L (1.0-4.8) k/uL Sodium (137-145) mmol/L Chloride (98-107) mmol/L POC Glucose (mg/dL) 169 H 115 H (75-99) mg/dL Total Protein (6.3-8.2) g/dL Albumin (3.5-5.0) g/dL 02/25/17 02/25/17 02/25/17 Range/Units 05:31 05:44 12:10 WBC (3.8-10.6) k/uL RBC (4.30-5.90) m/uL Hgb (13.0-17.5) gm/dL Hct (39.0-53.0) % Neutrophils # (1.3-7.7) k/uL Lymphocytes # (1.0-4.8) k/uL Sodium 128 L (137-145) mmol/L Chloride 89 L (98-107) mmol/L POC Glucose (mg/dL) 64 L 101 H (75-99) mg/dL Total Protein 5.9 L (6.3-8.2) g/dL Albumin 3.3 L (3.5-5.0) g/dL Assessment and Plan Plan: Status post fall with multiple right-sided rib fractures Flail chest Right [place]-pneumothorax - complex/loculated Acute exacerbation of COPD Acute hypoxic respiratory failure Aspiration pneumonia, now improving Elevated right hemidiaphragm Chronic kidney disease stage III Alcoholism Active tobacco abuse Anemia Hyponatremia O2 to maintain saturation greater than or equal to 90% Pain control Pulmicort Steroid taper Duo nebs PT and OT Incentive spirometry and pulmonary hygiene GI and DVT prophylaxis
[2017-02-25 17:25] LABS: Glucose,Whole Blood 155 mg/dL (75-99)
[2017-02-25] MEDS: ATORVASTATIN 10 MG TAB PO SCH (20:23)
[2017-02-25 20:28] LABS: Glucose,Whole Blood 174 mg/dL (75-99)
[2017-02-26] MEDS: oxyCODONE-APAP 5-325MG 1 EACH TAB PO PRN ×2 (02:10→22:25)
[2017-02-26 06:01] LABS: Glucose,Whole Blood 89 mg/dL (75-99)
[2017-02-26] MEDS: INSULIN LISPRO (humaLOG) 300 UNIT/3 ML VIAL SQ SCH ×4 (06:13→22:15)
[2017-02-26] MEDS: PANTOPRAZOLE 40 MG TABLET PO SCH (06:30)
[2017-02-26 07:04] LABS: ALT 36 U/L (21-72); AST 28 U/L (17-59); Alkaline Phosphatase 61 U/L (38-126); Anion Gap 7 mmol/L; Blood Urea Nitrogen 17 mg/dL (9-20); Calcium 8.1 mg/dL (8.4-10.2); Carbon Dioxide 30 mmol/L (22-30); Chloride 87 mmol/L (98-107); Glucose 87 mg/dL (74-99); Non-African American GFR(MDRD) >60 (>60 ml/min/1.73 sqM); Potassium 3.7 mmol/L (3.5-5.1); Sodium 124 mmol/L (137-145); Total Bilirubin 0.7 mg/dL (0.2-1.3); Total Protein 5.4 g/dL (6.3-8.2)
[2017-02-26] MEDS: AMPICILLIN-SULBACTAM 1.5 GM in SODIUM CHLORIDE 0.9% 50 ML IVPB SCH ×3 (08:11→23:08)
[2017-02-26] MEDS: HEPARIN SODIUM,PORCINE 5,000 UNIT/ML 1 ML VIAL SQ SCH ×2 (08:12→16:12)
[2017-02-26] MEDS: LIDOCAINE 5% PATCH TOPICAL SCH (08:13)
[2017-02-26] MEDS: amLODIPine 5 MG TAB PO SCH (08:13)
[2017-02-26] MEDS: DOCUSATE 100 MG CAP PO SCH (08:13)
[2017-02-26] MEDS: METOPROLOL TARTRATE 50 MG TAB PO SCH ×2 (08:13→22:26)
[2017-02-26] MEDS: predniSONE 20 MG TAB PO SCH (08:13)
[2017-02-26] MEDS: DEXTROSE 5%-0.45% NACL 1,000 ML IV SCH (08:15)
[2017-02-26] MEDS: IPRATROPIUM-ALBUTEROL 3 ML NEB INHALATION SCH ×4 (08:56→20:24)
[2017-02-26] MEDS: BUDESONIDE 0.5 MG/2 ML NEBU INHALATION SCH ×2 (08:56→20:24)
[2017-02-26] MEDS: LISINOPRIL 10 MG TAB PO SCH ×2 (09:47→22:26)
[2017-02-26 12:03] LABS: Glucose,Whole Blood 111 mg/dL (75-99)
[2017-02-26] MEDS: ACETAMINOPHEN TAB 325 MG TAB PO PRN ×2 (13:57→22:25)
--- NOTE | 2017-02-26 14:58 | PN ---
DATE OF SERVICE: 02/26/2017 HISTORY OF PRESENT ILLNESS: Patient is an 81-year-old male who initially came in with problems with right-sided rib fractures with flail chest, after having problems with fall at home. He does have a significant history of alcohol abuse. He required right-sided pigtail catheter for pneumothorax. Patient is seen today. He is doing relatively well. He states that he thinks he actually might be able to be discharged home tomorrow. He resides with his . He denies any specific problems with his breathing. He denies any chest pain. He denies any nausea, vomiting, diarrhea, or constipation at this time. He has been able to eat okay. He states that he has been up moving around in the room. He has sat in the chair. He does have a dressing to the right upper chest. On physical examination, vital signs show temperature 101.7, heart rate 84, respiratory rate 18, blood pressure is 144/101, oxygen saturation on room air is 94%. LABS: Sodium is 124, potassium is 3.7, chloride 87, carbon dioxide 30, BUN 17, creatinine is 1. Glucose 111. Calcium 8.1, total bilirubin 0.7, AST 28, ALT 36, alkaline phosphatase 61, total protein 5.4. Albumin 2.8. GENERAL: He is an 81-year-old male who appears in no acute distress at this time. HEENT: Pupils are reactive. Mucous membranes slightly dry. Neck is supple. Trach is midline. Lung sounds are diminished, but coarse. CARDIOVASCULAR: S1 and S2 is heard, regular. Abdomen is soft, nontender. Bowel sounds are heard. Extremities with no edema. Skin is very dry and scaly. NEUROLOGIC: He appears awake, alert. IMPRESSION: 1. Status post fall with multiple right-sided rib fractures. 2. Flailed chest. 3. Right hydropneumothorax complex/loculated. 4. Acute exacerbation of chronic obstructive pulmonary disease. 5. Acute hypoxic respiratory failure. 6. Aspiration pneumonia, improved. 7. Elevated right hemidiaphragm. 8. Chronic kidney disease stage III. 9. Alcoholism. 10. Nicotine dependence. 11. Anemia. 12. Hyponatremia. 13. Febrile. PLAN: Continue patient on present medications which have been reviewed. Increase activity as tolerated. Continue with GI and DVT prophylaxis. Continue with oxygen to keep sats 90% or better. Continue with smoking cessation. Would recommend ECF for rehab. Continue antibiotics. Continue nebulizer treatments. Will continue to follow patient with you. Will continue with supportive care.
[2017-02-26] MEDS: SODIUM CHLORIDE 0.9% 1,000 ML IV SCH (16:12)
[2017-02-26 17:21] LABS: Glucose,Whole Blood 150 mg/dL (75-99)
[2017-02-26 21:10] LABS: Glucose,Whole Blood 75 mg/dL (75-99)
[2017-02-26] MEDS ORDERED: ENOXAPARIN 60 MG/0.6 ML SYRINGE SQ STA (21:52)
[2017-02-26] MEDS: ATORVASTATIN 10 MG TAB PO SCH (22:26)
--- NOTE | 2017-02-26 23:05 | P.PN ---
Subjective Principal diagnosis: New onset atrial fibrillation. This is a continual progress note an 81-year-old white male essentially admitted for spontaneous pneumothorax which took a long time to resolve with multiple chest tube placements over 2 hospitalizations. The patient is still somewhat weak. Rehabilitation was counseled that and states that he appear poor candidate. He has developed new onset atrial fibrillation in the last days and we will check echocardiogram recently done. Objective - Vital Signs Vital signs: Vital Signs Temp 101.4 F H 02/26/17 20:00 Pulse 111 H 02/26/17 20:00 Resp 18 02/26/17 20:00 BP 143/67 02/26/17 20:00 Pulse Ox 95 02/26/17 20:00 Intake & Output 02/26/17 02/26/17 02/27/17 06:59 18:59 06:59 Intake Total 650 550 Output Total 400 1100 Balance 250 -550 Weight 50.4 kg Intake: IV 650 50 Ampicillin-Sulbactam 1.5 50 50 gm In Sodium Chloride 0.9 % 50 ml @ 100 mls/hr IVPB Q8HR [facility] Rx#:[id number] Dextrose 5% in Water 1, 600 000 ml @ 75 mls/hr IV . [id number] [facility] Rx#:[id number] Intake, IV Titration 500 Amount Dextrose 5%-0.45% NaCl 1, 500 000 ml @ 75 mls/hr IV . [id number] [facility] Rx#:[id number] Output: Urine 400 1100 Other: Voiding Method Urinal Urinal # Bowel Movements 0 - Constitutional General appearance: Present: thin - EENT Eyes: Absent: abnormal pupil - Respiratory Respiratory: bilateral: rhonchi - Cardiovascular Rhythm: irregularly irregular Heart sounds: normal: S1, S2 - Gastrointestinal General gastrointestinal: Present: soft. Absent: tenderness - Musculoskeletal Musculoskeletal: Present: generalized weakness - Psychiatric Psychiatric: Present: A&O x's 3 - Labs CBC & Chem 7: 02/25/17 05:31 02/26/17 05:27 Labs: Abnormal Lab Results - Last 24 Hours (Table) 02/26/17 02/26/17 02/26/17 Range/Units 05:27 11:54 17:15 Sodium 124 L (137-145) mmol/L Chloride 87 L (98-107) mmol/L POC Glucose (mg/dL) 111 H 150 H (75-99) mg/dL Calcium 8.1 L (8.4-10.2) mg/dL Total Protein 5.4 L (6.3-8.2) g/dL Albumin 2.8 L (3.5-5.0) g/dL Assessment and Plan (1) Pneumothorax Status: Acute (2) Rib fracture Status: Acute (3) Opiate dependence Status: Acute (4) COPD (chronic obstructive pulmonary disease) Status: Acute (5) DJD (degenerative joint disease) Status: Acute Plan: We'll going consult cardiology. The patient most likely will need some form of anticoagulation given his paroxysmal atrial fibrillation. Prognosis is guarded secondary to his COPD and opiate dependence. Check CBC in a.m. Time with Patient: Less than 30
[2017-02-27] MEDS: MORPHINE SULFATE 2 MG/ML SYRINGE IVP PRN (00:16)
[2017-02-27] MEDS: ACETAMINOPHEN TAB 325 MG TAB PO PRN (05:12)
[2017-02-27] MEDS: SODIUM CHLORIDE 0.9% 1,000 ML IV SCH ×2 (05:12→18:13)
[2017-02-27] MEDS ORDERED: FUROSEMIDE 10 MG/ML 4 ML VIAL IV STA (05:57)
[2017-02-27] MEDS ORDERED: FUROSEMIDE 10 MG/ML 4 ML VIAL ONE (06:00)
[2017-02-27] MEDS: PANTOPRAZOLE 40 MG TABLET PO SCH (06:19)
--- NOTE | 2017-02-27 06:35 | XR ---
EXAM: XR Chest, 1 View CLINICAL HISTORY: Reason: Increasing dyspnea TECHNIQUE: Frontal view of the chest. COMPARISON: Test x-ray 02/25/2017. FINDINGS: Lungs: Worsening left perihilar airspace disease. Relatively stable right lower lung airspace disease. Pleural space: Slightly increased size of a small right pleural effusion. No large pneumothorax. Heart: Unremarkable. No cardiomegaly. Mediastinum: Unremarkable. Bones/joints: Multiple acute mildly displaced right-sided rib fractures. Soft tissues: Soft tissue air of the right chest wall. 3 mm density projecting over the right axilla; query foreign body. Upper abdomen: Suspected free air under the left hemidiaphragm. Please correlate clinically and if indicated, CT may be obtained for further evaluation. IMPRESSION: 1. Suspected free air under the left hemidiaphragm. Please correlate clinically and if indicated, CT may be obtained for further evaluation. 2. Worsening left perihilar airspace disease. 3. Relatively stable right lower lung airspace disease. 4. Slightly increased size of a small right pleural effusion. 5. Multiple acute mildly displaced right-sided rib fractures. No large pneumothorax. 6. Soft tissue air of the right chest wall. 7. 3 mm density projecting over the right axilla; query foreign body. [employer] 02/27/17 06:48 Call Doctor Regarding Bowel Perforation with Free Air, called Dr. Atkinson on 02/27 06:48 (-04:00)
[2017-02-27 06:38] LABS: Glucose,Whole Blood 85 mg/dL (75-99)
[2017-02-27] MEDS: INSULIN LISPRO (humaLOG) 300 UNIT/3 ML VIAL SQ SCH ×4 (06:49→23:19)
[2017-02-27] MEDS: IPRATROPIUM-ALBUTEROL 3 ML NEB INHALATION SCH ×4 (08:36→19:53)
[2017-02-27] MEDS: BUDESONIDE 0.5 MG/2 ML NEBU INHALATION SCH ×2 (08:36→19:53)
--- NOTE | 2017-02-27 08:54 | CT ---
EXAMINATION TYPE: CT abdomen pelvis wo con DATE OF EXAM: 02/27/2017 7:44 AM COMPARISON: NONE HISTORY: 81-year-old male Free air noted at left hemidiaphragm CT DLP: 579 mGycm. Automated exposure control for dose reduction was used. TECHNIQUE: Contiguous axial scanning of the abdomen and pelvis without IV contrast. Coronal and sagit lamin reconstructions performed. FINDINGS: Coronary vessel calcifications and dense mitral annular calcifications. Heart upper limits of normal in size without pericardial effusion. Partially visualized nonenlarged and mildly enlarged mediastinal lymph nodes measuring up to 1.2 cm p recarinal region. There is patchy perihilar bronchovascular groundglass and airspace disease in the r ight lower lobe and also dependently within the left lower lobe. Couple pulmonary nodules in the righ t lower lobe measuring up to 1 cm. Trace pleural effusions. There appears to be infrahepatic ascites fluid. Rounded 2.9 cm soft tissue density projecting in this region, axial image 33, coronal image 51 is discrete from the adjacent right adrenal gland and right kidney. There appears to be prominent loop of splenic flexure projecting below the left hemidiaphragm account ing for the radiographic findings. No clear evidence for free intraperitoneal air. There is mild abdominopelvic ascites Mild diffuse thickening of the adrenal glands, difficult to exclude a low density nodule, probable ad renal adenoma on the left. There is mild right-sided pelvocaliectasis and bilateral renal hypodense lesions, too small for accur ate CT characterization, cysts. The larger hypodense lesion in the left kidney measures 3.9 cm with d ensity compatible with a cyst. Gallbladder not clearly visualized. Spleen and atrophic pancreas show no gross quality by noncontrast CT. There is diffuse anasarca type changes with edema in the subcutaneous fat and intra-abdominal fat. Th ere bladder is distended. Rectum is distended up to 6.4 cm one moderate pelvic ascites. Segmental areas of ectasia of the abdominal aorta measuring up to 2.9 cm upper abdominal aorta and 1. 9 cm lower abdominal aorta with moderate to severe atherosclerotic calcifications throughout Bones: Posterior lumbar fusion hardware L4-L5. The left L5 transpedicular screw is laterally located and ext ends outside of the bone. Multiple mildly displaced right-sided rib fractures and involving the defect through 11th ribs. There are segmental fractures of the sixth, seventh, eighth, ninth, and 10th ribs. IMPRESSION: 1. There is a prominent air-filled splenic flexure interposed below the left hemidiaphragm which see ms to account for the radiographic findings. No clear evidence for free air. 2. Numerous acute fractures of right-sided ribs. Segmental fractures involving the 6th -10th ribs. C orrelate for any clinical symptoms of FLAIL CHEST. 3. Given these multiple rib fractures, a 2.9 cm soft tissue density area along the inferior right li jami lobe could represent focal subcapsular hematoma especially given adjacent free fluid. There is ov erall mild to moderate abdominopelvic ascites. Correlate as to any previous trauma workup. Also, asim elate with patient's hemoglobin levels. 4. Bilateral lower lobe areas of consolidation. Differential considerations include pneumonia, aspir ation pneumonitis, and pulmonary contusions. Given nodular areas measuring up to 1 cm on the right, t hree-month follow-up exam recommended to exclude persisting pulmonary nodules. 5. Note that the left L5 transpedicular screw extends laterally outside of the L5 vertebral body. Th is is probably chronic and can be correlated with any outside prior exams.
[2017-02-27] MEDS: AMPICILLIN-SULBACTAM 1.5 GM in SODIUM CHLORIDE 0.9% 50 ML IVPB SCH ×3 (09:27→23:16)
[2017-02-27] MEDS: LIDOCAINE 5% PATCH TOPICAL SCH (09:28)
[2017-02-27] MEDS: METOPROLOL TARTRATE 50 MG TAB PO SCH ×3 (09:28→23:18)
[2017-02-27] MEDS: predniSONE 20 MG TAB PO SCH ×2 (09:28→15:45)
[2017-02-27] MEDS: LISINOPRIL 10 MG TAB PO SCH ×2 (09:29→23:18)
[2017-02-27] MEDS: amLODIPine 5 MG TAB PO SCH (09:29)
[2017-02-27] MEDS: DOCUSATE 100 MG CAP PO SCH (10:06)
--- NOTE | 2017-02-27 11:41 | XR ---
EXAMINATION TYPE: XR chest 1V portable DATE OF EXAM: 02/25/2017 7:11 AM COMPARISON: 02/24/2017 HISTORY: Chest tube removal TECHNIQUE: Single frontal view of the chest is obtained. FINDINGS: Chest tube is been removed with persistent consolidation and pleural effusion multiple dis placed right-sided rib fractures with diffuse subcutaneous emphysema. No sizable pneumothorax. IMPRESSION: 1. No sizable pneumothorax post chest tube removal.
[2017-02-27 11:49] LABS: Glucose,Whole Blood 52 mg/dL (75-99)
--- NOTE | 2017-02-27 11:51 | P.CRDCN ---
History of Present Illness Consult date: 02/27/17 History of present illness: This is a pleasant 81-year-old gentleman with a past medical history significant for COPD with no prior cardiac history who never seen a area safety manager in the past was admitted to the hospital after he fell and fractured the ribs on the right side of the chest and developed pneumothorax. The patient had prolonged hospital stay because the pneumothorax was not resolving. We get involved in the care of the patient because during his hospitalization he has been experiencing episodes of tachycardia. We get consulted regarding atrial fibrillation. Further evaluation of the rhythm strip it showed what it seems to be multifocal atrial tachycardia rather than atrial fibrillation. The patient denies having any chest pain or discomfort but he continues to have shortness of breath. He is not experiencing any symptoms of heart racing or fluttering. Currently the patient is on metoprolol at 50 mg by mouth twice a day. Reviewing the telemetry showed that he has been in and out tachycardia which is consistent was MAT. I am going to increase the dose of metoprolol to 50 mg by mouth 3 times a day. Beside that I don't recommend any further cardiac workup. Past Medical History Past Medical History: COPD, GERD/Reflux, Renal Disease, Respiratory Disorder History of Any Multi-Drug Resistant Organisms: None Reported Past Surgical History: Back Surgery, Orthopedic Surgery Additional Past Surgical History / Comment(s): 5 back surgies, b/L shoulder surgies, Past Anesthesia/Blood Transfusion Reactions: No Reported Reaction Past Psychological History: No Psychological Hx Reported Smoking Status: Current every day smoker Past Alcohol Use History: Abuse Past Drug Use History: None Reported - Past Family History Father Family Medical History: No Reported History Mother Family Medical History: Unable to Obtain Medications and Allergies Home Medications Medication Instructions Recorded Confirmed Type Albuterol Inhaler [Ventolin Hfa 1 - 2 puff INHALATION RT-Q6H PRN 02/16/17 History Inhaler] Amitriptyline HCl [Elavil] 100 mg PO HS 02/16/17 02/16/17 History Lisinopril [Zestril] 5 mg PO BID 02/16/17 02/16/17 History Metoprolol Tartrate [Lopressor] 50 mg PO BID 02/16/17 02/16/17 History Omeprazole 40 mg PO DAILY 02/16/17 02/16/17 History Simvastatin [Zocor] 20 mg PO HS 02/16/17 02/16/17 History Terazosin HCl [Hytrin] 10 mg PO HS 02/16/17 02/16/17 History oxyCODONE-APAP 10-325MG [Percocet 1 tab PO Q4H PRN 02/16/17 02/16/17 History 10-325 mg] Allergies Allergy/AdvReac Type Severity Reaction Status Date / Time No Known Allergies Allergy Unverified 02/16/17 19:59 Physical Exam Vitals: Vital Signs Temp Pulse Pulse Resp BP BP Pulse Ox 02/27/17 11:43 96 14 02/27/17 08:52 96 14 02/27/17 08:37 96 14 02/27/17 08:00 100.7 F H 60 18 151/85 96 02/27/17 06:50 100.6 F H 87 18 174/84 97 02/27/17 05:52 108 H 18 197/86 92 L 02/27/17 05:05 101.9 F H 96 18 176/84 97 02/27/17 04:00 100 F H 68 18 174/81 94 L 02/27/17 00:00 100.2 F H 101 H 18 136/80 96 02/26/17 20:00 101.4 F H 111 H 18 143/67 95 02/26/17 16:00 100.1 F H 86 80 18 164/76 98 02/26/17 15:51 86 02/26/17 14:32 100 F H 02/26/17 12:07 84 02/26/17 12:00 101 F H 91 18 181/79 97 02/26/17 11:56 84 Intake and Output 02/26/17 02/27/17 02/27/17 22:59 06:59 14:59 Intake Total 120 425 Output Total 300 280 250 Balance -180 145 -250 Intake: IV 50 Ampicillin-Sulbactam 1.5 50 gm In Sodium Chloride 0.9 % 50 ml @ 100 mls/hr IVPB Q8HR [facility] Rx#:[id number] Intake, IV Titration 375 Amount Sodium Chloride 0.9% 1, 375 000 ml @ 75 mls/hr IV . [id number] [facility] Rx#:[id number] Oral 120 Output: Urine 300 280 250 Other: Voiding Method Urinal Urinal # Voids 1 # Bowel Movements 0 1 Weight 50.7 kg - Constitutional General appearance: no acute distress - Respiratory Respiratory: bilateral: diminished - Cardiovascular Rhythm: regular Heart sounds: normal: S1, S2 Results 02/25/17 05:31 02/26/17 05:27 Current Medications Generic Name Dose Route Start Last Admin Trade Name Freq PRN Reason Stop Dose Admin Acetaminophen 650 mg 02/26/17 13:47 02/27/17 05:12 Tylenol Tab PO 650 mg Q6HR PRN Administration Fever and/ or Pain Albuterol/Ipratropium 3 ml 02/16/17 20:37 Duoneb 0.5 Mg-3 Mg/3 Ml Soln INHALATION RT-QID PRN Shortness Of Breath Or Wheezing Albuterol/Ipratropium 3 ml 02/17/17 08:00 02/27/17 11:43 Duoneb 0.5 Mg-3 Mg/3 Ml Soln INHALATION 3 ml RT-QID [facility] Administration Amlodipine Besylate 5 mg 02/20/17 13:00 02/27/17 09:29 Norvasc PO 5 mg DAILY [facility] Administration Atorvastatin Calcium 10 mg 02/16/17 23:45 02/26/17 22:26 Lipitor PO 10 mg HS [facility] Administration Budesonide 0.5 mg 02/17/17 08:00 02/27/17 08:36 Pulmicort INHALATION 0.5 mg RT-BID [facility] Administration Docusate Sodium 100 mg 02/22/17 09:00 02/27/17 10:06 Colace PO 100 mg DAILY [facility] Administration Ampicillin Sodium/Sulbactam 50 mls @ 100 mls/hr 02/17/17 00:00 02/27/17 09:27 Sodium 1.5 gm/ Sodium Chloride IVPB 100 mls/hr Q8HR [facility] Administration Sodium Chloride 1,000 mls @ 75 mls/hr 02/26/17 15:45 02/27/17 05:12 Saline 0.9% IV 75 mls/hr .[id number] [facility] Administration Insulin Human Lispro 0 unit 02/17/17 07:30 02/27/17 06:49 Humalog SQ Not Given ACHS [facility] Protocol Lidocaine 1 patch 02/17/17 09:00 02/27/17 09:28 Lidoderm TOPICAL 1 patch DAILY [facility] Administration Lisinopril 10 mg 02/20/17 21:00 02/27/17 09:29 Zestril PO 10 mg BID [facility] Administration Magnesium Hydroxide 2,400 mg 02/21/17 21:21 02/21/17 23:05 Milk Of Magnesia PO 2,400 mg ONCE PRN Administration Constipation Metoprolol Tartrate 50 mg 02/27/17 16:00 Lopressor PO TID [facility] Morphine Sulfate 2 mg 02/16/17 21:28 02/27/17 00:16 Morphine Sulfate (Inj) IVP 2 mg Q2H PRN Administration Pain Oxycodone/Acetaminophen 1 each 02/16/17 21:28 02/26/17 22:25 Percocet 5-325 PO 1 each Q4HR PRN Administration Pain Pantoprazole Sodium 40 mg 02/18/17 07:30 02/27/17 06:19 Protonix PO 40 mg [id number] [facility] Administration Prednisone 60 mg 02/21/17 09:00 02/27/17 09:28 PO 60 mg DAILY [facility] Administration Intake and Output 02/26/17 02/27/17 02/27/17 22:59 06:59 14:59 Intake Total 120 425 Output Total 300 280 250 Balance -180 145 -250 Intake: IV 50 Ampicillin-Sulbactam 1.5 50 gm In Sodium Chloride 0.9 % 50 ml @ 100 mls/hr IVPB Q8HR [facility] Rx#:[id number] Intake, IV Titration 375 Amount Sodium Chloride 0.9% 1, 375 000 ml @ 75 mls/hr IV . [id number] [facility] Rx#:[id number] Oral 120 Output: Urine 300 280 250 Other: Voiding Method Urinal Urinal # Voids 1 # Bowel Movements 0 1 Weight 50.7 kg 02/25/17 05:31 02/26/17 05:27 Assessment and Plan Plan: Assessment #1 status post fall #2 possible flail chest and [place] #3 right sided pneumothorax #4 cardiac arrhythmia in the term of multifocal atrial tachycardia #5 COPD Plan #1 increase the dose of metoprolol to 50 mg by mouth 3 times a day #2 no need for any further cardiac workup #3 we'll watch the heart rhythm for additional 24 hour for any possible adjustment in the medications
[2017-02-27 12:05] LABS: Glucose,Whole Blood 57 mg/dL (75-99)
[2017-02-27 12:18] LABS: Glucose,Whole Blood 69 mg/dL (75-99)
[2017-02-27 12:20] LABS: Glucose,Whole Blood 62 mg/dL (75-99)
--- NOTE | 2017-02-27 12:27 | ECHOF ---
Referral Reason:irregular cardiac rhythm MEASUREMENTS -------- HEIGHT: 172.7 cm WEIGHT: 50.3 kg BP: 174/84 RVIDd: 2.1 cm (< 3.3) IVSd: 1.2 cm (0.6 - 1.1) LVIDd: 3.1 cm (3.9 - 5.3) LVPWd: 1.6 cm (0.6 - 1.1) IVSs: 1.5 cm LVIDs: 2.4 cm LVPWs: 1.8 cm LA Diam: 2.8 cm (2.7 - 3.8) LAESV Index (A-L): 32.85 ml/m Ao Diam: 3.6 cm (2.0 - 3.7) AV Cusp: 2.1 cm (1.5 - 2.6) MV EXCURSION: 11.974 mm (> 18.000) MV EF SLOPE: 38 mm/s (70 - 150) EPSS: 0.5 cm RAP: 5.00 mmHg RVSP: 46.26 mmHg FINDINGS -------- This was a technically good study. The left ventricular size is normal. There is moderate concentric left ventricular hypertrophy. Overall left ventricular systolic function is normal with, an EF between 60 - 65 %. The right ventricle is normal in size and function. LA is midly dilated 29-33ml/m2. The right atrium is normal in size. There is mild aortic valve sclerosis. The mitral valve leaflets are mild to moderately thickened. Moderate mitral annular calcification present. There is trace to mild mitral regurgitation. Mild tricuspid regurgitation present. There is mild to moderate pulmonary hypertension. The right ventricular systolic pressure, as measured by Doppler, is 46.26mmHg. The pulmonic valve is normal. The aortic root size is normal. Normal inferior vena cava with normal inspiratory collapse consistent with estimated right atrial pressure of 5 mmHg. The pericardium is normal. CONCLUSIONS -------- 1. This was a technically good study. 2. There is trace to mild mitral regurgitation. 3. Mild tricuspid regurgitation present. 4. There is mild to moderate pulmonary hypertension. 5. The right ventricular systolic pressure, as measured by Doppler, is 46.26mmHg. 6. The pulmonic valve is normal. 7. The aortic root size is normal. 8. Normal inferior vena cava with normal inspiratory collapse consistent with estimated right atrial pressure of 5 mmHg. 9. The pericardium is normal. 10. The left ventricular size is normal. 11. There is moderate concentric left ventricular hypertrophy. 12. Overall left ventricular systolic function is normal with, an EF between 60 - 65 %. 13. The right ventricle is normal in size and function. 14. LA is midly dilated 29-33ml/m2. 15. There is mild aortic valve sclerosis. 16. The mitral valve leaflets are mild to moderately thickened. 17. Moderate mitral annular calcification present. BOARD CERTIFIED ORTHODONTIST: Darlene Vega RDCS
--- NOTE | 2017-02-27 12:49 | P.PN ---
Subjective Principal diagnosis: Continuing care. This is a continue Progress note 81-year-old white male essentially admitted for pneumothorax. This has not stabilized but he is developing paroxysmal atrial tachycardia with irregular response at times. Every time he tries to become more active, he becomes tachycardic. Cardiology is therefore consult to. I'm somewhat reluctant to consider anticoagulation secondary to the fact that he has multiple rib fractures and is significant fall risk. We will consult discharge planning for possible ECF. At this time, the above patient states that he is somewhat a poor candidate secondary to his to his poor respiratory capacity Otherwise, we went ahead and did a chest x-ray yesterday and report does show possible free air on the left hemidiaphragm. Surgery is now consulted and CT scan of the abdomen is pending. Objective - Vital Signs Vital signs: Vital Signs Temp 100.7 F H 02/27/17 08:00 Pulse 96 02/27/17 11:54 Resp 14 02/27/17 11:54 BP 151/85 02/27/17 08:00 Pulse Ox 96 02/27/17 08:00 Intake & Output 02/26/17 02/27/17 02/27/17 18:59 06:59 18:59 Intake Total 550 545 Output Total 1100 280 250 Balance -550 265 -250 Weight 50.7 kg Intake: IV 50 50 Ampicillin-Sulbactam 1.5 50 50 gm In Sodium Chloride 0.9 % 50 ml @ 100 mls/hr IVPB Q8HR [facility] Rx#:[id number] Intake, IV Titration 500 375 Amount Dextrose 5%-0.45% NaCl 1, 500 000 ml @ 75 mls/hr IV . [id number] [facility] Rx#:[id number] Sodium Chloride 0.9% 1, 375 000 ml @ 75 mls/hr IV . [id number] [facility] Rx#:[id number] Oral 120 Output: Urine 1100 280 250 Other: Voiding Method Urinal # Voids 1 # Bowel Movements 0 1 - Constitutional General appearance: Present: thin - EENT Eyes: Absent: abnormal pupil - Respiratory Respiratory: bilateral: diminished - Cardiovascular Rhythm: irregularly irregular - Gastrointestinal General gastrointestinal: Present: soft. Absent: tenderness - Integumentary Integumentary: Present: normal - Labs CBC & Chem 7: 02/25/17 05:31 05/09/17 05:27 Labs: Abnormal Lab Results - Last 24 Hours (Table) 02/26/17 02/27/17 02/27/17 Range/Units 17:15 11:47 12:04 POC Glucose (mg/dL) 150 H 52 L 57 L (75-99) mg/dL 02/27/17 02/27/17 Range/Units 12:17 12:19 POC Glucose (mg/dL) 69 L 62 L (75-99) mg/dL Assessment and Plan (1) Pneumothorax Status: Acute (2) Rib fracture Status: Acute (3) Opiate dependence Status: Acute (4) COPD (chronic obstructive pulmonary disease) Status: Acute (5) DJD (degenerative joint disease) Status: Acute
[2017-02-27 13:03] LABS: Glucose,Whole Blood 70 mg/dL (75-99)
--- NOTE | 2017-02-27 13:43 | P.PN ---
Subjective Principal diagnosis: Flail chest, pneumothorax Patient seen and examined. He states his pain is bad, but he is able to move from the chair to the bed. He even moved himself up in the bed and didn't appear to be in distress. He denies abdominal pain, N/V. He says he hasn't eaten because he has no appetite. Objective - Vital Signs Vital signs: Vital Signs Temp 99.4 F 02/27/17 12:00 Pulse 60 02/27/17 12:00 Resp 18 02/27/17 12:00 BP 159/83 02/27/17 12:00 Pulse Ox 94 L 02/27/17 12:00 Intake & Output 02/26/17 02/27/17 02/27/17 18:59 06:59 18:59 Intake Total 550 545 Output Total 1100 280 250 Balance -550 265 -250 Weight 50.7 kg Intake: IV 50 50 Ampicillin-Sulbactam 1.5 50 50 gm In Sodium Chloride 0.9 % 50 ml @ 100 mls/hr IVPB Q8HR [facility] Rx#:[id number] Intake, IV Titration 500 375 Amount Dextrose 5%-0.45% NaCl 1, 500 000 ml @ 75 mls/hr IV . [id number] [facility] Rx#:[id number] Sodium Chloride 0.9% 1, 375 000 ml @ 75 mls/hr IV . [id number] [facility] Rx#:[id number] Oral 120 Output: Urine 1100 280 250 Other: Voiding Method Urinal # Voids 1 # Bowel Movements 0 1 - Exam Gen.: Patient is alert and oriented 3, no acute distress Cardiovascular: Regular rate and rhythm, S1/S2 Lungs: Coarse breath sounds bilaterally Abdomen: Soft nontender nondistended positive bowel sounds Extremities: No edema - Labs CBC & Chem 7: 02/25/17 05:31 02/26/17 05:27 Labs: Abnormal Lab Results - Last 24 Hours (Table) 02/26/17 02/27/17 02/27/17 Range/Units 17:15 11:47 12:04 POC Glucose (mg/dL) 150 H 52 L 57 L (75-99) mg/dL 02/27/17 02/27/17 02/27/17 Range/Units 12:17 12:19 12:32 POC Glucose (mg/dL) 69 L 62 L 70 L (75-99) mg/dL Assessment and Plan Plan: Status post fall with multiple right-sided rib fractures Flail chest Right [place]-pneumothorax - complex/loculated Acute exacerbation of COPD Acute hypoxic respiratory failure Aspiration pneumonia, now improving Elevated right hemidiaphragm Chronic kidney disease stage III Alcoholism Active tobacco abuse Anemia Hyponatremia O2 to maintain saturation greater than or equal to 90% Pain control Pulmicort Steroid taper Duo nebs PT and OT Continue IVF 0.9NS @ 75 cc/hr Check CBC, BMP now Add D5 for hypoglycemia Consult dietitian Add Marinol for appetite Incentive spirometry and pulmonary hygiene GI and DVT prophylaxis
[2017-02-27 15:10] LABS: CH 31.7; CHCM 33.5; HGB 9.4 gm/dL (13.0-17.5); MCH 30.7 pg (25.0-35.0); MCHC 32.3 g/dL (31.0-37.0); Mean Platelet Volume 7.4; RBC 3.06 m/uL (4.30-5.90); RDW 13.9 % (11.5-15.5); WBC 10.3 k/uL (3.8-10.6)
[2017-02-27] MEDS: DEXTROSE 5%-0.9% NACL 1,000 ML IV SCH (15:21)
[2017-02-27 15:34] LABS: Anion Gap 12 mmol/L; Blood Urea Nitrogen 19 mg/dL (9-20); Carbon Dioxide 28 mmol/L (22-30); Chloride 86 mmol/L (98-107); Glucose 103 mg/dL (74-99); Non-African American GFR(MDRD) 58 (>60 ml/min/1.73 sqM); Sodium 126 mmol/L (137-145)
[2017-02-27] MEDS ORDERED: Potassium Replacement Protocol 1 EACH MISC MISCELLANE PRN ×2 (15:43→22:43)
[2017-02-27] MEDS: oxyCODONE-APAP 5-325MG 1 EACH TAB PO PRN (15:45)
[2017-02-27] MEDS: POTASSIUM CHLORIDE ER 20 MEQ TAB.ER PO SCH ×3 (16:11→23:32)
[2017-02-27] MEDS ORDERED: Magnesium Replacement Protocol 1 EACH MISC MISCELLANE PRN (16:18)
[2017-02-27 16:38] LABS: Glucose,Whole Blood 118 mg/dL (75-99)
[2017-02-27] MEDS: MEGESTROL 400 MG/10 ML CUP PO SCH (16:41)
[2017-02-27] MEDS: MAGNESIUM SULFATE-D5W PMX 1 GM in DEXTROSE/WATER 1 100ML.BAG IVPB SCH ×3 (16:41→20:12)
[2017-02-27] MEDS ORDERED: DRONABINOL 2.5 MG CAP PO SCH (17:30)
[2017-02-27 20:28] LABS: Glucose,Whole Blood 317 mg/dL (75-99)
[2017-02-27] MEDS: ATORVASTATIN 10 MG TAB PO SCH (23:18)
[2017-02-28] MEDS: POTASSIUM CHLORIDE ER 20 MEQ TAB.ER PO SCH (00:47)
[2017-02-28] MEDS: oxyCODONE-APAP 5-325MG 1 EACH TAB PO PRN ×2 (05:15→13:49)
[2017-02-28 06:00] LABS: Glucose,Whole Blood 102 mg/dL (75-99)
[2017-02-28] MEDS: INSULIN LISPRO (humaLOG) 300 UNIT/3 ML VIAL SQ SCH ×4 (06:26→22:17)
[2017-02-28] MEDS: SODIUM CHLORIDE 0.9% 1,000 ML IV SCH (06:27)
[2017-02-28] MEDS: PANTOPRAZOLE 40 MG TABLET PO SCH (06:53)
[2017-02-28] MEDS: IPRATROPIUM-ALBUTEROL 3 ML NEB INHALATION SCH ×4 (07:18→20:52)
[2017-02-28] MEDS: BUDESONIDE 0.5 MG/2 ML NEBU INHALATION SCH ×2 (07:18→20:52)
--- NOTE | 2017-02-28 07:58 | P.PN ---
Subjective Principal diagnosis: Respiratory failure. This is a continue present on a 1-year-old white male essentially admitted for flail chest and history of pneumothorax. From a thoracic standpoint he has been stabilizing and he is actually eating well today. Megace was started per dietary. No voiding symptoms. Otherwise, he is somewhat a poor rehab candidate secondary to element of COPD. Atrial tachycardia was also seen in this past week. Cardiology has also been consulted. Objective - Vital Signs Vital signs: Vital Signs Temp 98.2 F 02/28/17 00:00 Pulse 100 02/28/17 07:32 Resp 18 02/28/17 04:00 BP 159/74 02/28/17 04:00 Pulse Ox 96 02/28/17 04:00 Intake & Output 02/27/17 02/28/17 02/28/17 18:59 06:59 18:59 Intake Total 405 0 Output Total 500 225 Balance -95 -225 Weight 50.7 kg 50.1 kg Intake: IV 50 Ampicillin-Sulbactam 1.5 50 gm In Sodium Chloride 0.9 % 50 ml @ 100 mls/hr IVPB Q8HR [facility] Rx#:[id number] Oral 355 0 Output: Urine 500 225 Other: Voiding Method Urinal Urinal # Voids 1 # Bowel Movements 1 - Constitutional General appearance: Present: thin - EENT Eyes: Absent: abnormal pupil - Respiratory Respiratory: bilateral: diminished - Cardiovascular Rhythm: irregularly irregular Heart sounds: normal: S1, S2 - Gastrointestinal General gastrointestinal: Present: soft. Absent: tenderness - Neurologic Neurologic: Present: CNII-XII intact - Musculoskeletal Musculoskeletal: Present: generalized weakness - Labs CBC & Chem 7: 02/27/17 14:50 02/27/17 19:18 Labs: Abnormal Lab Results - Last 24 Hours (Table) 02/27/17 02/27/17 02/27/17 Range/Units 11:47 12:04 12:17 RBC (4.30-5.90) m/uL Hgb (13.0-17.5) gm/dL Hct (39.0-53.0) % Plt Count (150-450) k/uL Sodium (137-145) mmol/L Potassium (3.5-5.1) mmol/L Chloride (98-107) mmol/L Glucose (74-99) mg/dL POC Glucose (mg/dL) 52 L 57 L 69 L (75-99) mg/dL Calcium (8.4-10.2) mg/dL Magnesium (1.6-2.3) mg/dL 02/27/17 02/27/17 02/27/17 Range/Units 12:19 12:32 14:50 RBC 3.06 L (4.30-5.90) m/uL Hgb 9.4 L (13.0-17.5) gm/dL Hct 29.0 L (39.0-53.0) % Plt Count 143 L (150-450) k/uL Sodium (137-145) mmol/L Potassium (3.5-5.1) mmol/L Chloride (98-107) mmol/L Glucose (74-99) mg/dL POC Glucose (mg/dL) 62 L 70 L (75-99) mg/dL Calcium (8.4-10.2) mg/dL Magnesium (1.6-2.3) mg/dL 02/27/17 02/27/17 02/27/17 Range/Units 14:50 14:50 16:36 RBC (4.30-5.90) m/uL Hgb (13.0-17.5) gm/dL Hct (39.0-53.0) % Plt Count (150-450) k/uL Sodium 126 L (137-145) mmol/L Potassium 3.0 L* (3.5-5.1) mmol/L Chloride 86 L (98-107) mmol/L Glucose 103 H (74-99) mg/dL POC Glucose (mg/dL) 118 H (75-99) mg/dL Calcium 8.0 L (8.4-10.2) mg/dL Magnesium 1.3 L (1.6-2.3) mg/dL 02/27/17 02/27/17 02/28/17 Range/Units 19:18 20:27 05:59 RBC (4.30-5.90) m/uL Hgb (13.0-17.5) gm/dL Hct (39.0-53.0) % Plt Count (150-450) k/uL Sodium (137-145) mmol/L Potassium 3.1 L (3.5-5.1) mmol/L Chloride (98-107) mmol/L Glucose (74-99) mg/dL POC Glucose (mg/dL) 317 H 102 H (75-99) mg/dL Calcium (8.4-10.2) mg/dL Magnesium (1.6-2.3) mg/dL Assessment and Plan (1) Pneumothorax Status: Acute (2) Rib fracture Status: Acute (3) Opiate dependence Status: Acute (4) COPD (chronic obstructive pulmonary disease) Status: Acute (5) DJD (degenerative joint disease) Status: Acute Plan: Significant improvement in his overall status and prognosis. Discharge planning for probable temporary ECF placement. Check CMP and magnesium with element of hypomagnesiumia and hypokalemia. Possible discharge in next 24-48 hours. See orders otherwise.
[2017-02-28] MEDS: AMPICILLIN-SULBACTAM 1.5 GM in SODIUM CHLORIDE 0.9% 50 ML IVPB SCH ×3 (08:26→23:46)
[2017-02-28] MEDS: METOPROLOL TARTRATE 50 MG TAB PO SCH ×3 (08:28→22:09)
[2017-02-28] MEDS: amLODIPine 5 MG TAB PO SCH (08:28)
[2017-02-28] MEDS: DOCUSATE 100 MG CAP PO SCH (08:29)
[2017-02-28] MEDS: LISINOPRIL 10 MG TAB PO SCH ×2 (08:29→22:09)
[2017-02-28] MEDS: predniSONE 20 MG TAB PO SCH (08:29)
[2017-02-28] MEDS: MEGESTROL 400 MG/10 ML CUP PO SCH (08:30)
[2017-02-28] MEDS: LIDOCAINE 5% PATCH TOPICAL SCH (08:31)
[2017-02-28 11:57] LABS: Glucose,Whole Blood 220 mg/dL (75-99)
[2017-02-28] MEDS: DEXTROSE 5%-0.9% NACL 1,000 ML IV SCH (12:17)
[2017-02-28] MEDS: POTASSIUM CHLORIDE 10 MEQ, LIDOCAINE 2% INJ 10 MG in SODIUM CHLORIDE 0.9% 100 ML IVPB SCH ×2 (12:21→13:50)
--- NOTE | 2017-02-28 15:26 | P.PN ---
Subjective Principal diagnosis: Multifocal atrial tachycardia This is a pleasant 81-year-old gentleman with a past medical history significant for COPD with no prior cardiac history who never seen a geophysicist in the past was admitted to the hospital after he fell and fractured the ribs on the right side of the chest and developed pneumothorax. The patient had prolonged hospital stay because the pneumothorax was not resolving.We get involved in the care of the patient because during his hospitalization he has been experiencing episodes of tachycardia. We get consulted regarding atrial fibrillation. Further evaluation of the rhythm strip it showed what seems to be multifocal atrial tachycardia rather than atrial fibrillation.The patient denies having any chest pain or discomfort but he continues to have mild shortness of breath. He is not experiencing any symptoms of heart racing or fluttering. His dose of metoprolol tartrate was increased to 50 mg by mouth 3 times a day yesterday by Dr. Ravi. Heart rate is under much better control today. Objective - Vital Signs Vital signs: Vital Signs Temp 98.1 F 02/28/17 15:11 Pulse 86 02/28/17 15:11 Resp 18 02/28/17 15:11 BP 133/66 02/28/17 15:11 Pulse Ox 95 02/28/17 15:11 Intake & Output 02/27/17 02/28/17 02/28/17 18:59 06:59 18:59 Intake Total 405 0 1120 Output Total 500 225 200 Balance -95 -225 920 Weight 50.7 kg 50.1 kg Intake: IV 50 50 Ampicillin-Sulbactam 1.5 50 50 gm In Sodium Chloride 0.9 % 50 ml @ 100 mls/hr IVPB Q8HR [facility] Rx#:[id number] Intake, IV Titration 1070 Amount Ampicillin-Sulbactam 1.5 50 gm In Sodium Chloride 0.9 % 50 ml @ 100 mls/hr IVPB Q8HR [facility] Rx#:[id number] Dextrose 5%-0.9% NaCl 1, 320 000 ml @ 40 mls/hr IV . Q24H [facility] Rx#:[id number] Magnesium Sulfate-D5w Pmx 100 1 gm In Dextrose/Water 1 100ml.bag @ 100 mls/hr IVPB Q1H [facility] Rx#: [id number] Sodium Chloride 0.9% 1, 600 000 ml @ 75 mls/hr IV . [id number] [facility] Rx#:[id number] Oral 355 0 Output: Urine 500 225 200 Other: Voiding Method Urinal Urinal # Voids 1 1 # Bowel Movements 1 - Exam PHYSICAL EXAMINATION: HEENT: Head is atraumatic, normocephalic. Pupils equal, round. Neck is supple. There is no elevated jugular venous pressure. HEART EXAMINATION: Heart S1, S2 normal. No murmur or gallop heard. CHEST EXAMINATION: Lungs reveal diminished air entry to bilateral bases. ABDOMEN: Soft, nontender. Bowel sounds are heard. No organomegaly noted. EXTREMITIES: 2+ peripheral pulses with no evidence of peripheral edema and no calf tenderness noted. NEUROLOGIC patient is awake, alert and oriented -3. . - Labs CBC & Chem 7: 02/27/17 14:50 02/28/17 11:08 Labs: Abnormal Lab Results - Last 24 Hours (Table) 02/27/17 02/27/17 02/27/17 Range/Units 14:50 14:50 16:36 Sodium 126 L (137-145) mmol/L Potassium 3.0 L* (3.5-5.1) mmol/L Chloride 86 L (98-107) mmol/L Glucose 103 H (74-99) mg/dL POC Glucose (mg/dL) 118 H (75-99) mg/dL Calcium 8.0 L (8.4-10.2) mg/dL Magnesium 1.3 L (1.6-2.3) mg/dL 02/27/17 02/27/17 02/28/17 Range/Units 19:18 20:27 05:59 Sodium (137-145) mmol/L Potassium 3.1 L (3.5-5.1) mmol/L Chloride (98-107) mmol/L Glucose (74-99) mg/dL POC Glucose (mg/dL) 317 H 102 H (75-99) mg/dL Calcium (8.4-10.2) mg/dL Magnesium (1.6-2.3) mg/dL 02/28/17 02/28/17 Range/Units 11:08 11:54 Sodium (137-145) mmol/L Potassium 3.1 L (3.5-5.1) mmol/L Chloride (98-107) mmol/L Glucose (74-99) mg/dL POC Glucose (mg/dL) 220 H (75-99) mg/dL Calcium (8.4-10.2) mg/dL Magnesium (1.6-2.3) mg/dL Assessment and Plan Plan: Assessment and Plan Assessment #1 status post fall #2 possible flail chest and [place] #3 right sided pneumothorax #4 cardiac arrhythmia in the form of multifocal atrial tachycardia #5 COPD Plan We'll continue the patient on current dose of metoprolol tartrate. We will follow him along with you now on an as-needed basis only, please don't hesitate to call with any questions. DNP note has been reviewed, I agree with a documented findings and plan of care. Patient was seen and examined.
--- NOTE | 2017-02-28 16:46 | PN ---
DATE OF SERVICE: 02/28/2017 HISTORY OF PRESENT ILLNESS: The patient is an 81-year-old male who came in after having problems with right-sided rib fracture with flail chest after a fall at home. He had a right-sided pigtail catheter for pneumothorax, which has been removed. He denies any specific problems at this time with chest pain or breathing. No nausea, vomiting or diarrhea. Appetite has been okay. He has been seen by Cardiology and his medications have been adjusted due to his tachycardia. He has also had a recent echocardiogram which showed RVSP of 46.26 mmHg with an EF between 60% and 65%. On physical examination, vital signs show temperature 98.8, heart rate 96, respiratory rate 18, blood pressure 147/68. Oxygen saturation on room air is 95%. Labs show glucose of 220. Potassium 3.1. GENERAL: He is an 81-year-old male in no acute respiratory distress at this time. HEENT: Head is atraumatic, normocephalic. Pupils are equal and reactive. Mucous membranes are moist. NECK: Supple. Trachea is midline. Lung sounds coarse. CARDIOVASCULAR: S1, S2 heard, regular. ABDOMEN: Soft, nontender. EXTREMITIES: No edema. NEUROLOGIC: He is awake, alert. IMPRESSION: 1. Status post fall with multiple right-sided rib fractures. 2. Flail chest. 3. Right hydropneumothorax, complex, loculated. 4. Acute exacerbation of chronic obstructive pulmonary disease. 5. Acute on chronic hypoxic respiratory failure. 6. Aspiration pneumonia, improving. 7. Elevated right hemidiaphragm. 8. Chronic kidney disease, stage III. 9. Alcoholism. 10. Active tobacco abuse. 11. Anemia. 12. Hyponatremia. PLAN: Continue patient's medications as ordered and reviewed. Continue to increase activity. Would recommend placement. Continue with oxygen to keep saturations 90% or better. Continue with GI and DVT prophylaxis. Continue with smoking cessation and alcohol cessation. Relatively stable pulmonary-srivastava. Still weak. Increase oral intake. He has been started on Megace. Potassium has been replaced. Will continue with supportive care.
[2017-02-28 16:52] LABS: Glucose,Whole Blood 38 mg/dL (75-99)
[2017-02-28 16:52] LABS: Glucose,Whole Blood 43 mg/dL (75-99)
[2017-02-28 17:23] LABS: Glucose,Whole Blood 49 mg/dL (75-99)
[2017-02-28 17:43] LABS: Glucose,Whole Blood 38 mg/dL (75-99)
[2017-02-28 17:48] LABS: Anion Gap 4 mmol/L; Blood Urea Nitrogen 22 mg/dL (9-20); Calcium 7.8 mg/dL (8.4-10.2); Carbon Dioxide 30 mmol/L (22-30); Chloride 96 mmol/L (98-107); Glucose 59 mg/dL (74-99); Non-African American GFR(MDRD) >60 (>60 ml/min/1.73 sqM); Potassium 3.7 mmol/L (3.5-5.1); Sodium 130 mmol/L (137-145)
[2017-02-28 18:07] LABS: Glucose,Whole Blood 91 mg/dL (75-99)
[2017-02-28 22:08] LABS: Glucose,Whole Blood 136 mg/dL (75-99)
[2017-02-28] MEDS: ATORVASTATIN 10 MG TAB PO SCH (22:09)
[2017-03-01] MEDS: MORPHINE SULFATE 2 MG/ML SYRINGE IVP PRN ×4 (02:26→23:15)
[2017-03-01] MEDS: IPRATROPIUM-ALBUTEROL 3 ML NEB INHALATION PRN (03:52)
--- NOTE | 2017-03-01 04:16 | XR ---
INDICATION: Shortness of breath, low pulse ox COMPARISON: CXR 02/27/17 FINDINGS: Single frontal view of the chest is provided. There is continued worsening of left parahilar and lower lobe airspace opacity as well as increased in right basilar airspace opacity, concerning for progressive pneumonia. Heart size and pulmonary vascularity are normal. There is elevation of the right hemidiaphragm. There are multiple acute right-sided rib fractures again demonstrated. There is gas within the right lateral chest wall extending into the axillary region. Bones are osteopenic. IMPRESSION: 1. Worsening airspace consolidations in both lower lobes concerning for progressive pneumonia, left worse than right. 2. Persistent elevation of right hemidiaphragm with multiple acute right rib fractures. There is right chest wall emphysema extending into the axilla.
[2017-03-01] MEDS: SODIUM CHLORIDE 0.9% 1,000 ML IV SCH ×5 (05:01→18:07)
[2017-03-01 06:54] LABS: Glucose,Whole Blood 118 mg/dL (75-99)
[2017-03-01] MEDS: BUDESONIDE 0.5 MG/2 ML NEBU INHALATION SCH ×2 (07:39→19:54)
[2017-03-01] MEDS: IPRATROPIUM-ALBUTEROL 3 ML NEB INHALATION SCH ×4 (07:40→19:54)
[2017-03-01] MEDS: MEGESTROL 400 MG/10 ML CUP PO SCH (07:50)
[2017-03-01] MEDS: PANTOPRAZOLE 40 MG TABLET PO SCH (07:50)
[2017-03-01] MEDS: DOCUSATE 100 MG CAP PO SCH (07:50)
[2017-03-01] MEDS: LISINOPRIL 10 MG TAB PO SCH ×2 (07:50→20:57)
[2017-03-01] MEDS: amLODIPine 5 MG TAB PO SCH (07:50)
[2017-03-01] MEDS: METOPROLOL TARTRATE 50 MG TAB PO SCH ×3 (07:50→23:11)
[2017-03-01] MEDS: predniSONE 20 MG TAB PO SCH (07:50)
[2017-03-01] MEDS: LIDOCAINE 5% PATCH TOPICAL SCH (07:52)
[2017-03-01] MEDS: AMPICILLIN-SULBACTAM 1.5 GM in SODIUM CHLORIDE 0.9% 50 ML IVPB SCH (08:14)
[2017-03-01 08:24] LABS: ALT 35 U/L (21-72); AST 49 U/L (17-59); Alkaline Phosphatase 80 U/L (38-126); Anion Gap 6 mmol/L; Blood Urea Nitrogen 18 mg/dL (9-20); Calcium 7.6 mg/dL (8.4-10.2); Carbon Dioxide 27 mmol/L (22-30); Chloride 98 mmol/L (98-107); Glucose 127 mg/dL (74-99); Non-African American GFR(MDRD) >60 (>60 ml/min/1.73 sqM); Potassium 3.1 mmol/L (3.5-5.1); Sodium 131 mmol/L (137-145); Total Bilirubin 0.6 mg/dL (0.2-1.3); Total Protein 4.9 g/dL (6.3-8.2)
[2017-03-01] MEDS: INSULIN LISPRO (humaLOG) 300 UNIT/3 ML VIAL SQ SCH ×4 (08:45→21:25)
[2017-03-01 09:13] LABS: Creatine Kinase MB 0.7 ng/mL (0.0-2.4)
[2017-03-01 09:23] LABS: Troponin I 0.159 ng/mL (0.000-0.034)
[2017-03-01] MEDS ORDERED: Potassium Replacement Protocol 1 EACH MISC MISCELLANE PRN (09:25)
[2017-03-01] MEDS: POTASSIUM CHLORIDE ER 20 MEQ TAB.ER PO SCH ×2 (11:24→14:24)
[2017-03-01] MEDS ORDERED: Magnesium Replacement Protocol 1 EACH MISC MISCELLANE PRN (11:25)
[2017-03-01 12:37] LABS: Glucose,Whole Blood 205 mg/dL (75-99)
[2017-03-01] MEDS ORDERED: IV VANCOMYCIN PER PHARMACY 1 EACH MISC MISCELLANE PRN (14:09)
--- NOTE | 2017-03-01 14:12 | P.PN ---
Subjective Principal diagnosis: Pneumothorax, flail chest Patient seen and examined. Patient states he is still having significant pain and does get SOB with exertion. He says his breathing is good when he doesn't move. His appetite has improved. Objective - Vital Signs Vital signs: Vital Signs Temp 100.1 F H 03/01/17 08:57 Pulse 112 H 03/01/17 11:03 Resp 20 03/01/17 08:00 BP 149/82 03/01/17 08:57 Pulse Ox 98 03/01/17 08:57 Intake & Output 02/28/17 03/01/17 03/01/17 18:59 06:59 18:59 Intake Total 1120 50 Output Total 200 404 202 Balance 920 -632 -202 Weight 50.1 kg 50.1 kg Intake: IV 50 50 Ampicillin-Sulbactam 1.5 50 50 gm In Sodium Chloride 0.9 % 50 ml @ 100 mls/hr IVPB Q8HR [facility] Rx#:[id number] Intake, IV Titration 1070 Amount Ampicillin-Sulbactam 1.5 50 gm In Sodium Chloride 0.9 % 50 ml @ 100 mls/hr IVPB Q8HR [facility] Rx#:[id number] Dextrose 5%-0.9% NaCl 1, 320 000 ml @ 40 mls/hr IV . Q24H [facility] Rx#:[id number] Magnesium Sulfate-D5w Pmx 100 1 gm In Dextrose/Water 1 100ml.bag @ 100 mls/hr IVPB Q1H [facility] Rx#: [id number] Sodium Chloride 0.9% 1, 600 000 ml @ 75 mls/hr IV . [id number] [facility] Rx#:[id number] Output: Urine 200 400 200 Stool 4 2 Other: Voiding Method Urinal Urinal # Voids 1 2 1 - Exam Gen.: Patient is alert and oriented 3, no acute distress Cardiovascular: Regular rate and rhythm, S1/S2 Lungs: Coarse breath sounds bilaterally Abdomen: Soft nontender nondistended positive bowel sounds Extremities: No edema - Labs CBC & Chem 7: 02/27/17 14:50 03/01/17 07:47 Labs: Abnormal Lab Results - Last 24 Hours (Table) 02/28/17 02/28/17 02/28/17 Range/Units 16:45 16:46 17:20 Sodium 130 L (137-145) mmol/L Potassium (3.5-5.1) mmol/L Chloride 96 L (98-107) mmol/L BUN 22 H (9-20) mg/dL Glucose 59 L (74-99) mg/dL POC Glucose (mg/dL) 38 L 43 L (75-99) mg/dL Calcium 7.8 L (8.4-10.2) mg/dL Troponin I (0.000-0.034) ng/mL Total Protein (6.3-8.2) g/dL Albumin (3.5-5.0) g/dL 02/28/17 02/28/17 02/28/17 Range/Units 17:20 17:40 21:56 Sodium (137-145) mmol/L Potassium (3.5-5.1) mmol/L Chloride (98-107) mmol/L BUN (9-20) mg/dL Glucose (74-99) mg/dL POC Glucose (mg/dL) 49 L 38 L 136 H (75-99) mg/dL Calcium (8.4-10.2) mg/dL Troponin I (0.000-0.034) ng/mL Total Protein (6.3-8.2) g/dL Albumin (3.5-5.0) g/dL 03/01/17 03/01/17 03/01/17 Range/Units 06:53 07:47 07:47 Sodium 131 L (137-145) mmol/L Potassium 3.1 L (3.5-5.1) mmol/L Chloride (98-107) mmol/L BUN (9-20) mg/dL Glucose 127 H (74-99) mg/dL POC Glucose (mg/dL) 118 H (75-99) mg/dL Calcium 7.6 L (8.4-10.2) mg/dL Troponin I 0.159 H* (0.000-0.034) ng/mL Total Protein 4.9 L (6.3-8.2) g/dL Albumin 2.4 L (3.5-5.0) g/dL 03/01/17 Range/Units 12:17 Sodium (137-145) mmol/L Potassium (3.5-5.1) mmol/L Chloride (98-107) mmol/L BUN (9-20) mg/dL Glucose (74-99) mg/dL POC Glucose (mg/dL) 205 H (75-99) mg/dL Calcium (8.4-10.2) mg/dL Troponin I (0.000-0.034) ng/mL Total Protein (6.3-8.2) g/dL Albumin (3.5-5.0) g/dL Assessment and Plan Plan: Status post fall with multiple right-sided rib fractures Flail chest Right [place]-pneumothorax - complex/loculated, worsening Left basilar pneumonia Acute exacerbation of COPD Acute hypoxic respiratory failure Aspiration pneumonia, now improving Elevated right hemidiaphragm Chronic kidney disease stage III Alcoholism Active tobacco abuse Anemia Hyponatremia O2 to maintain saturation greater than or equal to 90% Pain control Pulmicort Steroid taper Duo nebs Add Vanco and Zosyn Sputum culture PT and OT Decrease IVF 0.9NS @ 40 cc/hr Check CBC, BMP now Continue D5 for hypoglycemia Consult dietitian Add Marinol for appetite Incentive spirometry and pulmonary hygiene GI and DVT prophylaxis Consult ID Would recommend patient be transferred to tertiary care center for worsening and ongoing issues with loculated effusion and flail chest.
[2017-03-01] MEDS: MAGNESIUM SULFATE-D5W PMX 1 GM in DEXTROSE/WATER 1 100ML.BAG IVPB SCH ×2 (14:23→18:04)
[2017-03-01 17:09] LABS: Glucose,Whole Blood 284 mg/dL (75-99)
[2017-03-01] MEDS: VANCOMYCIN 1,000 MG in SODIUM CHLORIDE 0.9% 250 ML IVPB SCH (18:05)
[2017-03-01] MEDS: DEXTROSE 5%-0.9% NACL 1,000 ML IV SCH (18:07)
[2017-03-01] MEDS: oxyCODONE-APAP 5-325MG 1 EACH TAB PO PRN (19:42)
[2017-03-01] MEDS: PIPERACILLIN-TAZOBACTAM 3.375 GM in DEXTROSE/WATER 1 50ML.BAG IVPB SCH ×2 (20:51→23:08)
[2017-03-01] MEDS: ATORVASTATIN 10 MG TAB PO SCH (20:56)
[2017-03-01 21:16] LABS: Glucose,Whole Blood 81 mg/dL (75-99)
--- NOTE | 2017-03-01 21:49 | P.PN ---
Subjective Principal diagnosis: Worsening respiratory status This is a continue naproxen on an 81-year-old white male with known history of COPD who has been treated for pneumothorax. He was quite stable yesterday but had a significant pulse oximetry dropped earlier this morning. He is transferred, because of his x-ray showing bilateral pneumonia. The patient seems more tired today appetite is somewhat poor.. No new voiding difficulties. Objective - Vital Signs Vital signs: Vital Signs Temp 98.8 F 03/01/17 12:00 Pulse 112 H 03/01/17 20:04 Resp 20 03/01/17 08:00 BP 159/78 03/01/17 16:00 Pulse Ox 94 L 03/01/17 16:00 Intake & Output 03/01/17 03/01/17 03/02/17 06:59 18:59 06:59 Intake Total 50 820 236 Output Total 404 202 Balance -354 618 236 Weight 50.1 kg 50.1 kg Intake: IV 50 Ampicillin-Sulbactam 1.5 50 gm In Sodium Chloride 0.9 % 50 ml @ 100 mls/hr IVPB Q8HR [facility] Rx#:[id number] Intake, IV Titration 820 Amount Dextrose 5%-0.9% NaCl 1, 400 000 ml @ 40 mls/hr IV . Q24H [facility] Rx#:[id number] Magnesium Sulfate-D5w Pmx 100 1 gm In Dextrose/Water 1 100ml.bag @ 100 mls/hr IVPB Q1H [facility] Rx#: [id number] Sodium Chloride 0.9% 1, 320 000 ml @ 40 mls/hr IV . Q24H [facility] Rx#:[id number] Oral 236 Output: Urine 400 200 Stool 4 2 Other: Voiding Method Urinal Urinal # Voids 2 1 2 - Constitutional General appearance: Present: thin - EENT Eyes: Present: abnormal pupil - Respiratory Respiratory: bilateral: diminished - Cardiovascular Heart sounds: normal: S1, S2 - Gastrointestinal General gastrointestinal: Present: soft, tenderness - Labs CBC & Chem 7: 02/27/17 14:50 03/01/17 07:47 Labs: Abnormal Lab Results - Last 24 Hours (Table) 02/28/17 03/01/17 03/01/17 Range/Units 21:56 06:53 07:47 Sodium 131 L (137-145) mmol/L Potassium 3.1 L (3.5-5.1) mmol/L Glucose 127 H (74-99) mg/dL POC Glucose (mg/dL) 136 H 118 H (75-99) mg/dL Calcium 7.6 L (8.4-10.2) mg/dL Troponin I (0.000-0.034) ng/mL Total Protein 4.9 L (6.3-8.2) g/dL Albumin 2.4 L (3.5-5.0) g/dL 03/01/17 03/01/17 03/01/17 Range/Units 07:47 12:17 16:51 Sodium (137-145) mmol/L Potassium (3.5-5.1) mmol/L Glucose (74-99) mg/dL POC Glucose (mg/dL) 205 H 284 H (75-99) mg/dL Calcium (8.4-10.2) mg/dL Troponin I 0.159 H* (0.000-0.034) ng/mL Total Protein (6.3-8.2) g/dL Albumin (3.5-5.0) g/dL Assessment and Plan (1) Pneumothorax Status: Acute (2) Rib fracture Status: Acute (3) Opiate dependence Status: Acute (4) COPD (chronic obstructive pulmonary disease) Status: Acute (5) DJD (degenerative joint disease) Status: Acute Plan: Continue pulmonary support. Continue nebulizer treatments. The patient might need antibiotic change. Pulmonology has been consulted. I question need for sputum C&S repeat. Check CBC and CP in the a.m. Otherwise Dr. Chowdhury's group will be covering for the weekend. Time with Patient: Less than 30
[2017-03-02 02:32] LABS: Glucose,Whole Blood 67 mg/dL (75-99)
[2017-03-02 03:05] LABS: Glucose,Whole Blood 85 mg/dL (75-99)
[2017-03-02] MEDS: METOPROLOL TARTRATE 50 MG TAB PO SCH ×4 (03:09→20:28)
[2017-03-02] MEDS: MORPHINE SULFATE 2 MG/ML SYRINGE IVP PRN ×4 (03:09→20:29)
[2017-03-02] MEDS: INSULIN LISPRO (humaLOG) 300 UNIT/3 ML VIAL SQ SCH ×3 (05:43→17:04)
[2017-03-02 06:15] LABS: Glucose,Whole Blood 117 mg/dL (75-99)
[2017-03-02] MEDS: PANTOPRAZOLE 40 MG TABLET PO SCH (06:18)
[2017-03-02 06:57] LABS: Basophils % (A) 0 %; CH 31.5; CHCM 33.5; Eosinophils % (A) 0 %; HCT 30.3 % (39.0-53.0); HDW 2.94; Luc # (Auto) 0.08; Luc % (Auto) 1; Lymphocytes # (A) 0.3 k/uL (1.0-4.8); Lymphocytes % (A) 5 %; MCH 30.9 pg (25.0-35.0); MCHC 32.8 g/dL (31.0-37.0); MCV 94.2 fL (80.0-100.0); Mean Platelet Volume 6.9; Monocytes # (A) 0.2 k/uL (0-1.0); Monocytes % (A) 3 %; Neutrophils # (A) 6.6 k/uL (1.3-7.7); Neutrophils % (A) 91 %; RBC 3.22 m/uL (4.30-5.90); RDW 13.8 % (11.5-15.5); WBC 7.3 k/uL (3.8-10.6); WBC (Perox) 6.88
[2017-03-02 07:13] LABS: ALT 36 U/L (21-72); AST 52 U/L (17-59); Alkaline Phosphatase 72 U/L (38-126); Anion Gap 5 mmol/L; Blood Urea Nitrogen 20 mg/dL (9-20); Calcium 7.9 mg/dL (8.4-10.2); Carbon Dioxide 29 mmol/L (22-30); Chloride 99 mmol/L (98-107); Glucose 104 mg/dL (74-99); Non-African American GFR(MDRD) >60 (>60 ml/min/1.73 sqM); Potassium 3.9 mmol/L (3.5-5.1); Sodium 133 mmol/L (137-145); Total Bilirubin 0.6 mg/dL (0.2-1.3); Total Protein 5.2 g/dL (6.3-8.2)
[2017-03-02] MEDS: IPRATROPIUM-ALBUTEROL 3 ML NEB INHALATION SCH ×4 (07:36→19:56)
[2017-03-02] MEDS: BUDESONIDE 0.5 MG/2 ML NEBU INHALATION SCH ×2 (07:36→19:56)
[2017-03-02] MEDS: amLODIPine 5 MG TAB PO SCH (08:28)
[2017-03-02] MEDS: predniSONE 20 MG TAB PO SCH (08:28)
[2017-03-02] MEDS: DOCUSATE 100 MG CAP PO SCH (08:28)
[2017-03-02] MEDS: MEGESTROL 400 MG/10 ML CUP PO SCH (08:28)
[2017-03-02] MEDS: LISINOPRIL 10 MG TAB PO SCH ×2 (08:28→20:28)
[2017-03-02] MEDS: PIPERACILLIN-TAZOBACTAM 3.375 GM in DEXTROSE/WATER 1 50ML.BAG IVPB SCH ×2 (08:28→17:03)
[2017-03-02] MEDS: LIDOCAINE 5% PATCH TOPICAL SCH (08:29)
[2017-03-02] MEDS: VANCOMYCIN 1,000 MG in SODIUM CHLORIDE 0.9% 250 ML IVPB SCH (08:29)
[2017-03-02 12:20] LABS: Glucose,Whole Blood 177 mg/dL (75-99)
--- NOTE | 2017-03-02 12:24 | CONS ---
DATE OF CONSULTATION: 03/01/2017 Reason for consultation is worsening pneumonia. HISTORY OF PRESENT ILLNESS: The patient is an 81-year-old male who apparently did have a fall at home. Subsequently, patient was evaluated at [facility] ER on 02/09/2017 where the patient was noted to have multiple right-sided rib fractures with recently pneumothorax and the patient did have a chest tube, however, after removal of the chest tube, the patient noticed to have recurrence of his pneumothorax and the patient was brought to the [facility] to be evaluated by CT Surgery. Patient has been evaluated by CT Surgery, requiring placement of a chest tube that subsequently has been discontinued. Patient did have a repeat x-ray done this morning, which is now showing worsening bibasilar infiltrate with questionable worsening pneumonia. Patient had been started on broad-spectrum antibiotic in the form of vanco and Zosyn. The patient has been running fever the last few days of 101.1 to 100.1 this morning. I was asked to see the patient for further recommendation regarding antibiotic therapy, most of the information has been obtained from review of the chart and talking to the nursing staff. The patient is not a very good historian. Patient is complaining of shortness of breath and did have a cough. He is not able to bring any sputum up. Patient denies having any nausea. No vomiting or any significant diarrhea. REVIEW OF SYSTEMS: Could not be reliably obtained with the positive has been explained in the HPI. PAST MEDICAL HISTORY: Significant for gastroesophageal disease, COPD, immunodeficiency. PAST SURGICAL HISTORY: Prior back surgeries, bilateral shoulder surgery. SOCIAL HISTORY: Patient currently everyday smoker, has history of past alcohol abuse. FAMILY HISTORY: No pertinent findings were noticed. ALLERGIES: No known drug allergies. Medications currently include the patient is on Tylenol, DuoNeb, Norvasc, Lipitor, Pulmicort, Colace, Humalog, Lidoderm, Zestril, Megace, Lopressor, vancomycin pharmacy to dose, Percocet, Tazobactam, prednisone. On examination, blood pressure is 156/69 with a pulse of 114, temperature 97.6, 93% on 5 L nasal cannula. General description is an elderly male, lying in bed in no distress with no tachypnea or accessory muscle of respiration use. HEENT examination shows slight pallor. There is no scleral icterus. Oral mucous membranes dry. NECK: Trachea central. There is no thyromegaly. LUNGS: Unlabored breathing with decreased breath sounds at the base. No wheeze. HEART: S1, S2. Regular rate and rhythm. ABDOMEN: Soft, no tenderness. EXTREMITIES: No edema of the feet. SKIN EXAMINATION: No rash or mass palpable. NEUROLOGICAL: Patient awake, alert, oriented x1. Mood and affect normal. LABS: Hemoglobin is 9.4, white count 10.3 which was done on 02/27. with a BUN 18, creatinine 0.94, troponin is slightly elevated. X-ray results as mentioned above. No cultures done. DIAGNOSTIC IMPRESSION AND PLAN: Patient with right-sided pneumothorax with recurrent chest tube multiple times now with worsening elevated white count. The patient has been in the hospital for more than 2 weeks now with worsening pneumonia, considering likely for the resistant nosocomial pathogens such as methicillin-resistant Staphylococcus aureus and pseudomonas, requested for possible loculated effusion. If in fact it will be hard to clear up this infection without removal or drainage of the same infected fluid. PLAN: 1. Blood cultures x2 stat. 2. Obtain sputum for culture and sensitivity. 3. Vancomycin, pharmacy to dose, target trough of 15 and Zosyn for adequate coverage for the nosocomial pathogen. 4. Will follow on his clinical condition and cultures to further adjust the medication if needed. Thank you for this consultation. Will follow this patient along with you. RAJ
[2017-03-02] MEDS: SODIUM CHLORIDE 0.9% 1,000 ML IV SCH (15:58)
[2017-03-02 16:56] LABS: Glucose,Whole Blood 284 mg/dL (75-99)
--- NOTE | 2017-03-02 20:12 | PN ---
Mr. Antony Jacob is an 81-year-old male who is seen, evaluated, and examined on selective care. Patient has ongoing problems associated with hydropneumothorax which is complicated and flail chest, has severe COPD with acute exacerbation. The patient is status post fall with right-sided rib fractures and flail chest. The patient is being treated with broad-spectrum antibiotics. His last set of vitals include blood pressure is 160/89, respiratory rate 18, pulse of 120, temperature 98, saturating 95% on 5L oxygen. HEENT: Otherwise atraumatic, normocephalic. Pharynx is clear. Narrow pharyngeal opening is present. NECK: Supple without any lymphadenopathy, jugular venous distention or carotid bruits. LUNGS: Bilateral coarse breath sounds are present. Decreased air entry at the bases. HEART: Regular rate and rhythm. S1 and S2 audible. ABDOMEN: Soft. No rebound or rigidity. EXTREMITIES: +1 peripheral pulses. NEUROLOGICAL: Not much different from baseline. Chest x-ray last performed 03/01/2017 reviewed and compared with the prior x-ray revealed consolidation in both lower lobes along with pneumonia, left more than right, elevated right hemidiaphragm with right-sided rib fractures. A CT scan of the abdomen and pelvis 02/27/2017 revealed small reactive lymphadenopathy. Splenic fracture prominence. Rib fracture noted on 6th to 10th ribs on the right side along with subscapular hematoma on the right side, bilateral lower lobe consolidation. MEDICATIONS: Reviewed. LABS: Reviewed. White cell count is down to 7300. Sodium is 133. IMPRESSION: 1. Bilateral pneumonia. 2. Acute on chronic hypoxic respiratory failure. 3. Multiple rib fractures on the right side. 4. Severe chronic obstructive pulmonary disease, emphysema. PLAN: As above. Continue supportive care. Continue deep breathing and incentive spirometry. Continue antibiotics. Prognosis is guarded. Will follow.
[2017-03-02] MEDS: ATORVASTATIN 10 MG TAB PO SCH (20:28)
[2017-03-02 23:05] LABS: Glucose,Whole Blood 213 mg/dL (75-99)
[2017-03-03] MEDS: INSULIN LISPRO (humaLOG) 300 UNIT/3 ML VIAL SQ SCH ×5 (00:09→21:06)
[2017-03-03] MEDS ORDERED: MORPHINE SULFATE 2 MG/ML SYRINGE ONE (00:12)
[2017-03-03] MEDS: PIPERACILLIN-TAZOBACTAM 3.375 GM in DEXTROSE/WATER 1 50ML.BAG IVPB SCH ×3 (03:08→17:38)
[2017-03-03] MEDS: PANTOPRAZOLE 40 MG TABLET PO SCH (06:27)
[2017-03-03] MEDS: METOPROLOL TARTRATE 50 MG TAB PO SCH ×3 (06:27→21:07)
[2017-03-03 06:43] LABS: Glucose,Whole Blood 124 mg/dL (75-99)
--- NOTE | 2017-03-03 06:57 | PN ---
DATE OF SERVICE: 03/02/2017 Reason for follow-up is nosocomial pneumonia. INTERVAL HISTORY: The patient is afebrile. He seemed to more awake, alert, today. He is breathing comfortably. He continues to have a congestion, but not bringing up any sputum. No nausea, no vomiting. No abdominal pain or any diarrhea. On examination, blood pressure 158/89 with a pulse of 115, temperature 98.8. He is 94% on 5-liters nasal cannula. General description is an elderly male lying in bed in no distress. RESPIRATORY SYSTEM: Unlabored breathing with coarse breath sounds at the base. No wheeze. HEART: S1, S2 with regular rate and rhythm. ABDOMEN: Soft, no tenderness. LABS: Hemoglobin is 10 with white count 7.3, BUN of 20, creatinine 1.07. Blood cultures repeated yesterday are so far pending. Sputum not collected. DIAGNOSTIC IMPRESSION AND PLAN: Patient with bilateral basilar pneumonia in a patient who did have a complicated history with fall and pneumothorax requiring multiple chest tube placements and question of possible infected collection. Will try to obtain sputum and follow blood cultures to narrow the antibiotics. Continue the patient on Zosyn and Vanco at this point. Continue supportive care.
[2017-03-03] MEDS: BUDESONIDE 0.5 MG/2 ML NEBU INHALATION SCH ×2 (07:21→20:35)
[2017-03-03] MEDS: IPRATROPIUM-ALBUTEROL 3 ML NEB INHALATION SCH ×4 (07:21→20:36)
[2017-03-03] MEDS: MEGESTROL 400 MG/10 ML CUP PO SCH (07:36)
[2017-03-03] MEDS: amLODIPine 5 MG TAB PO SCH (07:36)
[2017-03-03] MEDS: predniSONE 20 MG TAB PO SCH (07:36)
[2017-03-03] MEDS: LIDOCAINE 5% PATCH TOPICAL SCH (07:36)
[2017-03-03] MEDS: LISINOPRIL 10 MG TAB PO SCH ×2 (07:36→21:07)
[2017-03-03] MEDS: DOCUSATE 100 MG CAP PO SCH (07:37)
[2017-03-03 11:45] LABS: Glucose,Whole Blood 120 mg/dL (75-99)
[2017-03-03] MEDS: VANCOMYCIN 1,000 MG in SODIUM CHLORIDE 0.9% 250 ML IVPB SCH (13:04)
[2017-03-03] MEDS: MORPHINE SULFATE 2 MG/ML SYRINGE IVP PRN (13:07)
[2017-03-03] MEDS ORDERED: DIGOXIN 250 MCG/ML 2 ML AMP IVP ONE (13:26)
[2017-03-03] MEDS ORDERED: VERAPAMIL 40 MG TAB PO STA (13:32)
--- NOTE | 2017-03-03 16:12 | PN ---
DATE OF SERVICE: 03/02/2017 INTERVAL HISTORY: Mr. Jacob is an 81-year-old male currently admitted to the hospital for hydropneumothorax and complicated by pleural effusions which are loculated and new infiltrate and also being treated for severe COPD exacerbation. The patient status post fall with right-sided rib fractures and flail chest. ID and Pulmonary are following this patient. Today the patient is still having short of breath and right-sided chest pain. No fever. No chills. No acute overnight issues. REVIEW OF SYSTEMS: CONSTITUTIONAL: No fever. No chills. RESPIRATORY: The patient denied any cough. Patient does have short of breath and chest pain mainly in the right rib cage. CARDIOVASCULAR: No midsternal chest pain. No leg swelling. ABDOMEN: No nausea or vomiting or abdominal pain. GENITOURINARY: Negative. ENDOCRINE: Negative. PSYCHIATRIC: Negative. SKIN: Negative. MUSCULOSKELETAL: Negative except as above. All other 14 negative except as above. Current medications include: 1. Vancomycin and 2. Zosyn. PHYSICAL EXAMINATION: An 81-year-old male lying in the bed comfortably; awake, alert, oriented x3, appears to be in no apparent distress. VITALS: Blood pressure is 160/89, pulse is 120, respirations 18, temperature afebrile, pulse ox 95% on 5L nasal cannula. HEENT: Atraumatic, normocephalic. Neck is supple. No JVD. CVS: S1, S2 heard. No murmurs or gallop. LUNGS: Bilateral coarse breath sounds heard. Rhonchi positive and decreased air entry bilateral basally, No wheezing. Nonlabored breathing. ABDOMEN: Soft, nontender, bowel sounds present. TEST DEVELOPER: Awake, alert and oriented x3. No focal deficit. EXTREMITIES: No edema. Pulses palpable bilaterally. No clubbing or cyanosis. PSYCHIATRIC: Cooperative. LABORATORY DATA: Reviewed. Chest x-ray on 03/01 showed consolidation in both lower lobes along with pneumonia, left more than right. Elevated right diaphragm with right-sided rib fractures. IMPRESSION: 1. Right-sided rib fractures with a flail chest, status post fall. 2. Right-sided hydropneumothorax. 3. Bilateral lower lobe pneumonia, left greater than right, possibly loculated/complex, worsening. 4. Left basilar pneumonia. 5. Acute exacerbation of chronic obstructive pulmonary disease. 6. Acute hypoxic respiratory failure secondary to chronic obstructive pulmonary disease and rib fractures. 7. Aspiration pneumonia. 8. Elevated right diaphragm. 9. Chronic kidney disease stage 3. 10. Alcohol abuse. 11. Active nicotine addiction. 12. Anemia. 13. Hyponatremia, improved. DISCUSSION AND PLAN: Patient will be continue on broad-spectrum antibiotics as per ID recommendations. Pulmonary is on board. Continue with the DuoNeb and steroids and Pulmicort inhalation. Continue with PT, OT and pain management. Follow up closely. Continue with gentle hydration and pain management and further recommendations based on clinical course. Prognosis is guarded.
[2017-03-03 17:11] LABS: Glucose,Whole Blood 185 mg/dL (75-99)
[2017-03-03] MEDS: SODIUM CHLORIDE 0.9% 1,000 ML IV SCH (17:36)
[2017-03-03] MEDS: oxyCODONE-APAP 5-325MG 1 EACH TAB PO PRN (21:07)
[2017-03-03] MEDS: ATORVASTATIN 10 MG TAB PO SCH (21:10)
[2017-03-03 21:18] LABS: Glucose,Whole Blood 93 mg/dL (75-99)
[2017-03-04] MEDS: PIPERACILLIN-TAZOBACTAM 3.375 GM in DEXTROSE/WATER 1 50ML.BAG IVPB SCH ×4 (00:30→23:33)
[2017-03-04 02:32] LABS: Glucose,Whole Blood 140 mg/dL (75-99)
[2017-03-04] MEDS: oxyCODONE-APAP 5-325MG 1 EACH TAB PO PRN ×4 (03:07→20:27)
[2017-03-04 06:58] LABS: Glucose,Whole Blood 116 mg/dL (75-99)
[2017-03-04] MEDS: PANTOPRAZOLE 40 MG TABLET PO SCH (06:59)
[2017-03-04] MEDS: INSULIN LISPRO (humaLOG) 300 UNIT/3 ML VIAL SQ SCH ×4 (06:59→23:18)
[2017-03-04 07:36] LABS: Anion Gap 7 mmol/L; Blood Urea Nitrogen 24 mg/dL (9-20); Calcium 7.9 mg/dL (8.4-10.2); Carbon Dioxide 28 mmol/L (22-30); Chloride 100 mmol/L (98-107); Glucose 111 mg/dL (74-99); Non-African American GFR(MDRD) 56 (>60 ml/min/1.73 sqM); Potassium 3.2 mmol/L (3.5-5.1); Sodium 135 mmol/L (137-145)
[2017-03-04 07:41] LABS: Basophils % (A) 0 %; CH 31.1; Eosinophils % (A) 0 %; HCT 27.8 % (39.0-53.0); HDW 3.03; HGB 9.1 gm/dL (13.0-17.5); Luc # (Auto) 0.04; Luc % (Auto) 1; Lymphocytes # (A) 0.3 k/uL (1.0-4.8); Lymphocytes % (A) 7 %; MCHC 32.7 g/dL (31.0-37.0); MCV 94.5 fL (80.0-100.0); Mean Platelet Volume 7.3; Monocytes # (A) 0.1 k/uL (0-1.0); Monocytes % (A) 2 %; Neutrophils # (A) 4.4 k/uL (1.3-7.7); Neutrophils % (A) 90 %; RBC 2.94 m/uL (4.30-5.90); WBC 4.9 k/uL (3.8-10.6); WBC (Perox) 5.35
--- NOTE | 2017-03-04 07:51 | XR ---
EXAMINATION TYPE: XR chest 1V portable DATE OF EXAM: 03/04/2017 7:18 AM Comparison: 03/01/2017 Clinical History: 81-year-old male bilateral pneumonia Findings: Multiple right-sided rib fractures are redemonstrated. ACDF hardware partially seen. Heart is normal size. Bibasilar airspace disease, left greater than right persists with trace effusions. Continued el evation right hemidiaphragm. No pneumothorax seen. Impression: 1. Overall stable left greater than right bibasilar airspace disease. Suggestion of trace effusions. 2. Known right-sided rib fractures. 3. Continued elevation right hemidiaphragm.
--- NOTE | 2017-03-04 08:39 | P.PN ---
Subjective Principal diagnosis: Worsening respiratory status This can impression an 81-year-old white male essentially admitted for pneumothorax but found to have bibasilar airspace and pneumonia. He is still having difficulty breathing because of his element of end-stage COPD. Accessory muscle use is noted. He states he is able to go to the bathroom but it essentially wears him out. No significant fever. He is on current regimen of antibiotic treatment and seems to be slightly improved. Objective - Vital Signs Vital signs: Vital Signs Temp 98.3 F 03/04/17 04:00 Pulse 76 03/04/17 04:00 Resp 16 03/04/17 04:00 BP 141/82 03/04/17 04:00 Pulse Ox 95 03/04/17 04:00 Intake & Output 03/03/17 03/04/17 03/04/17 18:59 06:59 18:59 Intake Total 740 Output Total 350 Balance 390 Weight 51.5 kg Intake: IV 740 Piperacillin-Tazobactam 3 100 .375 gm In Dextrose/Water 1 50ml.bag @ 12.5 mls/hr IVPB Q8HR [facility] Rx#: [id number] Sodium Chloride 0.9% 1, 640 000 ml @ 40 mls/hr IV . Q24H [facility] Rx#:[id number] Output: Urine 350 Other: Voiding Method Incontinent Urinal Diaper Incontinent # Voids 1 - Constitutional General appearance: Absent: average body habitus - Respiratory Respiratory: bilateral: CTA - Cardiovascular Rhythm: regular Heart sounds: normal: S1, S2 - Gastrointestinal General gastrointestinal: Present: soft - Psychiatric Psychiatric: Present: A&O x's 3 - Labs CBC & Chem 7: 03/04/17 06:50 03/04/17 06:50 Labs: Abnormal Lab Results - Last 24 Hours (Table) 03/03/17 03/03/17 03/04/17 Range/Units 11:40 17:06 02:11 RBC (4.30-5.90) m/uL Hgb (13.0-17.5) gm/dL Hct (39.0-53.0) % Plt Count (150-450) k/uL Lymphocytes # (1.0-4.8) k/uL Sodium (137-145) mmol/L Potassium (3.5-5.1) mmol/L BUN (9-20) mg/dL Glucose (74-99) mg/dL POC Glucose (mg/dL) 120 H 185 H 140 H (75-99) mg/dL Calcium (8.4-10.2) mg/dL 03/04/17 03/04/17 03/04/17 Range/Units 06:20 06:50 06:50 RBC 2.94 L (4.30-5.90) m/uL Hgb 9.1 L (13.0-17.5) gm/dL Hct 27.8 L (39.0-53.0) % Plt Count 126 L (150-450) k/uL Lymphocytes # 0.3 L (1.0-4.8) k/uL Sodium 135 L (137-145) mmol/L Potassium 3.2 L (3.5-5.1) mmol/L BUN 24 H (9-20) mg/dL Glucose 111 H (74-99) mg/dL POC Glucose (mg/dL) 116 H (75-99) mg/dL Calcium 7.9 L (8.4-10.2) mg/dL Microbiology - Last 24 Hours (Table) 03/01/17 18:08 Blood Culture - Preliminary Blood No Growth after 48 hours Assessment and Plan (1) Pneumothorax Status: Acute (2) Rib fracture Status: Acute (3) Opiate dependence Status: Acute (4) COPD (chronic obstructive pulmonary disease) Status: Acute (5) DJD (degenerative joint disease) Status: Acute Plan: Continue current regimen of antibiotic treatment. Appreciate pulmonology input. Prognosis is guarded secondary to his underlying element of COPD. She orders otherwise. Time with Patient: Less than 30
[2017-03-04] MEDS ORDERED: Potassium Replacement Protocol 1 EACH MISC MISCELLANE PRN (08:40)
[2017-03-04] MEDS: BUDESONIDE 0.5 MG/2 ML NEBU INHALATION SCH ×2 (09:09→20:34)
[2017-03-04] MEDS: IPRATROPIUM-ALBUTEROL 3 ML NEB INHALATION SCH ×4 (09:09→20:34)
[2017-03-04] MEDS: LIDOCAINE 5% PATCH TOPICAL SCH (09:51)
[2017-03-04] MEDS: predniSONE 20 MG TAB PO SCH (09:54)
[2017-03-04] MEDS: DOCUSATE 100 MG CAP PO SCH (09:54)
[2017-03-04] MEDS: METOPROLOL TARTRATE 50 MG TAB PO SCH ×3 (09:57→20:27)
[2017-03-04] MEDS: LISINOPRIL 10 MG TAB PO SCH ×2 (09:57→20:28)
[2017-03-04] MEDS: MEGESTROL 400 MG/10 ML CUP PO SCH (09:58)
[2017-03-04] MEDS: amLODIPine 5 MG TAB PO SCH (09:58)
[2017-03-04] MEDS: VANCOMYCIN 1,000 MG in SODIUM CHLORIDE 0.9% 250 ML IVPB SCH (10:08)
--- NOTE | 2017-03-04 10:29 | PN ---
DATE OF SERVICE: 03/03/2017 Reason for followup is nosocomial pneumonia. INTERVAL HISTORY: The patient is afebrile. He seemed to be more awake, although he is breathing comfortably. Patient denies significant chest pain, occasional cough and no abdominal pain. No diarrhea and no diarrhea. On examination, blood pressure is 116/71 with a pulse of 117, temperature 99.2. He is 94% on 4 L nasal cannula. General description is an elderly male, lying in bed in no distress. RESPIRATORY SYSTEM: Unlabored breathing with decreased breath sounds at the base. No wheeze. HEART: S1, S2, regular rate and rhythm. ABDOMEN: Soft, no tenderness. LABS: No new labs have been obtained today and blood culture has been negative so far. Sputum not collected. DIAGNOSTIC IMPRESSION AND PLAN: Patient with nosocomial pneumonia in a patient who already had bilateral basilar infiltrate with a history of fall with a pneumothorax, status post multiple chest tubes. He is currently responding to the broad-spectrum antibiotic in the form of vanco and Zosyn. Tried to bring up sputum to narrow on his antibiotics and continue supportive care.
[2017-03-04] MEDS: POTASSIUM CHLORIDE ER 20 MEQ TAB.ER PO SCH ×4 (11:20→23:32)
[2017-03-04 12:45] LABS: Glucose,Whole Blood 186 mg/dL (75-99)
--- NOTE | 2017-03-04 13:07 | P.PN ---
Subjective Principal diagnosis: Pneumothorax, flail chest Patient seen and examined. Patient states he is feeling a little bit better today. His pain is still an issue when he ambulates. The patient states he has not been working with physical therapy because he doesn't want to. He states he just wants to go home. He says his breathing is little bit better today. Objective - Vital Signs Vital signs: Vital Signs Temp 98.3 F 03/04/17 04:00 Pulse 104 H 03/04/17 09:26 Resp 16 03/04/17 04:00 BP 141/82 03/04/17 04:00 Pulse Ox 95 03/04/17 04:00 Intake & Output 03/03/17 03/04/17 03/04/17 18:59 06:59 18:59 Intake Total 740 118 Output Total 350 Balance 390 118 Weight 51.5 kg Intake: IV 740 Piperacillin-Tazobactam 3 100 .375 gm In Dextrose/Water 1 50ml.bag @ 12.5 mls/hr IVPB Q8HR [facility] Rx#: [id number] Sodium Chloride 0.9% 1, 640 000 ml @ 40 mls/hr IV . Q24H [facility] Rx#:[id number] Oral 118 Output: Urine 350 Other: Voiding Method Incontinent Urinal Diaper Incontinent # Voids 1 1 - Exam Gen.: Patient is alert and oriented 3, no acute distress Cardiovascular: Regular rate and rhythm, S1/S2 Lungs: Coarse breath sounds bilaterally Abdomen: Soft nontender nondistended positive bowel sounds Extremities: No edema - Labs CBC & Chem 7: 03/04/17 06:50 03/04/17 06:50 Labs: Abnormal Lab Results - Last 24 Hours (Table) 03/03/17 03/04/17 03/04/17 Range/Units 17:06 02:11 06:20 RBC (4.30-5.90) m/uL Hgb (13.0-17.5) gm/dL Hct (39.0-53.0) % Plt Count (150-450) k/uL Lymphocytes # (1.0-4.8) k/uL Sodium (137-145) mmol/L Potassium (3.5-5.1) mmol/L BUN (9-20) mg/dL Glucose (74-99) mg/dL POC Glucose (mg/dL) 185 H 140 H 116 H (75-99) mg/dL Calcium (8.4-10.2) mg/dL 03/04/17 03/04/17 03/04/17 Range/Units 06:50 06:50 12:24 RBC 2.94 L (4.30-5.90) m/uL Hgb 9.1 L (13.0-17.5) gm/dL Hct 27.8 L (39.0-53.0) % Plt Count 126 L (150-450) k/uL Lymphocytes # 0.3 L (1.0-4.8) k/uL Sodium 135 L (137-145) mmol/L Potassium 3.2 L (3.5-5.1) mmol/L BUN 24 H (9-20) mg/dL Glucose 111 H (74-99) mg/dL POC Glucose (mg/dL) 186 H (75-99) mg/dL Calcium 7.9 L (8.4-10.2) mg/dL Microbiology - Last 24 Hours (Table) 03/01/17 18:08 Blood Culture - Preliminary Blood No Growth after 48 hours Assessment and Plan Plan: Status post fall with multiple right-sided rib fractures Flail chest Right [place]-pneumothorax - complex/loculated, worsening Left basilar pneumonia Acute exacerbation of COPD Acute hypoxic respiratory failure Aspiration pneumonia, now improving Elevated right hemidiaphragm Chronic kidney disease stage III Alcoholism Active tobacco abuse Anemia Hyponatremia O2 to maintain saturation greater than or equal to 90% Pain control Pulmicort Steroid taper Duo nebs PT and OT Marinol for appetite Incentive spirometry and pulmonary hygiene GI and DVT prophylaxis ABX per ID
--- NOTE | 2017-03-04 13:27 | PN ---
81-year-old male, seen, evaluated and examined on the sixth floor. Patient is an 81-year-old male who had multiple rib fractures on the right side and chest pain, which is stable with medication. Patient has chronic renal failure, has been on hemodialysis as well. His oxygenation has continued to improve slowly, however, remains on significant amount of oxygen at 4 liters at 95%. Blood pressure is 140/77, respiratory rate is in mid teens, heart rate 97, temperature 98, saturation on 95% on 4 liters oxygen. His current medications are reviewed and include: 1. Tylenol as needed. 2. Unit dose DuoNeb 4 times a day. 3. Norvasc 5 mg a day. 4. Lipitor 10 mg daily. 5. Pulmicort 2 times a day 0.5 mg. 6. Sliding scale insulin. 7. Lidocaine. 8. Restoril 10 mg p.o. 2 times a day. 9. Milk of magnesia. 10. K-Mag phos replacement protocol. 11. Protonix 40 mg daily. 12. Vancomycin and Zosyn 1 gram and 3.375 grams respectively. HEENT EXAMINATION: Otherwise unremarkable. Oral mucosa is dry and narrowing airway is noted. NECK: Supple. Neck veins are prominent. LUNGS: Basal crackles in the right side with decreased air entry at the bases. HEART: Regular rate and rhythm. ABDOMEN: Soft. No rebound or rigidity. EXTREMITIES: +1 peripheral pulses. NEUROLOGICAL EXAMINATION: Otherwise, awake and alert. Chest x-ray revealed bilateral lower lobe pneumonia worse on the right side compared to the left side, evaluated right hemidiaphragm and multiple right-sided rib fractures. IMPRESSION: 1. Bilateral pneumonia and acute on chronic hypoxic respiratory failure. 2. Right-sided pneumothorax requiring chest tube and hydropneumothorax 3. Severe chronic obstructive pulmonary disease. 4. Elevated right hemidiaphragm. 5. Chronic renal failure. 6. History of smoking and nicotine use and chronic hyponatremia. Plan is to continue breathing treatments. Continue deep breathing and incentive spirometry. Titrate oxygen down as tolerated. Continue broad-spectrum antibiotics. Increase activity as tolerated. The patient is counselled about deep breathing exercises and incentive spirometry as well. We will obtain a follow-up chest x-ray.
--- NOTE | 2017-03-04 15:39 | PN ---
DATE OF SERVICE: 03/03/2017 INTERVAL HISTORY: Mr. Jacob is an 81-year-old male admitted to the hospital with hydropneumothorax and complicated by pleural effusion, which is loculated and with new infiltrates. The patient is also being treated for severe chronic obstructive pulmonary disease exacerbation. Patient is status post fall and a right-sided multiple rib fractures and ( ) chest. ID and Pulmonary are following the patient. Today the patient denied any worsening chest pain or short of breath. No nausea or vomiting. No fever. No chills. No acute overnight issues. Complete review of systems negative except as above. Current medications reviewed. PHYSICAL EXAMINATION: An 81-year-old male lying in bed comfortably, awake, alert and oriented x3, appears to be in no apparent distress. VITALS: Blood pressure is 140/77, pulse is 97, respirations 16, temperature afebrile, pulse ox 99% on 4-L nasal cannula. HEENT: Atraumatic, normocephalic. Neck is supple. No JVD. CVS: S1, S2 heard. No murmurs, no gallop. LUNGS: Bilateral air entry is present. Right-sided basilar crackles and rhonchi positive. Overall respiratory status is improved. No wheezing. ABDOMEN: Soft, nontender. Bowel sounds present. NATIONAL COVERAGE SPECIALIST: Awake, alert, oriented x3. No focal deficit. EXTREMITIES: Edema. Pulses palpable bilaterally. No clubbing or cyanosis. PSYCHIATRIC: Cooperative. LABORATORY DATA: Reviewed. IMPRESSION: 1. Right-sided rib fractures with ( ) chest, status post fall. 2. Fight-sided hydropneumothorax. 3. Bilateral lower lobe pneumonia, left greater than right, possibly loculated and complex, worsening. 4. Left basilar pneumonia. 5. Acute exacerbation of chronic obstructive pulmonary disease. 6. Acute hypoxic respiratory failure secondary to chronic obstructive pulmonary disease, rib fractures and pneumonia. 7. Aspiration pneumonia. 8. Elevated right diaphragm. 9. CKD stage III. 10. Alcohol abuse. 11. Active nicotine addiction. 12. Anemia. 13. Hyponatremia, improved. DISCUSSION AND PLAN: The patient will be continued on broad-spectrum antibiotics, continue the steroids and breathing treatments and Pulmicort inhalation. Continue the PT, OT and follow closely. Continue the pain management and bowel regimen. Prognosis is guarded. Further recommendations based on the clinical course.
[2017-03-04] MEDS: SODIUM CHLORIDE 0.9% 1,000 ML IV SCH (16:25)
[2017-03-04 16:45] LABS: Glucose,Whole Blood 269 mg/dL (75-99)
[2017-03-04] MEDS: ATORVASTATIN 10 MG TAB PO SCH (20:28)
[2017-03-04 20:40] LABS: Glucose,Whole Blood 164 mg/dL (75-99)
[2017-03-04 22:51] LABS: Glucose,Whole Blood 123 mg/dL (75-99)
[2017-03-05] MEDS: POTASSIUM CHLORIDE ER 20 MEQ TAB.ER PO SCH (00:13)
[2017-03-05] MEDS: MORPHINE SULFATE 2 MG/ML SYRINGE IVP PRN ×2 (00:24→07:08)
[2017-03-05] MEDS: IPRATROPIUM-ALBUTEROL 3 ML NEB INHALATION PRN (00:26)
[2017-03-05] MEDS: oxyCODONE-APAP 5-325MG 1 EACH TAB PO PRN ×4 (02:18→21:54)
[2017-03-05] MEDS ORDERED: VERAPAMIL 40 MG TAB ONE (04:33)
[2017-03-05 05:41] LABS: Glucose,Whole Blood 115 mg/dL (75-99)
[2017-03-05] MEDS: INSULIN LISPRO (humaLOG) 300 UNIT/3 ML VIAL SQ SCH ×4 (05:59→21:55)
[2017-03-05 06:49] LABS: Magnesium 1.7 mg/dL (1.6-2.3); Potassium 3.8 mmol/L (3.5-5.1)
[2017-03-05] MEDS: PANTOPRAZOLE 40 MG TABLET PO SCH (06:52)
[2017-03-05] MEDS: BUDESONIDE 0.5 MG/2 ML NEBU INHALATION SCH ×2 (07:19→20:23)
[2017-03-05] MEDS: IPRATROPIUM-ALBUTEROL 3 ML NEB INHALATION SCH ×4 (07:19→20:24)
[2017-03-05] MEDS ORDERED: VANCOMYCIN TROUGH DUE 1 EACH MISC MISCELLANE ONE (08:00)
--- NOTE | 2017-03-05 08:28 | P.PN ---
Subjective Principal diagnosis: Respiratory distress/failure. This is an 81-year-old white male with history of fell chest and pneumothorax which is now resolved. However, he has developed bibasilar airspace disease and has had significant respiratory distress. He is speaking appropriately but has significant desaturation when ambulating. He does not usually have oxygen at home. We are slowly tapering steroid. Appreciate pulmonology input. Hopefully we can discharge the next 24-48 hours. No new voiding difficulties. Objective - Vital Signs Vital signs: Vital Signs Temp 98.4 F 03/05/17 04:00 Pulse 128 H 03/05/17 07:37 Resp 22 03/05/17 04:00 BP 163/96 03/05/17 04:00 Pulse Ox 92 L 03/05/17 04:00 Intake & Output 03/04/17 03/05/17 03/05/17 18:59 06:59 18:59 Intake Total 118 500 Output Total 75 100 Balance 43 400 Weight 51.5 kg 51 kg Intake: IV 250 Piperacillin-Tazobactam 3 50 .375 gm In Dextrose/Water 1 50ml.bag @ 12.5 mls/hr IVPB Q8HR [facility] Rx#: [id number] Sodium Chloride 0.9% 1, 200 000 ml @ 40 mls/hr IV . Q24H [facility] Rx#:[id number] Intake, IV Titration 50 Amount Piperacillin-Tazobactam 3 50 .375 gm In Dextrose/Water 1 50ml.bag @ 12.5 mls/hr IVPB Q8HR [facility] Rx#: [id number] Oral 118 200 Output: Urine 75 100 Other: Voiding Method Urinal Urinal Diaper Diaper Incontinent Incontinent # Voids 1 2 - Constitutional General appearance: Present: thin - EENT Eyes: Absent: abnormal pupil - Respiratory Respiratory: bilateral: diminished - Cardiovascular Rhythm: irregularly irregular Heart sounds: normal: S1, S2 - Gastrointestinal General gastrointestinal: Present: soft. Absent: tenderness - Labs CBC & Chem 7: 03/04/17 06:50 03/05/17 03:44 Labs: Abnormal Lab Results - Last 24 Hours (Table) 03/04/17 03/04/17 03/04/17 Range/Units 12:24 16:44 20:29 Potassium 3.3 L (3.5-5.1) mmol/L POC Glucose (mg/dL) 186 H 269 H (75-99) mg/dL 03/04/17 03/04/17 03/05/17 Range/Units 20:39 22:49 05:40 Potassium (3.5-5.1) mmol/L POC Glucose (mg/dL) 164 H 123 H 115 H (75-99) mg/dL Microbiology - Last 24 Hours (Table) 03/01/17 18:08 Blood Culture - Preliminary Blood No Growth after 72 hours Assessment and Plan (1) Pneumothorax Status: Acute (2) Rib fracture Status: Acute (3) Opiate dependence Status: Acute (4) COPD (chronic obstructive pulmonary disease) Status: Acute (5) DJD (degenerative joint disease) Status: Acute Plan: Continue current regimen of antibiotics. Steroid taper. Check CBC and CMP in a.m. Anticipate discharge in a.m. if stable. Time with Patient: Less than 30
[2017-03-05 08:36] LABS: CH 31.1; CHCM 32.8; HCT 28.8 % (39.0-53.0); HDW 3.14; HGB 9.1 gm/dL (13.0-17.5); MCH 30.2 pg (25.0-35.0); MCHC 31.8 g/dL (31.0-37.0); MCV 95.2 fL (80.0-100.0); RBC 3.02 m/uL (4.30-5.90); WBC 4.9 k/uL (3.8-10.6)
[2017-03-05 09:12] LABS: ALT 38 U/L (21-72); AST 42 U/L (17-59); Alkaline Phosphatase 62 U/L (38-126); Anion Gap 8 mmol/L; Blood Urea Nitrogen 27 mg/dL (9-20); Calcium 7.9 mg/dL (8.4-10.2); Carbon Dioxide 29 mmol/L (22-30); Chloride 101 mmol/L (98-107); Glucose 105 mg/dL (74-99); Non-African American GFR(MDRD) 54 (>60 ml/min/1.73 sqM); Potassium 3.9 mmol/L (3.5-5.1); Sodium 138 mmol/L (137-145); Total Bilirubin 0.7 mg/dL (0.2-1.3); Total Protein 5.3 g/dL (6.3-8.2)
[2017-03-05] MEDS: LIDOCAINE 5% PATCH TOPICAL SCH (09:22)
[2017-03-05] MEDS: MEGESTROL 400 MG/10 ML CUP PO SCH (09:25)
[2017-03-05] MEDS: DOCUSATE 100 MG CAP PO SCH (09:25)
[2017-03-05] MEDS: METOPROLOL TARTRATE 50 MG TAB PO SCH ×3 (09:25→21:55)
[2017-03-05] MEDS: predniSONE 20 MG TAB PO SCH (09:26)
[2017-03-05] MEDS: VANCOMYCIN 1,000 MG in SODIUM CHLORIDE 0.9% 250 ML IVPB SCH (09:39)
[2017-03-05] MEDS: PIPERACILLIN-TAZOBACTAM 3.375 GM in DEXTROSE/WATER 1 50ML.BAG IVPB SCH ×3 (09:39→23:40)
--- NOTE | 2017-03-05 11:12 | PN ---
DATE OF SERVICE: 03/04/2017 Reason for follow-up: Pneumonia nosocomial. INTERVAL HISTORY: The patient is afebrile. He is relatively more awake and alert. He is breathing comfortably. He does have pain from the right side of the chest. Continues to have a congested cough but not bringing any sputum up. No nausea, no vomiting. No abdominal pain. No diarrhea. On examination, blood pressure 159/71 with a pulse of pulse 88, temperature 99.3. He is 93% on 4 L nasal cannula. General description is an elderly male lying in bed in no distress. RESPIRATORY SYSTEM: Unlabored breathing. Coarse breath sounds at the bases bilaterally. HEART: S1, S2. Regular rate and rhythm. Abdomen soft, no tenderness. LABS: Hemoglobin 9.1, white count 4.9 with a BUN of 24, creatinine 1.24. Blood culture negative. Sputum not collected. Diagnostic impression and plan: The patient with bilateral basal pneumonia in a patient who was admitted to the hospital for a fall with right sided pneumothorax status post chest tube with bibasilar infiltrate. The patient currently maintained on broad spectrum antibiotics in the form of Zosyn and Vanco. We will try to obtain a sputum to narrow down the antibiotics. Continue supportive care. MTDD
[2017-03-05 11:20] LABS: Glucose,Whole Blood 123 mg/dL (75-99)
[2017-03-05] MEDS: amLODIPine 5 MG TAB PO SCH (12:38)
[2017-03-05] MEDS: LISINOPRIL 10 MG TAB PO SCH ×2 (12:39→21:55)
--- NOTE | 2017-03-05 14:42 | P.PN ---
Subjective Principal diagnosis: Pneumothorax and flail chest Patient seen and examined. Patient states his breathing is better today. He was able to get out of bed. He says his pain is "still there." He does not want to go to rehab. Objective - Vital Signs Vital signs: Vital Signs Temp 98.6 F 03/05/17 12:00 Pulse 84 03/05/17 12:00 Resp 24 03/05/17 12:00 BP 163/76 03/05/17 12:00 Pulse Ox 94 L 03/05/17 12:00 Intake & Output 03/04/17 03/05/17 03/05/17 18:59 06:59 18:59 Intake Total 118 500 400 Output Total 75 100 200 Balance 43 400 200 Weight 51.5 kg 51 kg Intake: IV 250 Piperacillin-Tazobactam 3 50 .375 gm In Dextrose/Water 1 50ml.bag @ 12.5 mls/hr IVPB Q8HR [facility] Rx#: [id number] Sodium Chloride 0.9% 1, 200 000 ml @ 40 mls/hr IV . Q24H [facility] Rx#:[id number] Intake, IV Titration 50 Amount Piperacillin-Tazobactam 3 50 .375 gm In Dextrose/Water 1 50ml.bag @ 12.5 mls/hr IVPB Q8HR [facility] Rx#: [id number] Oral 118 200 400 Output: Urine 75 100 200 Other: Voiding Method Urinal Urinal Urinal Diaper Diaper Diaper Incontinent Incontinent Incontinent # Voids 1 2 # Bowel Movements 1 - Exam Gen.: Patient is alert and oriented 3, no acute distress Cardiovascular: Regular rate and rhythm, S1/S2 Lungs: Coarse breath sounds bilaterally Abdomen: Soft nontender nondistended positive bowel sounds Extremities: No edema - Labs CBC & Chem 7: 03/05/17 08:20 03/05/17 08:20 Labs: Abnormal Lab Results - Last 24 Hours (Table) 03/04/17 03/04/17 03/04/17 Range/Units 16:44 20:29 20:39 RBC (4.30-5.90) m/uL Hgb (13.0-17.5) gm/dL Hct (39.0-53.0) % Plt Count (150-450) k/uL Potassium 3.3 L (3.5-5.1) mmol/L BUN (9-20) mg/dL Creatinine (0.66-1.25) mg/dL Glucose (74-99) mg/dL POC Glucose (mg/dL) 269 H 164 H (75-99) mg/dL Calcium (8.4-10.2) mg/dL Total Protein (6.3-8.2) g/dL Albumin (3.5-5.0) g/dL 03/04/17 03/05/17 03/05/17 Range/Units 22:49 05:40 08:20 RBC 3.02 L (4.30-5.90) m/uL Hgb 9.1 L (13.0-17.5) gm/dL Hct 28.8 L (39.0-53.0) % Plt Count 141 L (150-450) k/uL Potassium (3.5-5.1) mmol/L BUN (9-20) mg/dL Creatinine (0.66-1.25) mg/dL Glucose (74-99) mg/dL POC Glucose (mg/dL) 123 H 115 H (75-99) mg/dL Calcium (8.4-10.2) mg/dL Total Protein (6.3-8.2) g/dL Albumin (3.5-5.0) g/dL 03/05/17 03/05/17 Range/Units 08:20 11:18 RBC (4.30-5.90) m/uL Hgb (13.0-17.5) gm/dL Hct (39.0-53.0) % Plt Count (150-450) k/uL Potassium (3.5-5.1) mmol/L BUN 27 H (9-20) mg/dL Creatinine 1.27 H (0.66-1.25) mg/dL Glucose 105 H (74-99) mg/dL POC Glucose (mg/dL) 123 H (75-99) mg/dL Calcium 7.9 L (8.4-10.2) mg/dL Total Protein 5.3 L (6.3-8.2) g/dL Albumin 2.3 L (3.5-5.0) g/dL Microbiology - Last 24 Hours (Table) 03/01/17 18:08 Blood Culture - Preliminary Blood No Growth after 72 hours Assessment and Plan Plan: Status post fall with multiple right-sided rib fractures Flail chest Right [place]-pneumothorax - complex/loculated Left basilar pneumonia Acute exacerbation of COPD Acute hypoxic respiratory failure Aspiration pneumonia, now improving Elevated right hemidiaphragm Chronic kidney disease stage III Alcoholism Active tobacco abuse Anemia Hyponatremia O2 to maintain saturation greater than or equal to 90% Pain control Pulmicort Steroid taper Duo nebs PT and OT Marinol for appetite Incentive spirometry and pulmonary hygiene GI and DVT prophylaxis ABX per ID
[2017-03-05 16:49] LABS: Glucose,Whole Blood 206 mg/dL (75-99)
--- NOTE | 2017-03-05 17:30 | PN ---
DATE OF SERVICE: 03/05/2017 REASON FOR FOLLOWUP: Possible nosocomial pneumonia. INTERVAL HISTORY: The patient did spike a low-grade fever this morning of 100.3. The patient is afebrile since then. He is breathing comfortably. Still complaining of pain on the right side of the chest area. Overall breathing is at baseline. Mild cough. No diarrhea. On examination, blood pressure is 163/76 with a pulse of 84, temperature 98.6. He is 94% on 6 L nasal cannula. General description is an elderly male lying in bed in no distress. RESPIRATORY SYSTEM: Unlabored breathing with coarse crackles at the bases. No wheeze. HEART: S1, S2. Regular rate and rhythm. ABDOMEN: Soft. No tenderness. LABS: Hemoglobin is 9.1 with white count 4.9 with a BUN of 27, creatinine 1.27. Blood culture negative. Sputum was not collected. DIAGNOSTIC IMPRESSION AND PLAN: Patient with admission to hospital after a fall with right-sided pneumothorax, status post multiple chest tubes with evidence of pneumonia. He did have blood cultures which have been negative; unfortunately unable to get any sputum. He did have a low-grade fever this morning; however, that seems to have resolved quickly. The patient will continue to be monitored closely ( ) and adjust antibiotic further if any evidence of further fever or change in respiratory status.
[2017-03-05 20:33] LABS: Glucose,Whole Blood 155 mg/dL (75-99)
[2017-03-05] MEDS: SODIUM CHLORIDE 0.9% 1,000 ML IV SCH (21:55)
[2017-03-05] MEDS: ATORVASTATIN 10 MG TAB PO SCH (21:55)
[2017-03-06] MEDS: MORPHINE SULFATE 2 MG/ML SYRINGE IVP PRN (05:35)
[2017-03-06 06:02] LABS: Glucose,Whole Blood 44 mg/dL (75-99)
[2017-03-06] MEDS: INSULIN LISPRO (humaLOG) 300 UNIT/3 ML VIAL SQ SCH ×4 (06:10→20:34)
[2017-03-06 06:28] LABS: Glucose,Whole Blood 73 mg/dL (75-99)
[2017-03-06 06:46] LABS: Glucose,Whole Blood 78 mg/dL (75-99)
[2017-03-06] MEDS: VANCOMYCIN 1,250 MG in SODIUM CHLORIDE 0.9% 250 ML IVPB SCH (06:58)
[2017-03-06] MEDS: METOPROLOL TARTRATE 50 MG TAB PO SCH ×3 (06:59→22:09)
[2017-03-06] MEDS: PANTOPRAZOLE 40 MG TABLET PO SCH (06:59)
[2017-03-06] MEDS: BUDESONIDE 0.5 MG/2 ML NEBU INHALATION SCH ×2 (07:48→21:24)
[2017-03-06] MEDS: IPRATROPIUM-ALBUTEROL 3 ML NEB INHALATION SCH ×4 (07:48→21:24)
--- NOTE | 2017-03-06 08:13 | P.PN ---
Subjective Principal diagnosis: Continuing care. The patient is an 81-year-old white male essentially admitted for flail chest and pneumothorax. The patient has had a dayna post-course secondary to bilateral pneumonia. Pulmonology is on the case. He is now on Zosyn and vancomycin. Medically I suspect he is improving but has elements of end-stage COPD. He is agreeable to ECF. However he's been having significant tachycardia when trying to ambulate properly. Appetite is at her but still decreased. The patient is on Megace. Objective - Vital Signs Vital signs: Vital Signs Temp 98.2 F 03/06/17 04:00 Pulse 104 H 03/06/17 07:48 Resp 20 03/06/17 04:00 BP 169/80 03/06/17 04:00 Pulse Ox 93 L 03/06/17 04:00 Intake & Output 03/05/17 03/06/17 03/06/17 18:59 06:59 18:59 Intake Total 700 400 Output Total 350 125 Balance 350 275 Weight 54 kg Intake: IV 400 Sodium Chloride 0.9% 1, 400 000 ml @ 40 mls/hr IV . Q24H [facility] Rx#:[id number] Oral 700 Output: Urine 350 125 Other: Voiding Method Urinal Urinal Diaper Diaper Incontinent Incontinent # Voids 2 3 # Bowel Movements 1 - Constitutional General appearance: Present: thin - EENT Eyes: Absent: abnormal pupil - Respiratory Respiratory: bilateral: diminished - Cardiovascular Rhythm: irregularly irregular Heart sounds: normal: S1, S2 Abnormal Heart Sounds: Present: systolic murmur - Gastrointestinal General gastrointestinal: Present: soft - Integumentary Integumentary: Absent: cellulitis - Labs CBC & Chem 7: 03/05/17 08:20 03/05/17 08:20 Labs: Abnormal Lab Results - Last 24 Hours (Table) 03/05/17 03/05/17 03/05/17 Range/Units 08:20 08:20 11:18 RBC 3.02 L (4.30-5.90) m/uL Hgb 9.1 L (13.0-17.5) gm/dL Hct 28.8 L (39.0-53.0) % Plt Count 141 L (150-450) k/uL BUN 27 H (9-20) mg/dL Creatinine 1.27 H (0.66-1.25) mg/dL Glucose 105 H (74-99) mg/dL POC Glucose (mg/dL) 123 H (75-99) mg/dL Calcium 7.9 L (8.4-10.2) mg/dL Total Protein 5.3 L (6.3-8.2) g/dL Albumin 2.3 L (3.5-5.0) g/dL 03/05/17 03/05/17 03/06/17 Range/Units 16:41 20:32 06:00 RBC (4.30-5.90) m/uL Hgb (13.0-17.5) gm/dL Hct (39.0-53.0) % Plt Count (150-450) k/uL BUN (9-20) mg/dL Creatinine (0.66-1.25) mg/dL Glucose (74-99) mg/dL POC Glucose (mg/dL) 206 H 155 H 44 L (75-99) mg/dL Calcium (8.4-10.2) mg/dL Total Protein (6.3-8.2) g/dL Albumin (3.5-5.0) g/dL 03/06/17 Range/Units 06:27 RBC (4.30-5.90) m/uL Hgb (13.0-17.5) gm/dL Hct (39.0-53.0) % Plt Count (150-450) k/uL BUN (9-20) mg/dL Creatinine (0.66-1.25) mg/dL Glucose (74-99) mg/dL POC Glucose (mg/dL) 73 L (75-99) mg/dL Calcium (8.4-10.2) mg/dL Total Protein (6.3-8.2) g/dL Albumin (3.5-5.0) g/dL Microbiology - Last 24 Hours (Table) 03/01/17 18:08 Blood Culture - Preliminary Blood No Growth after 96 hours Assessment and Plan (1) Pneumothorax Status: Acute (2) Rib fracture Status: Acute (3) Opiate dependence Status: Acute (4) COPD (chronic obstructive pulmonary disease) Status: Acute (5) DJD (degenerative joint disease) Status: Acute Plan: I suspect his anemia is secondarily due to renal disease but is multifactorial. Increase ambulation if possible. Prognosis is guarded secondary to his multiple comorbidities and COPD. He will most likely benefit from going to ECF. Question need to slightly increase his beta chris secondary to significant tachycardia. Time with Patient: Greater than 30
[2017-03-06] MEDS: PIPERACILLIN-TAZOBACTAM 3.375 GM in DEXTROSE/WATER 1 50ML.BAG IVPB SCH ×3 (08:28→23:53)
[2017-03-06] MEDS: oxyCODONE-APAP 5-325MG 1 EACH TAB PO PRN ×3 (08:28→22:14)
[2017-03-06] MEDS: LIDOCAINE 5% PATCH TOPICAL SCH (08:30)
[2017-03-06] MEDS: predniSONE 10 MG TAB PO SCH (08:30)
[2017-03-06] MEDS: LISINOPRIL 10 MG TAB PO SCH ×2 (08:30→22:08)
[2017-03-06] MEDS: DOCUSATE 100 MG CAP PO SCH (08:30)
[2017-03-06] MEDS: MEGESTROL 400 MG/10 ML CUP PO SCH (08:30)
[2017-03-06 11:48] LABS: Glucose,Whole Blood 107 mg/dL (75-99)
--- NOTE | 2017-03-06 13:04 | P.PN ---
Subjective Principal diagnosis: Pneumothorax, flail chest Patient seen and examined. Patient states his breathing is okay today. He is still having pain. He is refusing to eat his lunch. He states he wants to go home tomorrow. Objective - Vital Signs Vital signs: Vital Signs Temp 97.6 F 03/06/17 12:00 Pulse 113 H 03/06/17 12:00 Resp 16 03/06/17 12:00 BP 142/84 03/06/17 12:00 Pulse Ox 94 L 03/06/17 12:00 Intake & Output 03/05/17 03/06/17 03/06/17 18:59 06:59 18:59 Intake Total 700 400 Output Total 350 125 Balance 350 275 Weight 54 kg Intake: IV 400 Sodium Chloride 0.9% 1, 400 000 ml @ 40 mls/hr IV . Q24H [facility] Rx#:[id number] Oral 700 Output: Urine 350 125 Other: Voiding Method Urinal Urinal Urinal Diaper Diaper Diaper Incontinent Incontinent Incontinent # Voids 2 3 # Bowel Movements 1 - Exam Gen.: Patient is alert and oriented 3, no acute distress Cardiovascular: Regular rate and rhythm, S1/S2 Lungs: Coarse breath sounds bilaterally Abdomen: Soft nontender nondistended positive bowel sounds Extremities: No edema - Labs CBC & Chem 7: 03/05/17 08:20 03/05/17 08:20 Labs: Abnormal Lab Results - Last 24 Hours (Table) 03/05/17 03/05/17 03/06/17 Range/Units 16:41 20:32 06:00 POC Glucose (mg/dL) 206 H 155 H 44 L (75-99) mg/dL 03/06/17 03/06/17 Range/Units 06:27 11:42 POC Glucose (mg/dL) 73 L 107 H (75-99) mg/dL Microbiology - Last 24 Hours (Table) 03/01/17 18:08 Blood Culture - Preliminary Blood No Growth after 96 hours Assessment and Plan Plan: Status post fall with multiple right-sided rib fractures Flail chest Right [place]-pneumothorax - complex/loculated Left basilar pneumonia Acute exacerbation of COPD Acute hypoxic respiratory failure Aspiration pneumonia, now improving Elevated right hemidiaphragm Chronic kidney disease stage III Alcoholism Active tobacco abuse Anemia Hyponatremia O2 to maintain saturation greater than or equal to 90% Pain control Pulmicort Steroid taper Duo nebs PT and OT Marinol for appetite Incentive spirometry and pulmonary hygiene GI and DVT prophylaxis ABX per ID Home O2 evaluation prior to discharge
--- NOTE | 2017-03-06 14:44 | PN ---
DATE OF SERVICE: 03/06/2017 Reason for followup is pneumonia. INTERVAL HISTORY: The patient is afebrile. He seems to be more awake, alert. He is breathing comfortably. Did have some congestive cough, but not bringing up any sputum. No nausea, no vomiting. No abdominal pain and no diarrhea. On examination, blood pressure 142/84 with a pulse of 130, temperature 97.6. He is 94% on 4 L nasal cannula. General description is an elderly male, lying in bed in no distress. RESPIRATORY SYSTEM: Unlabored breathing. Some coarse breath sounds on the right with no wheeze. HEART: S1, S2 with regular rate and rhythm. ABDOMEN: Soft. No tenderness. LABS: No new labs have been obtained today. Blood culture has been negative. Sputum was not collected. DIAGNOSTIC IMPRESSION AND PLAN: Patient with bilateral basilar pneumonia in a patient who did have a history with fall and right-sided hip fracture with pneumothorax status post chest tube x2. Patient did seem to respond to the broadening with antibiotic therapy to the vanco and Zosyn. Unfortunately, was unable to provide any sputum so we can narrow down his antibiotics. Will continue to try the same. Continue with current IV antibiotic. Continue with supportive care. MTDD
[2017-03-06] MEDS: amLODIPine 5 MG TAB PO SCH (16:25)
[2017-03-06 17:07] LABS: Glucose,Whole Blood 171 mg/dL (75-99)
[2017-03-06 20:28] LABS: Glucose,Whole Blood 135 mg/dL (75-99)
[2017-03-06] MEDS: ATORVASTATIN 10 MG TAB PO SCH (22:09)
[2017-03-07] MEDS: SODIUM CHLORIDE 0.9% 1,000 ML IV SCH ×2 (00:11→17:20)
[2017-03-07] MEDS: METOPROLOL TARTRATE 50 MG TAB PO SCH ×3 (04:43→21:38)
[2017-03-07] MEDS: oxyCODONE-APAP 5-325MG 1 EACH TAB PO PRN ×2 (04:43→09:20)
[2017-03-07 06:08] LABS: Glucose,Whole Blood 85 mg/dL (75-99)
[2017-03-07] MEDS: INSULIN LISPRO (humaLOG) 300 UNIT/3 ML VIAL SQ SCH ×4 (06:09→21:37)
[2017-03-07] MEDS: PANTOPRAZOLE 40 MG TABLET PO SCH (06:46)
[2017-03-07] MEDS: VANCOMYCIN 1,250 MG in SODIUM CHLORIDE 0.9% 250 ML IVPB SCH (06:46)
[2017-03-07] MEDS: BUDESONIDE 0.5 MG/2 ML NEBU INHALATION SCH ×2 (07:24→20:25)
[2017-03-07] MEDS: IPRATROPIUM-ALBUTEROL 3 ML NEB INHALATION SCH ×4 (07:24→20:25)
--- NOTE | 2017-03-07 08:44 | P.PN ---
Subjective Principal diagnosis: Continuing care. The patient is an 81-year-old white male essentially admitted for flail chest and pneumothorax. The patient has had a dayna post-course secondary to bilateral pneumonia. Pulmonology is on the case. He is now on Zosyn and vancomycin. Medically I suspect he is improving but has elements of end-stage COPD. He is agreeable to ECF. However he's been having significant tachycardia when trying to ambulate properly. Appetite is at her but still decreased. The patient is on Megace. Objective - Vital Signs Vital signs: Vital Signs Temp 98.4 F 03/07/17 04:00 Pulse 96 03/07/17 07:34 Resp 20 03/07/17 04:00 BP 102/70 03/07/17 04:00 Pulse Ox 96 03/07/17 04:00 Intake & Output 03/06/17 03/07/17 03/07/17 18:59 06:59 18:59 Intake Total 720 410 Balance 720 410 Weight 54 kg 53 kg Intake: IV 370 410 0.9% NS @ 75 mL/hr 320 Piperacillin-Tazobactam 3 50 50 .375 gm In Dextrose/Water 1 50ml.bag @ 12.5 mls/hr IVPB Q8HR [facility] Rx#: [id number] Sodium Chloride 0.9% 1, 360 000 ml @ 40 mls/hr IV . Q24H [facility] Rx#:[id number] Intake, IV Titration 250 Amount Vancomycin 1,250 mg In 250 Sodium Chloride 0.9% 250 ml @ 125 mls/hr IVPB Q24H [facility] Rx#:[id number] Oral 100 Other: Voiding Method Urinal Urinal Diaper Diaper Incontinent Incontinent # Voids 0 - Constitutional General appearance: Present: thin - EENT Eyes: Absent: abnormal pupil - Respiratory Respiratory: bilateral: diminished - Cardiovascular Rhythm: regular Heart sounds: normal: S1, S2 - Gastrointestinal General gastrointestinal: Present: soft. Absent: tenderness - Labs CBC & Chem 7: 03/05/17 08:20 03/05/17 08:20 Labs: Abnormal Lab Results - Last 24 Hours (Table) 03/06/17 03/06/17 03/06/17 Range/Units 11:42 16:42 20:26 POC Glucose (mg/dL) 107 H 171 H 135 H (75-99) mg/dL Microbiology - Last 24 Hours (Table) 03/01/17 18:08 Blood Culture - Preliminary Blood No Growth after 120 hours Assessment and Plan (1) Pneumothorax Status: Acute (2) Rib fracture Status: Acute (3) Opiate dependence Status: Acute (4) COPD (chronic obstructive pulmonary disease) Status: Acute (5) DJD (degenerative joint disease) Status: Acute Plan: Still somewhat tachycardic with activity. Day 7 of IV antibiotics for hospital acquired pneumonia. Anticipate discharge to [facility] in the a.m. Check CBC and CMP in a.m.
[2017-03-07] MEDS: amLODIPine 5 MG TAB PO SCH (09:23)
[2017-03-07] MEDS: PIPERACILLIN-TAZOBACTAM 3.375 GM in DEXTROSE/WATER 1 50ML.BAG IVPB SCH ×3 (09:23→23:14)
[2017-03-07] MEDS: LIDOCAINE 5% PATCH TOPICAL SCH (09:23)
[2017-03-07] MEDS: DOCUSATE 100 MG CAP PO SCH (09:23)
[2017-03-07] MEDS: LISINOPRIL 10 MG TAB PO SCH ×2 (09:23→21:39)
[2017-03-07] MEDS: MEGESTROL 400 MG/10 ML CUP PO SCH (09:23)
[2017-03-07] MEDS: predniSONE 10 MG TAB PO SCH (09:24)
[2017-03-07 10:52] LABS: Glucose,Whole Blood 91 mg/dL (75-99)
[2017-03-07 12:10] LABS: Glucose,Whole Blood 83 mg/dL (75-99)
[2017-03-07] MEDS ORDERED: DEXTROSE 5% IN WATER 250 ML with AMIODARONE 300 MG IV ONE (13:30)
[2017-03-07] MEDS ORDERED: MECLIZINE 12.5 MG TAB PO PRN (15:23)
--- NOTE | 2017-03-07 15:46 | P.PN ---
Subjective Principal diagnosis: pneumothorax, flail chest Patient seen and examined. Patient states he is feeling a little bit better today. He has not been out of bed. He states he "doesn't feel like moving." He states he did eat a little bit today. Objective - Vital Signs Vital signs: Vital Signs Temp 98.0 F 03/07/17 08:00 Pulse 115 H 03/07/17 14:00 Resp 20 03/07/17 04:00 BP 146/74 03/07/17 14:00 Pulse Ox 95 03/07/17 12:00 Intake & Output 03/06/17 03/07/17 03/07/17 18:59 06:59 18:59 Intake Total 720 410 0 Balance 720 410 0 Weight 54 kg 53 kg Intake: IV 370 410 0.9% NS @ 75 mL/hr 320 Piperacillin-Tazobactam 3 50 50 .375 gm In Dextrose/Water 1 50ml.bag @ 12.5 mls/hr IVPB Q8HR [facility] Rx#: [id number] Sodium Chloride 0.9% 1, 360 000 ml @ 40 mls/hr IV . Q24H [facility] Rx#:[id number] Intake, IV Titration 250 Amount Vancomycin 1,250 mg In 250 Sodium Chloride 0.9% 250 ml @ 125 mls/hr IVPB Q24H [facility] Rx#:[id number] Oral 100 0 Other: Voiding Method Urinal Urinal Urinal Diaper Diaper Diaper Incontinent Incontinent Incontinent # Voids 0 3 - Exam Gen.: Patient is alert and oriented 3, no acute distress Cardiovascular: Regular rate and rhythm, S1/S2 Lungs: Coarse breath sounds bilaterally Abdomen: Soft nontender nondistended positive bowel sounds Extremities: No edema - Labs CBC & Chem 7: 03/05/17 08:20 03/05/17 08:20 Labs: Abnormal Lab Results - Last 24 Hours (Table) 03/06/17 03/06/17 Range/Units 16:42 20:26 POC Glucose (mg/dL) 171 H 135 H (75-99) mg/dL Microbiology - Last 24 Hours (Table) 03/01/17 18:08 Blood Culture - Preliminary Blood No Growth after 120 hours Assessment and Plan Plan: Status post fall with multiple right-sided rib fractures Flail chest Right [place]-pneumothorax - complex/loculated Left basilar pneumonia Acute exacerbation of COPD Acute hypoxic respiratory failure Aspiration pneumonia, now improving Elevated right hemidiaphragm Chronic kidney disease stage III Alcoholism Active tobacco abuse Anemia Hyponatremia O2 to maintain saturation greater than or equal to 90% Pain control Pulmicort Steroid taper Duo nebs PT and OT Marinol for appetite Incentive spirometry and pulmonary hygiene GI and DVT prophylaxis ABX per ID Home O2 evaluation prior to discharge Plan for discharge to ECF tomorrow
[2017-03-07 16:59] LABS: Glucose,Whole Blood 141 mg/dL (75-99)
[2017-03-07] MEDS: AMIODARONE 450 MG in DEXTROSE 5% IN WATER 250 ML IV SCH ×2 (18:37)
[2017-03-07 21:38] LABS: Glucose,Whole Blood 121 mg/dL (75-99)
[2017-03-07] MEDS: ATORVASTATIN 10 MG TAB PO SCH (21:39)
--- NOTE | 2017-03-07 22:18 | PN ---
DATE OF SERVICE: 03/07/2017 REASON FOR FOLLOWUP: Pneumonia, nosocomial. INTERVAL HISTORY: The patient is afebrile; has been breathing more comfortably. Denies significant chest pain. He did have some cough but did not bring up any sputum. No abdominal pain or diarrhea. On examination, blood pressure is 156/72 with a pulse of 80, temperature 98. He is 97% on 4 L nasal cannula. General description is an elderly male lying in bed in no distress. RESPIRATORY SYSTEM: Unlabored breathing. Some coarse breath sounds at the base. No wheeze. HEART: S1, S2. Regular rate and rhythm. ABDOMEN: Soft. No tenderness. LABS: No new labs have been obtained today. DIAGNOSTIC IMPRESSION AND PLAN: Patient with possible nosocomial pneumonia with a complicated history after a fall with blood culture negative. Sputum not collected. Will go ahead and discontinue the vancomycin, keep the patient on Zosyn. That will be transitioned to Avelox at the time of discharge. Continue supportive care. MTDD
[2017-03-08] MEDS: AMIODARONE 450 MG in DEXTROSE 5% IN WATER 250 ML IV SCH ×2 (02:06)
[2017-03-08 02:18] LABS: Glucose,Whole Blood 113 mg/dL (75-99)
[2017-03-08] MEDS: VANCOMYCIN 1,250 MG in SODIUM CHLORIDE 0.9% 250 ML IVPB SCH (05:55)
[2017-03-08 06:12] LABS: Glucose,Whole Blood 117 mg/dL (75-99)
[2017-03-08] MEDS: INSULIN LISPRO (humaLOG) 300 UNIT/3 ML VIAL SQ SCH ×4 (06:42→21:30)
[2017-03-08] MEDS: PANTOPRAZOLE 40 MG TABLET PO SCH (06:46)
[2017-03-08 07:04] LABS: CHCM 33.7; HCT 31.7 % (39.0-53.0); HDW 3.56; HGB 10.5 gm/dL (13.0-17.5); MCH 30.6 pg (25.0-35.0); MCV 92.5 fL (80.0-100.0); Mean Platelet Volume 7.6; Poikilocytosis Slight; RBC 3.43 m/uL (4.30-5.90); WBC 8.4 k/uL (3.8-10.6)
[2017-03-08 07:21] LABS: ALT 36 U/L (21-72); AST 34 U/L (17-59); Alkaline Phosphatase 67 U/L (38-126); Anion Gap 7 mmol/L; Blood Urea Nitrogen 29 mg/dL (9-20); Calcium 7.6 mg/dL (8.4-10.2); Carbon Dioxide 28 mmol/L (22-30); Chloride 102 mmol/L (98-107); Glucose 128 mg/dL (74-99); Non-African American GFR(MDRD) 59 (>60 ml/min/1.73 sqM); Potassium 3.3 mmol/L (3.5-5.1); Sodium 137 mmol/L (137-145); Total Bilirubin 0.8 mg/dL (0.2-1.3); Total Protein 5.1 g/dL (6.3-8.2)
--- NOTE | 2017-03-08 08:04 | P.PN ---
Subjective Principal diagnosis: Tachycardia This is a continue present on a 1-year-old white male essentially admitted for flow chest with pneumothorax but has developed bilateral pneumonia. He has had a dayna course secondary to underlying history of COPD. We were anticipating discharged to ECF today but he is now on amiodarone drip secondary to significant atrial tachycardia. The patient seemingly is stable but will need more cardiac support. No new voiding difficulties. Objective - Vital Signs Vital signs: Vital Signs Temp 96.8 F L 03/07/17 20:00 Pulse 86 03/08/17 04:00 Resp 20 03/08/17 04:00 BP 156/95 03/08/17 04:00 Pulse Ox 98 03/08/17 04:00 Intake & Output 03/07/17 03/08/17 03/08/17 18:59 06:59 18:59 Intake Total 0 1299.419 Balance 0 1299.419 Weight 53 kg Intake: IV 1050 0.9% NS @ 40 mL/hr 520 Amiodarone 450 mg In 430 Dextrose 5% in Water 250 ml @ 1 MG/MIN 33.33 mls/ hr IV .Q7H31M [facility] Rx#: [id number] Piperacillin-Tazobactam 3 100 .375 gm In Dextrose/Water 1 50ml.bag @ 12.5 mls/hr IVPB Q8HR [facility] Rx#: [id number] Intake, IV Titration 249.419 Amount Amiodarone 450 mg In 249.419 Dextrose 5% in Water 250 ml @ 1 MG/MIN 33.33 mls/ hr IV .Q7H31M [facility] Rx#: [id number] Oral 0 Other: Voiding Method Urinal Urinal Diaper Diaper Incontinent Incontinent # Voids 3 - Constitutional General appearance: Present: thin - EENT Eyes: Absent: abnormal pupil - Respiratory Respiratory: bilateral: diminished, wheezing - Cardiovascular Rhythm: irregularly irregular Heart sounds: normal: S1, S2 - Gastrointestinal General gastrointestinal: Present: soft. Absent: tenderness - Labs CBC & Chem 7: 03/08/17 06:35 03/08/17 06:35 Labs: Abnormal Lab Results - Last 24 Hours (Table) 03/07/17 03/07/17 03/08/17 Range/Units 16:53 21:26 02:16 RBC (4.30-5.90) m/uL Hgb (13.0-17.5) gm/dL Hct (39.0-53.0) % Potassium (3.5-5.1) mmol/L BUN (9-20) mg/dL Glucose (74-99) mg/dL POC Glucose (mg/dL) 141 H 121 H 113 H (75-99) mg/dL Calcium (8.4-10.2) mg/dL Total Protein (6.3-8.2) g/dL Albumin (3.5-5.0) g/dL 03/08/17 03/08/17 03/08/17 Range/Units 06:10 06:35 06:35 RBC 3.43 L (4.30-5.90) m/uL Hgb 10.5 L (13.0-17.5) gm/dL Hct 31.7 L (39.0-53.0) % Potassium 3.3 L (3.5-5.1) mmol/L BUN 29 H (9-20) mg/dL Glucose 128 H (74-99) mg/dL POC Glucose (mg/dL) 117 H (75-99) mg/dL Calcium 7.6 L (8.4-10.2) mg/dL Total Protein 5.1 L (6.3-8.2) g/dL Albumin 2.1 L (3.5-5.0) g/dL Microbiology - Last 24 Hours (Table) 03/01/17 18:08 Blood Culture - Final Blood No Growth after 144 hours Assessment and Plan (1) Pneumothorax Status: Acute (2) Rib fracture Status: Acute (3) Opiate dependence Status: Acute (4) COPD (chronic obstructive pulmonary disease) Status: Acute (5) DJD (degenerative joint disease) Status: Acute Plan: Because of the amiodarone drip, we will withhold ECF discharge for today until we can get him on oral medication. Continue supportive care. Check CBC and CMP in a.m. Now, he most likely will be here for the weekend until he can get him on oral amiodarone after the infusion is completed. Dr. Chowdhury's group will be covering for the weekend. Time with Patient: Less than 30
[2017-03-08] MEDS: BUDESONIDE 0.5 MG/2 ML NEBU INHALATION SCH ×2 (08:25→20:51)
[2017-03-08] MEDS: IPRATROPIUM-ALBUTEROL 3 ML NEB INHALATION SCH ×4 (08:26→20:51)
[2017-03-08] MEDS: PIPERACILLIN-TAZOBACTAM 3.375 GM in DEXTROSE/WATER 1 50ML.BAG IVPB SCH ×3 (09:16→23:21)
[2017-03-08] MEDS: DOCUSATE 100 MG CAP PO SCH (09:16)
[2017-03-08] MEDS: POTASSIUM CHLORIDE ER 20 MEQ TAB.ER PO SCH ×4 (09:19→14:10)
[2017-03-08] MEDS: MEGESTROL 400 MG/10 ML CUP PO SCH (09:19)
[2017-03-08] MEDS: LIDOCAINE 5% PATCH TOPICAL SCH (09:20)
[2017-03-08] MEDS: METOPROLOL TARTRATE 50 MG TAB PO SCH ×2 (09:21→21:30)
[2017-03-08] MEDS: LISINOPRIL 10 MG TAB PO SCH ×2 (09:21→21:30)
[2017-03-08] MEDS: predniSONE 10 MG TAB PO SCH (09:21)
[2017-03-08] MEDS: amLODIPine 5 MG TAB PO SCH (09:22)
[2017-03-08] MEDS ORDERED: AMIODARONE 200 MG TAB PO SCH (11:15)
[2017-03-08 11:43] LABS: Glucose,Whole Blood 134 mg/dL (75-99)
--- NOTE | 2017-03-08 12:02 | PN ---
DATE OF SERVICE: 03/08/2017 The patient is an 81-year-old male who is seen sitting up in bed sleeping, but easily arousable. Denies any pain. Has not been up and out of bed moving around. Subsequently denies any worsening shortness of breath. The patient is afebrile, hemodynamically stable, in no acute distress. The patient had been on an amiodarone drip, however, that has been changed to oral amiodarone and heart rate is controlled at this time. PHYSICAL EXAM: VITAL SIGNS: Temp is 98.6, heart rate is 86, respiratory rate is 14, blood pressure is 155/87, O2 sats 97% on 4 L O2 via nasal cannula. HEENT: Head is normocephalic, atraumatic. Neck is supple. Trachea is midline. LUNGS: With essentially clear breath sounds. No rales or wheezes. HEART: S1 and S2 are heard, irregular, not tachycardic. ABDOMEN: Soft. Bowel sounds are positive. EXTREMITIES: With no edema. NEUROLOGIC: The patient is awake, alert. LABS: White count is 8.4, hemoglobin is 10.5, hematocrit 31.7 with 178,000 platelets. Sodium is 137, potassium is 3.3, chloride 102, CO2 is 28, anion gap is 7. BUN is 29, creatinine is 1.19. Glucose is 128. Calcium 7.6. Total bili is 0.8, AST is 34, ALT is 36, alk phos is 67. Total protein 5.1. Albumin is 2.1. No new imaging to review. IMPRESSION: 1. Status post fall with multiple right-sided rib fractures. 2. Flail chest. 3. Right hydropneumothorax, complex loculated. 4. Left basilar pneumonia. 5. Acute exacerbation of chronic obstructive pulmonary disease. 6. Acute hypoxic respiratory failure. 7. Aspiration pneumonia, improving. 8. Elevated right hemidiaphragm. 9. Chronic kidney disease, stage III. 10. Alcoholism. 11. Active tobacco abuse. 12. Anemia. 13. Hyponatremia. 14. Hypokalemia. PLAN: Continue O2 to maintain saturations greater than or equal to 90%. Replace potassium. Continue pain control. Continue bronchodilators and aerosolized steroids. Continue steroid taper. Continue PT and OT. Continue Marinol for appetite. Continue incentive spirometry and pulmonary hygiene. Continue GI and DVT prophylaxis. Continue antibiotics per Infectious Disease. Agree with plan to ECF for patient to undergo rehab. The patient is stable from a pulmonary standpoint for discharge to ECF.
--- NOTE | 2017-03-08 13:10 | PN ---
Antony Jacob is a patient of Dr. Federico Peoples who underwent coronary angiography yesterday and he had triple-vessel coronary artery disease but medical treatment was advised. This morning he was quite bradycardic with a ventricular bigeminy and therefore the dose of beta blockers was reduced. He was lying flat in bed, no shortness of breath, no chest discomfort. His blood pressure is 138/83 mmHg. He is afebrile, 97.9 degrees Fahrenheit. Heart sounds are soft. Breath sounds are reduced bilaterally. Abdomen and extremities are warm, no edema. IMPRESSION: 1. Triple vessel coronary artery disease. 2. Sinus bradycardia. 3. Ventricular bigeminy. SUGGEST: Medical management for coronary artery disease and reduce the dose of metoprolol to 25 mg twice daily. He will follow up with Dr. Federico Peoples as an outpatient.
--- NOTE | 2017-03-08 13:39 | PN ---
Mr. Jacob is an 81-year-old male patient who has paroxysmal atrial fibrillation with RVR. He ( ) on IV amiodarone today I am switching him to oral amiodarone. He is doing well. He is in sinus rhythm. His vitals are as follows: He is afebrile, 97.9 degrees Fahrenheit, blood pressure 138/83 mmHg, respirations 18, heart rate 74 beats a minute and regular. Breath sounds are reduced bilaterally. No rhonchi. No crackles. Heart sounds are S1 and S2 soft. Abdomen is soft. Extremities are warm. No edema. IMPRESSION: Paroxysmal atrial fibrillation with rapid ventricular response. SUGGEST: Switch to p.o. amiodarone 400 mg p.o. daily for one month and then decrease to 200 mg p.o. daily thereafter for the next 2 months and then subsequently 100 mg p.o. daily thereafter. I made sure that there was an ( ) limit for the 400 mg limited one month duration only ( ) mg daily. Will sign off. Please call as needed.
[2017-03-08] MEDS: SODIUM CHLORIDE 0.9% 1,000 ML IV SCH (15:49)
[2017-03-08 16:17] LABS: Glucose,Whole Blood 109 mg/dL (75-99)
--- NOTE | 2017-03-08 16:56 | PN ---
DATE OF SERVICE: 03/08/2017 REASON FOR FOLLOWUP: Pneumonia, nosocomial. INTERVAL HISTORY: The patient is afebrile. He seems to be more awake and alert, breathing comfortably. The patient denies significant chest pain. Occasional cough, non-productive. No abdominal pain and no diarrhea. On examination, blood pressure is 138/83 with a pulse of 74, temperature 97.9. He is 96% on 3 L nasal cannula. General description is an elderly male lying in bed in no distress. RESPIRATORY SYSTEM: Unlabored breathing. Some coarse breath sounds, bilateral bases. No wheeze. HEART: S1, S2. Regular rate and rhythm. ABDOMEN: Soft. No tenderness. LABS: Hemoglobin is 7.5, white count 8.4 with a BUN of 29, creatinine 1.19. Blood culture negative. Sputum was not collected. DIAGNOSTIC IMPRESSION AND PLAN: Patient with bilateral basilar nosocomial pneumonia. Sputum has not been collection. Blood cultures are negative. Currently on Zosyn with a plan to transition to oral at time of discharge. Continue supportive care.
[2017-03-08 21:27] LABS: Glucose,Whole Blood 126 mg/dL (75-99)
[2017-03-08] MEDS: ATORVASTATIN 10 MG TAB PO SCH (21:30)
[2017-03-08] MEDS: oxyCODONE-APAP 5-325MG 1 EACH TAB PO PRN (21:33)
[2017-03-09] MEDS: oxyCODONE-APAP 5-325MG 1 EACH TAB PO PRN ×4 (01:33→21:19)
[2017-03-09] MEDS: INSULIN LISPRO (humaLOG) 300 UNIT/3 ML VIAL SQ SCH ×4 (06:16→21:03)
[2017-03-09] MEDS: PANTOPRAZOLE 40 MG TABLET PO SCH (06:17)
[2017-03-09 06:25] LABS: Glucose,Whole Blood 93 mg/dL (75-99)
[2017-03-09 08:15] LABS: CH 30.6; CHCM 32.4; HCT 29.8 % (39.0-53.0); HDW 3.39; HGB 9.6 gm/dL (13.0-17.5); Hypochromasia Slight; MCH 30.6 pg (25.0-35.0); MCHC 32.2 g/dL (31.0-37.0); MCV 94.9 fL (80.0-100.0); Mean Platelet Volume 7.4; RBC 3.14 m/uL (4.30-5.90); RDW 14.2 % (11.5-15.5); WBC 9.1 k/uL (3.8-10.6)
[2017-03-09 08:48] LABS: ALT 30 U/L (21-72); AST 30 U/L (17-59); Alkaline Phosphatase 73 U/L (38-126); Anion Gap 6 mmol/L; Blood Urea Nitrogen 33 mg/dL (9-20); Calcium 7.6 mg/dL (8.4-10.2); Carbon Dioxide 25 mmol/L (22-30); Chloride 107 mmol/L (98-107); Glucose 107 mg/dL (74-99); Non-African American GFR(MDRD) 56 (>60 ml/min/1.73 sqM); Potassium 4.1 mmol/L (3.5-5.1); Sodium 138 mmol/L (137-145); Total Bilirubin 0.8 mg/dL (0.2-1.3)
[2017-03-09] MEDS: amLODIPine 5 MG TAB PO SCH (09:52)
[2017-03-09] MEDS: PIPERACILLIN-TAZOBACTAM 3.375 GM in DEXTROSE/WATER 1 50ML.BAG IVPB SCH ×3 (09:52→23:25)
[2017-03-09] MEDS: LISINOPRIL 10 MG TAB PO SCH ×2 (09:53→21:17)
[2017-03-09] MEDS: MEGESTROL 400 MG/10 ML CUP PO SCH (09:53)
[2017-03-09] MEDS: predniSONE 10 MG TAB PO SCH (09:53)
[2017-03-09] MEDS: DOCUSATE 100 MG CAP PO SCH (09:53)
[2017-03-09] MEDS: METOPROLOL TARTRATE 50 MG TAB PO SCH ×2 (09:53→21:17)
[2017-03-09] MEDS: LIDOCAINE 5% PATCH TOPICAL SCH (09:53)
[2017-03-09] MEDS: IPRATROPIUM-ALBUTEROL 3 ML NEB INHALATION SCH ×3 (11:47→19:25)
[2017-03-09 12:20] LABS: Glucose,Whole Blood 88 mg/dL (75-99)
--- NOTE | 2017-03-09 15:20 | PN ---
DATE OF SERVICE: 03/09/2017 INTERVAL HISTORY: Mr. Jacob is an 81-year-old male admitted to the hospital with hydropneumothorax and complicated pleural effusion which is loculated, and eventually patient was diagnosed to have aspiration pneumonia, which is currently being treated. Patient is status post fall and had right-sided multiple rib fractures and flail chest at the time of admission. Currently the patient is on antibiotics in the form of Zosyn. Patient also has underlying severe COPD. Eventually the patient had significant atrial tachycardia, for which he was started on amiodarone drip. That was changed to p.o. amiodarone yesterday. REVIEW OF SYSTEMS: CONSTITUTIONAL: Patient complains of generalized fatigue and weakness. CARDIAC: No chest pain. No palpitations. RESPIRATORY: He complains of some chest tightness. No difficulty in breathing. CARDIAC: No palpitations. GI: No abdominal pain, nausea, vomiting or diarrhea. : No dysuria or hematuria. On examination, patient's vital signs are temperature 97.8, heart rate 66, respiratory rate 16, blood pressure 149/70. Saturating at 95% on 3 L of nasal cannula. Patient's medications have been reviewed. GENERAL APPEARANCE: Patient is thin, frail, cachectic. ENT: Oral mucosa is moist. CARDIAC: S1, S2 heard. No additional sounds. LUNGS: Right-sided basilar crackles and positive rhonchi. No active wheezing. ABDOMEN: Soft. Bowel sounds positive. HEALTHCARE MARKETER: Alert, awake, oriented x3. No focal deficits. EXTREMITIES: No edema. No cyanosis. No clubbing. PATIENT'S LABS: White count of 9.1, hemoglobin 9.6, platelets of 207. Sodium 138, potassium 4.1, chloride 105, bicarb 25. BUN 33, creatinine 1.24. Calcium 7.5. Magnesium within normal limits. C difficile is negative. ASSESSMENT AND PLAN: 1. Right-sided rib fractures with flail chest, status post fall. 2. Right-sided hydropneumothorax. 3. Bilateral lower lobe pneumonia which is aspiration pneumonia. 4. Acute exacerbation of chronic obstructive pulmonary disease. 5. Hypoxic respiratory failure secondary to the above. 6. Elevated right diaphragm. 7. Chronic kidney disease, stage III. 8. Alcohol abuse. 9. Active nicotine addiction. 10. Anemia. 11. Hyponatremia, improved. PLAN: Plan is to continue the patient on Zosyn for his aspiration pneumonia. Continue with breathing treatments and steroids. The patient has been changed to p.o. amiodarone. He is currently on metoprolol 100 mg b.i.d. Overall prognosis is guarded due to chronic multiple conditions. The plan is to discharge the patient to ECF. [facility]
[2017-03-09] MEDS: BUDESONIDE 0.5 MG/2 ML NEBU INHALATION SCH ×2 (15:23→19:25)
[2017-03-09 17:32] LABS: Glucose,Whole Blood 156 mg/dL (75-99)
[2017-03-09 20:39] LABS: Glucose,Whole Blood 129 mg/dL (75-99)
[2017-03-09] MEDS: SODIUM CHLORIDE 0.9% 1,000 ML IV SCH (21:16)
[2017-03-09] MEDS: ATORVASTATIN 10 MG TAB PO SCH (21:17)
[2017-03-10] MEDS: oxyCODONE-APAP 5-325MG 1 EACH TAB PO PRN ×3 (02:48→19:59)
[2017-03-10 07:30] LABS: Glucose,Whole Blood 59 mg/dL (75-99)
[2017-03-10] MEDS: IPRATROPIUM-ALBUTEROL 3 ML NEB INHALATION SCH ×4 (07:41→19:42)
[2017-03-10] MEDS: BUDESONIDE 0.5 MG/2 ML NEBU INHALATION SCH ×2 (07:41→19:42)
[2017-03-10 07:44] LABS: Glucose,Whole Blood 73 mg/dL (75-99)
[2017-03-10] MEDS: INSULIN LISPRO (humaLOG) 300 UNIT/3 ML VIAL SQ SCH ×4 (07:53→21:27)
[2017-03-10] MEDS: PANTOPRAZOLE 40 MG TABLET PO SCH (07:58)
[2017-03-10] MEDS: DOCUSATE 100 MG CAP PO SCH (07:58)
[2017-03-10] MEDS: METOPROLOL TARTRATE 50 MG TAB PO SCH ×2 (07:58→20:08)
[2017-03-10] MEDS: amLODIPine 5 MG TAB PO SCH (07:58)
[2017-03-10] MEDS: LIDOCAINE 5% PATCH TOPICAL SCH (07:59)
[2017-03-10] MEDS: MEGESTROL 400 MG/10 ML CUP PO SCH (07:59)
[2017-03-10] MEDS: LISINOPRIL 10 MG TAB PO SCH ×2 (07:59→20:08)
[2017-03-10] MEDS: predniSONE 10 MG TAB PO SCH (07:59)
[2017-03-10] MEDS: PIPERACILLIN-TAZOBACTAM 3.375 GM in DEXTROSE/WATER 1 50ML.BAG IVPB SCH ×3 (09:41→23:01)
[2017-03-10 11:36] LABS: Glucose,Whole Blood 102 mg/dL (75-99)
--- NOTE | 2017-03-10 12:53 | PN ---
DATE OF SERVICE: 03/10/2017 INTERVAL HISTORY: Mr. Jacob is an 81-year-old male admitted to the hospital with hydropneumothorax and complicated pleural effusion which is loculated and eventually the patient was diagnosed to have aspiration pneumonia, which is currently being treated. The patient is status post fall and had right sided multiple rib fractures and ( ) chest at the time of admission. The patient is currently on antibiotics in the form of Zosyn. Patient also has underlying severe chronic obstructive pulmonary disease. Patient developed atrial tachycardia for which he was started on Amiodarone drip. Cardiology on board following the patient. The plan was to change to him to p.o. amiodarone but there is no order for amiodarone in the medication list. So we will discuss with cardiology whether the patient has to be on oral Amiodarone or not. REVIEW OF SYSTEMS: CONSTITUTIONAL: The patient complains of generalized fatigue and weakness. CARDIAC: No chest pain or palpitations. RESPIRATORY: Complains of some chest tightness. No difficulty in breathing. CARDIAC: No palpitations. GI: No abdominal pain, nausea, vomiting, or diarrhea. : No dysuria or hematuria. On examination, patient's vital signs, temperature is 97.4, heart rate 98, respiratory rate 18, blood pressure 145/81, saturating at 98% on 3 liters of nasal cannula. GENERAL EXAMINATION: Patient is thin, frail, cachectic. HEAD: Atraumatic, normocephalic. CARDIAC: S1, S2 heard. No additional sounds. LUNGS: Right-sided basilar crackles and positive rhonchi. No active wheezing. ABDOMEN: Soft. Bowel sounds positive. TREAD BOOKER: Alert, awake, oriented x3. No focal neurological deficits. EXTREMITIES: No edema. No cyanosis, no clubbing. Patient's labs: No new labs from this morning. ASSESSMENT AND PLAN: 1. Right sided rib fractures with flail chest, status post fall. 2. Right-sided hydropneumothorax. 3. Bilateral lower lobe pneumonia which is aspiration pneumonia. 4. Acute exacerbation of chronic obstructive pulmonary disease. 5. Hypoxic respiratory failure secondary to above. 6. Elevated right diaphragm. 7. Chronic kidney disease, stage III. 8. Alcohol abuse. 9. Active nicotine addiction. 10. Anemia, most likely anemia of chronic disease. 11. Hyponatremia that has improved. PLAN: The plan is to continue the patient on Zosyn for his aspiration pneumonia. Continue with breathing treatments and steroids. The patient was started on amiodarone drip for his atrial tachycardia and eventually the plan was to change him to p.o. amiodarone but this is not on the medication list so we will check with cardiology the need for him to be on amiodarone or not. Overall prognosis is guarded due to chronic medical conditions. The plan is to discharge the patient home with home health care once medically stable. RAJ
[2017-03-10 17:13] LABS: Glucose,Whole Blood 187 mg/dL (75-99)
[2017-03-10] MEDS: SODIUM CHLORIDE 0.9% 1,000 ML IV SCH (19:58)
[2017-03-10] MEDS: ATORVASTATIN 10 MG TAB PO SCH (20:08)
[2017-03-10 20:49] LABS: Glucose,Whole Blood 159 mg/dL (75-99)
[2017-03-11 07:22] LABS: Glucose,Whole Blood 44 mg/dL (75-99)
[2017-03-11] MEDS: IPRATROPIUM-ALBUTEROL 3 ML NEB INHALATION SCH ×4 (07:24→19:48)
[2017-03-11] MEDS: BUDESONIDE 0.5 MG/2 ML NEBU INHALATION SCH ×2 (07:24→19:48)
[2017-03-11 07:42] LABS: Glucose,Whole Blood 70 mg/dL (75-99)
[2017-03-11] MEDS: PIPERACILLIN-TAZOBACTAM 3.375 GM in DEXTROSE/WATER 1 50ML.BAG IVPB SCH ×2 (07:50→16:30)
[2017-03-11] MEDS: LISINOPRIL 10 MG TAB PO SCH ×2 (07:51→20:29)
[2017-03-11] MEDS: METOPROLOL TARTRATE 50 MG TAB PO SCH ×2 (07:51→20:28)
[2017-03-11] MEDS: LIDOCAINE 5% PATCH TOPICAL SCH (07:51)
[2017-03-11] MEDS: predniSONE 10 MG TAB PO SCH (07:51)
[2017-03-11] MEDS: MEGESTROL 400 MG/10 ML CUP PO SCH (07:51)
[2017-03-11] MEDS: INSULIN LISPRO (humaLOG) 300 UNIT/3 ML VIAL SQ SCH ×4 (07:52→20:29)
[2017-03-11] MEDS: PANTOPRAZOLE 40 MG TABLET PO SCH (07:52)
[2017-03-11] MEDS: DOCUSATE 100 MG CAP PO SCH (07:52)
[2017-03-11] MEDS: amLODIPine 5 MG TAB PO SCH (07:52)
[2017-03-11] MEDS: oxyCODONE-APAP 5-325MG 1 EACH TAB PO PRN ×3 (07:52→21:31)
--- NOTE | 2017-03-11 07:59 | P.DS ---
Providers Date of admission: 02/16/17 19:27 Attending physician: Giuseppe Atkinson Consults: 02/17/17 00:32 Consult Physician Urgent Consulting Provider: Enzo Norman Consult Reason/Comments: possible chest tube Do you want consulting provider notified?: Yes, Notify in am 02/17/17 00:33 Consult Physician Urgent Consulting Provider: Dawna Fletcher Consult Reason/Comments: pneumothorax Do you want consulting provider notified?: Yes, Notify in am 02/18/17 08:54 Consult Physician Routine Consulting Provider: Feliz Calixto Consult Reason/Comments: trauma/fall Do you want consulting provider notified?: Yes 02/20/17 11:03 Consult Physician Routine Consulting Provider: Morteza Wang Consult Reason/Comments: Right chest thoracentesis. Do you want consulting provider notified?: Yes 02/23/17 14:41 Consult Physician Routine Consulting Provider: Helio Jacobo Consult Reason/Comments: medical debility Do you want consulting provider notified?: Yes 02/26/17 21:54 Consult Physician Routine Consulting Provider: [facility] Consult Reason/Comments: A-Fib/ RVR antiocoagulation Do you want consulting provider notified?: Yes, Notify in am 03/01/17 14:10 Consult Physician Routine Consulting Provider: Sergei Quezada Consult Reason/Comments: HAP Do you want consulting provider notified?: Yes Primary care physician: Giuseppe Atkinson - Discharge Diagnosis(es) (1) Pneumothorax Current Visit: Yes Status: Acute (2) Rib fracture Current Visit: Yes Status: Acute (3) Opiate dependence Current Visit: Yes Status: Acute (4) COPD (chronic obstructive pulmonary disease) Current Visit: Yes Status: Acute (5) DJD (degenerative joint disease) Current Visit: Yes Status: Acute Hospital Course: This discharge summary on an 81-year-old white male who had long course of treatment secondary to spontaneous pneumothorax with COPD. He is transferred because of the possibility to 2 thoracic surgery secondary to flail chest. The patient was stabilized with appropriate thoracic and respiratory treatment but developed pneumonia and had a dayna course after this. His significant poor baseline secondary to severe alcoholism and chronic tobacco abuse. The patient was stabilized on appropriate antibiotic but is still significantly weak. [facility]. Prognosis guarded secondary to multiple comorbidities, advanced age and element of COPD. Patient Condition at Discharge: Fair Plan - Discharge Summary New Discharge Prescriptions: amLODIPine [Norvasc] 5 mg PO DAILY #30 tab Atorvastatin [Lipitor] 10 mg PO HS #30 tab Megestrol [Megace] 400 mg PO DAILY #30 dose Discharge Medication List Albuterol Inhaler [Ventolin Hfa Inhaler] 1 - 2 puff INHALATION RT-Q6H PRN [History] Amitriptyline HCl [Elavil] 100 mg PO HS 02/16/17 [History] Lisinopril [Zestril] 5 mg PO BID 02/16/17 [History] Metoprolol Tartrate [Lopressor] 50 mg PO BID 02/16/17 [History] Omeprazole 40 mg PO DAILY 02/16/17 [History] Simvastatin [Zocor] 20 mg PO HS 02/16/17 [History] Terazosin HCl [Hytrin] 10 mg PO HS 02/16/17 [History] oxyCODONE-APAP 10-325MG [Percocet 10-325 mg] 1 tab PO Q4H PRN 02/16/17 [History] Atorvastatin [Lipitor] 10 mg PO HS #30 tab 03/11/17 [Rx] Ipratropium-Albuterol Nebulize [Duoneb 0.5 mg-3 mg/3 ml Soln] 3 ml INHALATION RT -QID neb 03/11/17 [Rx] Megestrol [Megace] 400 mg PO DAILY #30 dose 03/11/17 [Rx] amLODIPine [Norvasc] 5 mg PO DAILY #30 tab 03/11/17 [Rx] Follow up Appointment(s)/Referral(s): Sonny Segal MD [STAFF PHYSICIAN] - 1 Week Dawna Fletcher DO [Doctor of Osteopathic Medicine] - 1 Week
[2017-03-11 08:07] LABS: Basophils % (A) 0 %; CH 30.3; CHCM 32.5; Eosinophils # (A) 0.1 k/uL (0-0.7); Eosinophils % (A) 0 %; HCT 31.3 % (39.0-53.0); HDW 3.58; HGB 9.9 gm/dL (13.0-17.5); Hypochromasia Slight; Luc # (Auto) 0.13; Luc % (Auto) 1; Lymphocytes # (A) 0.8 k/uL (1.0-4.8); Lymphocytes % (A) 8 %; MCH 29.4 pg (25.0-35.0); MCHC 31.5 g/dL (31.0-37.0); MCV 93.5 fL (80.0-100.0); Mean Platelet Volume 7.2; Monocytes # (A) 0.3 k/uL (0-1.0); Monocytes % (A) 2 %; Neutrophils # (A) 9.4 k/uL (1.3-7.7); Neutrophils % (A) 88 %; Poikilocytosis Slight; RBC 3.35 m/uL (4.30-5.90); RDW 14.3 % (11.5-15.5); WBC 10.7 k/uL (3.8-10.6); WBC (Perox) 10.89
[2017-03-11 08:09] VITALS: RESP 16
--- NOTE | 2017-03-11 08:11 | PN ---
DATE OF SERVICE: 03/10/2017 Reason for followup is pneumonia, nosocomial. INTERVAL HISTORY: The patient is afebrile. He is breathing slightly comfortably. Denies any significant chest pain, occasional cough, no abdominal pain, no diarrhea. On examination, blood pressure is 125/85 with a pulse of 88, temperature 98.1, he is 93% on 3 L nasal cannula. General description is an elderly male, lying in bed in no distress. RESPIRATORY SYSTEM: Unlabored breathing with coarse breath sounds at the base, bilaterally. HEART: S1, S2. Regular rate and rhythm. ABDOMEN: Soft. No tenderness. LABS: Hemoglobin 9.6, white count of 9.1 with a BUN of 33, creatinine 1.24. DIAGNOSTIC IMPRESSION AND PLAN: Patient with nosocomial pneumonia with a component due to respiratory history of pneumothorax requiring multiple chest tubes. Patient has received 10 days of IV Zosyn. Medically will switch to Avelox 400 for another week to finish the course of therapy. Continue supportive care. MTDD
[2017-03-11 08:37] LABS: Anion Gap 9 mmol/L; Blood Urea Nitrogen 29 mg/dL (9-20); Calcium 7.7 mg/dL (8.4-10.2); Carbon Dioxide 24 mmol/L (22-30); Chloride 107 mmol/L (98-107); Glucose 119 mg/dL (74-99); Non-African American GFR(MDRD) 59 (>60 ml/min/1.73 sqM); Potassium 3.7 mmol/L (3.5-5.1); Sodium 140 mmol/L (137-145)
[2017-03-11 11:55] LABS: Glucose,Whole Blood 142 mg/dL (75-99)
--- NOTE | 2017-03-11 12:32 | PN ---
DATE OF SERVICE: 03/11/2017 Reason for Followup is pneumonia, nosocomial. INTERVAL HISTORY: The patient is afebrile. Has been breathing comfortably. Denies any significant pain, occasional cough. No abdominal pain, No diarrhea. On examination, blood pressure 157/80 with a pulse of 81, temperature 97.9. He is 96% on 3 L. General description is an elderly male, lying in bed in no distress. RESPIRATORY SYSTEM: Unlabored breathing. Clear to auscultation. HEART: S1, S2. Regular rate and rhythm. ABDOMEN: Soft, no tenderness. LAB: Hemoglobin of 9.9, white count 10.7, BUN of 29, creatinine of 1.18. DIAGNOSTIC IMPRESSION AND PLAN: Partial with nosocomial pneumonia, sputum has been negative for any pathogen. Plan is to finish therapy with oral Avelox ( ). Continue supportive care.
[2017-03-11 14:20] VITALS: BMI 17.3
[2017-03-11 17:11] LABS: Glucose,Whole Blood 100 mg/dL (75-99)
[2017-03-11] MEDS: SODIUM CHLORIDE 0.9% 1,000 ML IV SCH (17:18)
[2017-03-11 20:25] LABS: Glucose,Whole Blood 128 mg/dL (75-99)
[2017-03-11] MEDS: ATORVASTATIN 10 MG TAB PO SCH (20:29)
[2017-03-12] MEDS: PIPERACILLIN-TAZOBACTAM 3.375 GM in DEXTROSE/WATER 1 50ML.BAG IVPB SCH ×2 (00:05→08:30)
[2017-03-12 07:31] LABS: Glucose,Whole Blood 81 mg/dL (75-99)
[2017-03-12 07:39] VITALS: BP 157/80; TEMP 97.3
[2017-03-12] MEDS: predniSONE 10 MG TAB PO SCH (08:31)
[2017-03-12] MEDS: METOPROLOL TARTRATE 50 MG TAB PO SCH (08:31)
[2017-03-12] MEDS: MEGESTROL 400 MG/10 ML CUP PO SCH (08:31)
[2017-03-12] MEDS: LIDOCAINE 5% PATCH TOPICAL SCH (08:31)
[2017-03-12] MEDS: LISINOPRIL 10 MG TAB PO SCH (08:31)
[2017-03-12] MEDS: DOCUSATE 100 MG CAP PO SCH (08:32)
[2017-03-12] MEDS: amLODIPine 5 MG TAB PO SCH (08:32)
[2017-03-12] MEDS: PANTOPRAZOLE 40 MG TABLET PO SCH (08:33)
[2017-03-12] MEDS: INSULIN LISPRO (humaLOG) 300 UNIT/3 ML VIAL SQ SCH ×2 (08:33→12:15)
[2017-03-12] MEDS: BUDESONIDE 0.5 MG/2 ML NEBU INHALATION SCH (08:58)
[2017-03-12] MEDS: IPRATROPIUM-ALBUTEROL 3 ML NEB INHALATION SCH ×2 (08:58→12:10)
[2017-03-12 11:33] LABS: Glucose,Whole Blood 102 mg/dL (75-99)
[2017-03-12 12:35] VITALS: PULSE 96
--- NOTE | 2017-03-12 14:43 | PN ---
DATE OF SERVICE: 03/12/2017 Reason for followup is nosocomial pneumonia. INTERVAL HISTORY: The patient is afebrile. He is currently breathing comfortably. Denied any chest pain or cough. No nausea, vomiting, or any diarrhea has been noticed. On examination, blood pressure 157/80 with a pulse of 66, temperature 97.3. He is 97% on 3 L nasal cannula. General description is an elderly male, lying in bed in no distress. RESPIRATORY SYSTEM: Unlabored breathing. Some coarse breaths at the base, no wheeze. HEART: S1, S2 with regular rate and rhythm. ABDOMEN: Soft, no tenderness. LABS: No new labs have been obtained today. DIAGNOSTIC IMPRESSION AND PLAN: Patient with bilateral basilar pneumonia with a component of possible nosocomial. Plan to finish therapy with oral Avelox and script has been sent to pharmacy. Continue supportive care.
--- NOTE | 2017-03-20 14:59 | P.PCN ---
Date of Procedure: 02/19/17 Preoperative Diagnosis: R HEMO-PNEUMOTHORAX Postoperative Diagnosis: SAME Procedure(s) Performed: R THORAVENT INSERTION Implants: Anesthesia: local Surgeon: Enzo Norman Pathology: none sent Condition: stable Disposition: no change Indications for Procedure: INCREASING TRAUMATIC R HEMO-PNEUMOTHORAX Operative Findings: SAME Description of Procedure: Under aseptic technique and after securing L/A with lidocaiine 2%, a 13F 13cm THORAVENT was inserted via the second intercostal space mid-clavicular line without difficulty. It yielded air and some blood and was connected to a pleurovac suction . CXR ordered. Tolerated well.
== END 2017-03-12 14:45 | DRG 199 ==
LOC: 6SEL 19:27 → 5MS5E 02-28 20:05 → 6SEL 03-01 08:27 → 5MS5E 03-09 07:57
PROVIDERS: ADMIT Family Medicine; ATTEND Family Medicine
DX: S27.0XXA Traumatic pneumothorax, initial encounter (principal); J69.0 Pneumonitis due to inhalation of food and vomit; J96.21 Acute and chronic respiratory failure with hypoxia; S22.5XXA Flail chest, initial encounter for closed fracture; D84.9 Immunodeficiency, unspecified; E87.1 Hypo-osmolality and hyponatremia; F11.20 Opioid dependence, uncomplicated; J90 Pleural effusion, not elsewhere classified; J44.0 Chronic obstructive pulmonary disease with (acute) lower respiratory infection; N18.3 Chronic kidney disease, stage 3 (moderate); I47.1 Supraventricular tachycardia; I48.0 Paroxysmal atrial fibrillation; J44.1 Chronic obstructive pulmonary disease with (acute) exacerbation; D63.8 Anemia in other chronic diseases classified elsewhere; W19.XXXA Unspecified fall, initial encounter; E16.2 Hypoglycemia, unspecified; E87.6 Hypokalemia; F17.200 Nicotine dependence, unspecified, uncomplicated; F10.10 Alcohol abuse, uncomplicated; I12.9 Hypertensive chronic kidney disease with stage 1 through stage 4 chronic kidney disease, or unspecified chronic kidney disease; I25.10 Atherosclerotic heart disease of native coronary artery without angina pectoris; J20.9 Acute bronchitis, unspecified; K21.9 Gastro-esophageal reflux disease without esophagitis; M19.90 Unspecified osteoarthritis, unspecified site; T79.7XXA Traumatic subcutaneous emphysema, initial encounter; Y95 Nosocomial condition; Z79.899 Other long term (current) drug therapy
CPT/HCPCS: 71010; 71020; 74176; 76604; 80048; 80053; 80202; 82553; 83735; 84100; 84132; 84484; 85025; 85027; 85610; 86850; 86900; 86901; 86920; 87040; 87324; 93306; 94640; 94760